=== PATIENT | male | born 1985 | race Asian ===

== ENCOUNTER 2016-07-02 01:37 | Emergency (ER) | payer MEDICAID, OTHER ==
[~2016-07-02 01:37] MED LIST: ARTIDRO EACH EYE; BENZOTROPINE PO; CELE10TA9 PO; CHLO100 PO; DOCU100T9 PO; FLUT50SP; HALO10 PO; LORA1TAB PO
[2016-07-02 02:03] VITALS: BP 141/88; PULSE 71; RESP 18; TEMP 97.8; O2SAT 98
[2016-07-02] MEDS ORDERED: POLYSOL14 EACH EYE (02:25)
[2016-07-02] MEDS ORDERED: CELE10TA PO (02:25)
[2016-07-02] MEDS ORDERED: HALO10TA PO ×2 (02:25→07:39)
[2016-07-02] MEDS ORDERED: CHLO100T2 PO (02:25)
[2016-07-02] MEDS ORDERED: LORA1TAB12 PO (02:25)
[2016-07-02] MEDS ORDERED: IBUPROFEN 800 MG TAB PO ONE (02:30)
--- NOTE | 2016-07-02 02:33 | PD ---
HPI Chief Complaint: Psychiatric Symptoms Time Seen by Provider: 02:27 Travel History International Travel<30 days: No Contact w/Intl Traveler<30days: No Traveled to known affect area: No History of Present Illness HPI 30-year-old male presents to emergency department from [facility] for medical clearance. The patient had ran away from his fci. He states that he ran away because he was hearing voices telling him to hurt himself. He claims that is been compliant with his medications. He denies any active plan on self-harm. He denies any toxic ingestions. The patient states that he would like to get help. The patient complains of a toothache. He denies any toxic ingestions. No drugs or alcohol. No substance abuse. Patient denies any suicidal homicidal ideation. 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) Diabetes: No Diminished Hearing: No Endocrine: No Gastrointestinal Disorders: No Genitourinary: No Headaches: Yes (OCCASIONAL ) Hepatitis: Yes (PAST HX B OR C ) Hypertension: No Immune Disorder: No Implanted Vascular Access Dvce: No Musculoskeletal: Yes (L KNEE HURTS AT TIMES) Neurologic: No Psychiatric: Yes Reproductive: No Respiratory: Yes Schizophrenia: Yes Sleep Apnea: Yes (USES C-PAP) Past Surgical History Abdominal Surgery: No Cardiac Surgery: No Ear Surgery: No Endocrine Surgery: No Eye Surgery: No Genitourinary Surgery: No Neurologic Surgery: No Oral Surgery: No Thoracic Surgery: No Other Surgery: Yes Social History Alcohol Use: No Tobacco Use: Yes (2PPD ) Substance Use: No Allergies-Medications (Allergen,Severity, Reaction): Coded Allergies: No Known Allergies (Verified , 07/02/16) Reported Meds & Prescriptions Reported Meds & Active Scripts Active Amoxicillin 500 Mg Cap 500 Mg PO TID Reported Lorazepam 1 Mg Tab 1 Mg PO BID PRN Haloperidol 10 Mg Tab 10 Mg PO DAILY Celexa (Citalopram Hydrobromide) 10 Mg Tab 10 Mg PO DAILY Chlorpromazine (Chlorpromazine HCl) 100 Mg Tab 100 Mg PO TID PRN Artificial Tears Opth Drops (Polyvinyl Alcohol-Povidone Opth Drops) 0.5-0.6% Soln 1-2 Drop EACH EYE TID PRN [Benzotropine] 1 Mg PO BID Review of Systems Except as stated in HPI: all other systems reviewed are Neg General / Constitutional: No: Fever, Chills Eyes: No: Diploplia, Blurred Vision HENT: Positive: Dental Difficulties, No: Congestion, Neck Stiffness, Earache Cardiovascular: No: Chest Pain or Discomfort, Palpitations Respiratory: No: Cough, Shortness of Breath Genitourinary: No: Urgency, Frequency Musculoskeletal: No: Weakness Psychiatric: Positive: Suicidal Ideations, Disorder of Thought, Mood Disorder, Substance Abuse, No: Anxiety, Depression Physical Exam Narrative GENERAL: Well-nourished, well-developed patient. SKIN: Warm and dry. HEAD: Normocephalic and atraumatic. EYES: No scleral icterus. No injection or drainage. ENT: No nasal drainage noted. Mucous membranes pink. Airway patent. Patient has tenderness to percussion on tooth #30. There is some mild gingival erythema and edema. He has had multiple dental fillings. NECK: Supple, trachea midline. Moves head freely without obvious discomfort. CARDIOVASCULAR: Regular rate and rhythm without murmurs, gallops, or rubs. RESPIRATORY: Breath sounds equal bilaterally. No accessory muscle use. GASTROINTESTINAL: Abdomen soft, non-tender, nondistended. EXTREMITIES: No cyanosis or edema. BACK: Nontender without obvious deformity. No CVA tenderness. NEURO: Patient is alert and oriented. no sensorimotor deficits. Nonfocal. Normal speech. PSYCH: No delusions. No auditory or visual hallucinations. Data Data Last Documented VS Vital Signs Date Time Temp Pulse Resp B/P Pulse Ox O2 Delivery O2 Flow Rate FiO2 07/02/16 02:08 71 18 07/02/16 02:03 97.8 141/88 98 Orders Complete Blood Count With Diff (07/02/16 01:44) Comprehensive Metabolic Panel (07/02/16 01:44) Drug Screen, Random Urine (07/02/16 01:44) Alcohol (Ethanol) (07/02/16 01:44) Salicylates (Aspirin) (07/02/16 01:44) Tylenol (Acetaminophen) (07/02/16 01:44) Ibuprofen (Motrin) (07/02/16 02:30) Amoxicillin (Trimox) (07/02/16 03:00) Labs Laboratory Tests Test 07/02/16 02:28 White Blood Count 6.6 TH/MM3 Red Blood Count 5.43 MIL/MM3 Hemoglobin 15.2 GM/DL Hematocrit 45.2 % Mean Corpuscular Volume 83.2 FL Mean Corpuscular Hemoglobin 28.1 PG Mean Corpuscular Hemoglobin 33.7 % Concent Red Cell Distribution Width 13.2 % Platelet Count 246 TH/MM3 Mean Platelet Volume 8.6 FL Neutrophils (%) (Auto) 51.4 % Lymphocytes (%) (Auto) 35.5 % Monocytes (%) (Auto) 10.1 % Eosinophils (%) (Auto) 2.0 % Basophils (%) (Auto) 1.0 % Neutrophils # (Auto) 3.4 TH/MM3 Lymphocytes # (Auto) 2.3 TH/MM3 Monocytes # (Auto) 0.7 TH/MM3 Eosinophils # (Auto) 0.1 TH/MM3 Basophils # (Auto) 0.1 TH/MM3 CBC Comment DIFF FINAL Differential Comment Sodium Level 142 MEQ/L Potassium Level 4.0 MEQ/L Chloride Level 107 MEQ/L Carbon Dioxide Level 27.6 MEQ/L Anion Gap 7 MEQ/L Blood Urea Nitrogen 14 MG/DL Creatinine 0.95 MG/DL Estimat Glomerular Filtration 92 ML/MIN Rate Random Glucose 81 MG/DL Calcium Level 9.0 MG/DL Total Bilirubin 0.3 MG/DL Aspartate Amino Transf 21 U/L (AST/SGOT) Alanine Aminotransferase 43 U/L (ALT/SGPT) Alkaline Phosphatase 83 U/L Total Protein 7.0 GM/DL Albumin 3.9 GM/DL Salicylates Level LESS THAN 1.7 MG/DL Urine Opiates Screen NEG Acetaminophen Level LESS THAN 2.0 MCG/ML Urine Barbiturates Screen NEG Urine Amphetamines Screen NEG Urine Benzodiazepines Screen NEG Urine Cocaine Screen NEG Urine Cannabinoids Screen NEG Ethyl Alcohol Level LESS THAN 3 MG/DL MDM Medical Decision Making Medical Screen Exam Complete: No Emergency Medical Condition: No Medical Record Reviewed: No Interpretation(s) CBC & BMP Diagram 07/02/16 02:28 Differential Diagnosis MDM: High Differential diagnoses: Schizophrenia, schizoaffective disorder, bipolar, anxiety, depression, adjustment reaction, mood disorder NOS, ODD, depressive disorder NOS, dementia, dementia with agitation, psychosis NOS, substance induced mood disorder, intermittent explosive disorder, Asperger syndrome, infection,electrolyte abnormality, malingering. . Narrative Course Patient's given Motrin 600 and amoxicillin 500 mg by mouth. Mental health screening discussed with the patient. Psychiatric screen ordered Patient's been medically cleared Schizophrenia, dental abscess Diagnosis Primary Impression: Schizophrenia Qualified Code: F20.9 - Schizophrenia, unspecified type Additional Impression: Dental abscess Additional Instructions: Rest. Saltwater gargles. [place] oil on cotton balls. 3 Advil every 6 hours. Amoxicillin and Ultram. follow-up with a dentist as soon as possible. And return to the ER if any problems. Med/Other Pt SpecificInfo: Prescription(s) given Scripts Amoxicillin 500 Mg [id number] Mg PO TID #30 CAP Prov:Kostas Currie MD 07/02/16 Condition: Stable Marck Burris Jul 02, 2016 02:33 Marck Burris Jul 02, 2016 02:33
[2016-07-02 02:41] LABS: AUTOMATED NEUTROPHIL # 3.4 TH/MM3 (1.8-7.7); BASOPHIL # 0.1 TH/MM3 (0-0.2); EOSINOPHIL # 0.1 TH/MM3 (0-0.4); HEMATOCRIT 45.2 % (39.0-51.0); HEMO FLAGS DIFF FINAL; LYMPH % 35.5 % (9.0-44.0); LYMPHOCYTE # 2.3 TH/MM3 (1.0-4.8); MEAN CELL VOLUME 83.2 FL (80.0-100.0); MEAN CORPUSCULAR HEMOGLOBIN 28.1 PG (27.0-34.0); MEAN CORPUSCULAR HGB CONC 33.7 % (32.0-36.0); MONO % 10.1 % (0.0-8.0); NEUT % 51.4 % (16.0-70.0); PLATELET COUNT 246 TH/MM3 (150-450); RED BLOOD COUNT 5.43 MIL/MM3 (4.50-5.90); RED CELL DISTRIBUTION WIDTH 13.2 % (11.6-17.2); WHITE BLOOD COUNT 6.6 TH/MM3 (4.0-11.0)
[2016-07-02 02:47] LABS: AMPHETAMINE, URINE NEG (NEG); BARBITURATES, URINE NEG (NEG); COCAINE, URINE NEG (NEG)
[2016-07-02] MEDS ORDERED: AMOXICILLIN (TRIHYDRATE) 500 MG CAP PO ONE (03:00)
[2016-07-02] MEDS ORDERED: AMOX500C PO (03:00)
[2016-07-02 03:10] LABS: ALT (GPT) 43 U/L (12-78); ANION GAP 7 MEQ/L (5-15); AST (GOT) 21 U/L (15-37); BICARBONATE 27.6 MEQ/L (21.0-32.0); BLOOD UREA NITROGEN 14 MG/DL (7-18); CHLORIDE 107 MEQ/L (98-107); GLOMERULAR FILTRATION RATE 92 ML/MIN (>89); SODIUM (NA) 142 MEQ/L (136-145)
[2016-07-02 03:11] LABS: ALKALINE PHOSPHATASE 83 U/L (45-117); TOTAL BILIRUBIN ADULT 0.3 MG/DL (0.2-1.0)
[2016-07-02 03:16] LABS: ACETAMINOPHEN LESS THAN 2.0 MCG/ML (10.0-30.0)
[2016-07-02 06:27] VITALS: BP 133/71; PULSE 89; RESP 17; O2SAT 98
[2016-07-02] MEDS ORDERED: BENZ0.5T PO (07:39)
[2016-07-02] MEDS ORDERED: FLUT50SP EACH NARE (07:39)
[2016-07-02] MEDS ORDERED: REME15TA PO (07:39)
[2016-07-02] MEDS ORDERED: [UNRECOGNIZED DRUG - OTHER] TOPICAL (07:39)
[2016-07-02] MEDS ORDERED: HALO100P IM (07:39)
[2016-07-02] MEDS ORDERED: TRIAMCINOLONE (07:39)
--- NOTE | 2016-07-02 09:37 | PD ---
History of Present Illness Chief Complaint: Psychiatric Symptoms Time Seen by Provider: 09:15 Travel History International Travel<30 Days: No Contact w/Intl Traveler<30days: No Known affected area: No Legal Status Legal Status: Voluntary History of Present Illness: History of Present Illness HPI 30-year-old male with history of schizophrenia as well as intellectual disability who presents to emergency department from [facility] for medical clearance. The patient is on a voluntary status. As per documentation and as per RN report the patient had ran away from his usp because he was hearing voices that were telling him to hurt himself. He took a knife and scraped on e of his fingers. He then went to the police and asked to be taken to [facility]. The patietn was monitored here in J pod and he presented no behavioral concerns and no suicidality. EMR is reviewed. His toxicology is negative. He has had previous admissions to [facility] and his last admission here was in 2014 under the care of Dr. Verde. Patient is seen in J pod. Awake. alert and oriented oriental male in hospital gown. He is calm, engaging and cooperative. His speech is clear and logical. He states " I am feeling better and I want to go back n to the usp". In terms of recent events leading to ED visit he reports he was hearing voices and then left the usp. He has a hx of auditory hallucinations and this morning he denies hearing any at all. There is no suicidal or homicidal ideation , intent or plan. He tells me that he is medication compliant. Recent stressors include move to new usp 4 weeks ago. He reports he likes this new usp. His brother is also a patient in our [facility] at this time. We discussed positive coping skills to manage his hallucinations and he volunteers that he can talk to someone, go for a walk or listen to music if he has an increase in such hallucinations. 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) Diabetes: No Diminished Hearing: No Endocrine: No Gastrointestinal Disorders: No Genitourinary: No Headaches: Yes (OCCASIONAL ) Hepatitis: Yes (PAST HX B OR C ) Hypertension: No Immune Disorder: No Implanted Vascular Access Dvce: No Musculoskeletal: Yes (L KNEE HURTS AT TIMES) Neurologic: No Psychiatric: Yes Reproductive: No Respiratory: Yes Schizophrenia: Yes Sleep Apnea: Yes (USES C-PAP) Past Surgical History Abdominal Surgery: No Cardiac Surgery: No Ear Surgery: No Endocrine Surgery: No Eye Surgery: No Genitourinary Surgery: No Neurologic Surgery: No Oral Surgery: No Thoracic Surgery: No Other Surgery: Yes Psychiatric History Psychiatric History Hx Psychiatric Treatment: SCHIZOPHRENIA, BIPOLAR. MILD MR AND EXPLOSIVE DISORDER as per record. Current outpatietn provider is Dr. Nolasco History of Inpatient Treatment: Yes Guns or firearms in home: No Social History Born in [facility]. Moved with his family to [facility] at age 4 years. He is single and resides in a usp. he has been at this usp x 4 weeks. He attends a work program at [employer]. No hx of abuse reported. No history. Hx Alcohol Use: No Hx Tobacco Use: Yes (2PPD ) Hx Substance Use: No Substance Use Type: Nicotine/Cigarettes Hx of Substance Use Treatment: No Family Psychiatric History Positive for siblings and mother with mental illness. Allergies-Medications (Allergen,Severity, Reaction): Coded Allergies: No Known Allergies (Verified , 07/02/16) Reported Meds & Prescriptions Reported Meds & Active Scripts Active Amoxicillin 500 Mg Cap 500 Mg PO TID Reported [Zoltaren 1% ] TOPICAL BID [Triamcinolone Cr1%] Fluticasone Nasal [place] 50 Mcg/Act Naspr 50 Mcg EACH NARE BID 50 mcg/spray Remeron (Mirtazapine) 15 Mg Tab 15 Mg PO HS Benztropine (Benztropine Mesylate) 0.5 Mg Tab 0.5 Mg PO HS Haloperidol 10 Mg Tab 10 Mg PO TID Haldol Decanoate Inj (Haloperidol Decanoate) 100 Mg/Ml Inj 100 Mg IM Q28D Review of Systems Except as stated in HPI: all other systems reviewed are Neg Psychiatric: COMPLAINS OF: Hallucinations Exam Alert: Yes [place]: Person (ox4) Mood: Calm Affect: Appropriate Speech: Clear, Logical Eye Contact: Indirect Memory Intact: Comment (no gross impairment) Hallucinations: Other (denies any at present) Delusions: No Suicidal: Ideation (neagtive) Homicidal: Ideation (negative) Insight/Judgement Fair. Not impaired. MDM Medical Decision Making Medical Record Reviewed: Yes Assessment/Plan 30 year old male under a voluntary status who cut his finger with a knife and eloped from his usp. He then walked to police and requested to be sent to [facility]. Patient at present with no suicidality and no homicidality. he at [facility] time denies any active hallucinatory process. He is cleared for discharge to return to his usp and continue outpatient treatment. Psychoeducation is provided. Orders Complete Blood Count With Diff (07/02/16 01:44) Comprehensive Metabolic Panel (07/02/16 01:44) Drug Screen, Random Urine (07/02/16 01:44) Alcohol (Ethanol) (07/02/16 01:44) Salicylates (Aspirin) (07/02/16 01:44) Tylenol (Acetaminophen) (07/02/16 01:44) Ibuprofen (Motrin) (07/02/16 02:30) Amoxicillin (Trimox) (07/02/16 03:00) Psych Screen (07/02/16 03:39) Diet Regular Basic (07/02/16 Breakfast) Diet Regular Basic (07/02/16 Lunch) Results Vital Signs Date Time Temp Pulse Resp B/P Pulse Ox O2 Delivery O2 Flow Rate FiO2 07/02/16 06:27 89 17 133/71 98 Room Air 07/02/16 02:08 71 18 07/02/16 02:03 97.8 71 18 141/88 98 Laboratory Tests Test 07/02/16 02:28 White Blood Count 6.6 Red Blood Count 5.43 Hemoglobin 15.2 Hematocrit 45.2 Mean Corpuscular Volume 83.2 Mean Corpuscular Hemoglobin 28.1 Mean Corpuscular Hemoglobin 33.7 Concent Red Cell Distribution Width 13.2 Platelet Count 246 Mean Platelet Volume 8.6 Neutrophils (%) (Auto) 51.4 Lymphocytes (%) (Auto) 35.5 Monocytes (%) (Auto) 10.1 Eosinophils (%) (Auto) 2.0 Basophils (%) (Auto) 1.0 Neutrophils # (Auto) 3.4 Lymphocytes # (Auto) 2.3 Monocytes # (Auto) 0.7 Eosinophils # (Auto) 0.1 Basophils # (Auto) 0.1 CBC Comment DIFF FINAL Differential Comment Sodium Level 142 Potassium Level 4.0 Chloride Level 107 Carbon Dioxide Level 27.6 Anion Gap 7 Blood Urea Nitrogen 14 Creatinine 0.95 Estimat Glomerular Filtration 92 Rate Random Glucose 81 Calcium Level 9.0 Total Bilirubin 0.3 Aspartate Amino Transf 21 (AST/SGOT) Alanine Aminotransferase 43 (ALT/SGPT) Alkaline Phosphatase 83 Total Protein 7.0 Albumin 3.9 Salicylates Level LESS THAN 1.7 Urine Opiates Screen NEG Acetaminophen Level LESS THAN 2.0 Urine Barbiturates Screen NEG Urine Amphetamines Screen NEG Urine Benzodiazepines Screen NEG Urine Cocaine Screen NEG Urine Cannabinoids Screen NEG Ethyl Alcohol Level LESS THAN 3 Diagnosis Primary Impression: Schizophrenia Additional Impression: Dental abscess Psychiatrically Cleared: Yes Additional Instructions: Rest. [place] gargles. [place] oil on cotton balls. 3 Advil every 6 hours. Amoxicillin and Ultram. follow-up with a dentist as soon as possible. And return to the ER if any problems. Prescriptions Amoxicillin 500 Mg [id number] Mg PO TID #30 CAP Prov:Kostas Currie MD 07/02/16 Disposition: 01 DISCHARGE HOME Condition: Stable Problem Qualifiers Primary Impression: Schizophrenia Qualified Code: F20.3 - Undifferentiated schizophrenia Paula Moseley Jul 02, 2016 09:37
== END 2016-07-02 14:05 | disposition home or self-care (01) ==
LOC: NEPD 01:37 → NEPJ 14:05
DX: F20.3 Undifferentiated schizophrenia (principal); K04.7 Periapical abscess without sinus; K08.89 Other specified disorders of teeth and supporting structures; G47.30 Sleep apnea, unspecified; F17.200 Nicotine dependence, unspecified, uncomplicated; Z86.59 Personal history of other mental and behavioral disorders; Z86.19 Personal history of other infectious and parasitic diseases; Z87.39 Personal history of other diseases of the musculoskeletal system and connective tissue; Z87.09 Personal history of other diseases of the respiratory system
CPT/HCPCS: 80053; 80307; 85025; 99283

== ENCOUNTER 2016-08-29 21:53 | Emergency (ER) | payer OTHER ==
[~2016-08-29] VITALS: Ht 177.8 cm; Wt 95.0 kg
[~2016-08-29 21:53] MED LIST changes: +AMOX500C PO; -ARTIDRO EACH EYE; +BENZ0.5T PO; -BENZOTROPINE PO; -CELE10TA9 PO; -CHLO100 PO; -DOCU100T9 PO; -FLUT50SP; +FLUT50SP EACH NARE; -HALO10 PO; +HALO100P IM; +HALO10TA PO; -LORA1TAB PO; +REME15TA PO; +TRIAMCINOLONE; +[UNRECOGNIZED DRUG - OTHER] TOPICAL
[2016-08-29 22:05] VITALS: BP 138/76; PULSE 61; RESP 20; TEMP 98; O2SAT 96
--- NOTE | 2016-08-29 22:25 | PD ---
HPI Chief Complaint: Psychiatric Symptoms Time Seen by Provider: 22:11 Travel History International Travel<30 days: No Contact w/Intl Traveler<30days: No Traveled to known affect area: No History of Present Illness HPI 31-year-old male was brought to [place] emergency room from [facility] for psychiatric evaluation for suicidal threat. Patient was threatening suicidal today. Patient has history of schizophrenia and bipolar disorder. Patient is on medications for that. Patient denies any headache. Patient denies any chest pain or shortness of breath. Patient denies abdominal pain. Patient denies any nausea vomiting diarrhea. Patient denies any illicit drug abuse or alcohol abuse. 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) Diabetes: No Diminished Hearing: No Endocrine: No Gastrointestinal Disorders: No Genitourinary: No Headaches: Yes (OCCASIONAL ) Hepatitis: Yes (PAST HX B OR C ) Hypertension: No Immune Disorder: No Implanted Vascular Access Dvce: No Musculoskeletal: Yes (L KNEE HURTS AT TIMES) Neurologic: No Psychiatric: Yes Reproductive: No Respiratory: Yes Schizophrenia: Yes Sleep Apnea: Yes Tetanus Vaccination: < 5 Years Influenza Vaccination: No Past Surgical History Surgical History: No Previous Surgery Abdominal Surgery: No Cardiac Surgery: No Ear Surgery: No Endocrine Surgery: No Eye Surgery: No Genitourinary Surgery: No Neurologic Surgery: No Oral Surgery: No Thoracic Surgery: No Other Surgery: Yes Social History Alcohol Use: No Tobacco Use: Yes (2PPD ) Substance Use: No Allergies-Medications (Allergen,Severity, Reaction): Coded Allergies: No Known Allergies (Verified , 07/02/16) Reported Meds & Prescriptions Reported Meds & Active Scripts Active Reported Fluticasone Nasal [place] 50 Mcg/Act Naspr 50 Mcg EACH NARE BID 50 mcg/spray Remeron (Mirtazapine) 15 Mg Tab 15 Mg PO HS Benztropine (Benztropine Mesylate) 0.5 Mg Tab 0.5 Mg PO HS Haloperidol 10 Mg Tab 10 Mg PO TID Review of Systems General / Constitutional: No: Fever Eyes: No: Visual changes HENT: No: Headaches Cardiovascular: No: Chest Pain or Discomfort Respiratory: No: Shortness of Breath Gastrointestinal: No: Abdominal Pain Genitourinary: No: Dysuria Musculoskeletal: No: Pain Skin: No Rash Neurologic: No: Weakness Psychiatric: No: Depression Endocrine: No: Polydipsia Hematologic/Lymphatic: No: Easy Bruising Physical Exam Narrative GENERAL: Well-nourished, well-developed patient. SKIN: Focused skin assessment warm/dry. HEAD: Normocephalic. EYES: No scleral icterus. No injection or drainage. NECK: Supple, trachea midline. No JVD or lymphadenopathy. CARDIOVASCULAR: Regular rate and rhythm without murmurs, gallops, or rubs. RESPIRATORY: Breath sounds equal bilaterally. No accessory muscle use. GASTROINTESTINAL: Abdomen soft, non-tender, nondistended. MUSCULOSKELETAL: No cyanosis, or edema. BACK: Nontender without obvious deformity. No CVA tenderness. Neurologic exam normal. Data Data Last Documented VS Vital Signs Date Time Temp Pulse Resp B/P Pulse Ox O2 Delivery O2 Flow Rate FiO2 08/29/16 22:05 98.0 61 20 138/76 96 Orders Complete Blood Count With Diff (08/29/16 22:20) Comprehensive Metabolic Panel (08/29/16 22:20) Psych Screen (08/29/16 22:20) Drug Screen, Random Urine (08/29/16 22:20) Labs Laboratory Tests Test 08/29/16 08/29/16 22:33 22:35 White Blood Count 6.3 TH/MM3 Red Blood Count 5.44 MIL/MM3 Hemoglobin 15.5 GM/DL Hematocrit 45.9 % Mean Corpuscular Volume 84.5 FL Mean Corpuscular Hemoglobin 28.5 PG Mean Corpuscular Hemoglobin 33.8 % Concent Red Cell Distribution Width 13.3 % Platelet Count 235 TH/MM3 Mean Platelet Volume 8.8 FL Neutrophils (%) (Auto) 53.4 % Lymphocytes (%) (Auto) 36.4 % Monocytes (%) (Auto) 7.3 % Eosinophils (%) (Auto) 2.1 % Basophils (%) (Auto) 0.8 % Neutrophils # (Auto) 3.3 TH/MM3 Lymphocytes # (Auto) 2.3 TH/MM3 Monocytes # (Auto) 0.5 TH/MM3 Eosinophils # (Auto) 0.1 TH/MM3 Basophils # (Auto) 0.0 TH/MM3 CBC Comment DIFF FINAL Differential Comment Sodium Level 142 MEQ/L Potassium Level 3.9 MEQ/L Chloride Level 107 MEQ/L Carbon Dioxide Level 28.6 MEQ/L Anion Gap 6 MEQ/L Blood Urea Nitrogen 13 MG/DL Creatinine 1.00 MG/DL Estimat Glomerular Filtration 86 ML/MIN Rate Random Glucose 79 MG/DL Calcium Level 9.0 MG/DL Total Bilirubin 0.2 MG/DL Aspartate Amino Transf 35 U/L (AST/SGOT) Alanine Aminotransferase 37 U/L (ALT/SGPT) Alkaline Phosphatase 86 U/L Total Protein 7.3 GM/DL Albumin 3.9 GM/DL Urine Opiates Screen NEG Urine Barbiturates Screen NEG Urine Amphetamines Screen NEG Urine Benzodiazepines Screen NEG Urine Cocaine Screen NEG Urine Cannabinoids Screen NEG MDM Medical Decision Making Medical Screen Exam Complete: Yes Emergency Medical Condition: Yes Interpretation(s) 23:50 PM. CBC within normal limits. CMP within normal limit. Urine drug screen negative. Differential Diagnosis Differential diagnosis including schizophrenia, bipolar disorder, suicidal. Narrative Course 31-year-old male with history of schizophrenia and bipolar disorder and threatening suicidal. 23:52 PM. Patient is medically cleared for psychiatric evaluation and disposition. Gumaro Amos MD Aug 29, 2016 22:25
[2016-08-29 23:00] LABS: AUTOMATED NEUTROPHIL # 3.3 TH/MM3 (1.8-7.7); BASOPHIL % 0.8 % (0.0-2.0); EOSINOPHIL # 0.1 TH/MM3 (0-0.4); EOSINOPHIL % 2.1 % (0.0-4.0); HEMATOCRIT 45.9 % (39.0-51.0); HEMO FLAGS DIFF FINAL; LYMPH % 36.4 % (9.0-44.0); LYMPHOCYTE # 2.3 TH/MM3 (1.0-4.8); MEAN CELL VOLUME 84.5 FL (80.0-100.0); MEAN CORPUSCULAR HEMOGLOBIN 28.5 PG (27.0-34.0); MEAN CORPUSCULAR HGB CONC 33.8 % (32.0-36.0); MONO % 7.3 % (0.0-8.0); NEUT % 53.4 % (16.0-70.0); PLATELET COUNT 235 TH/MM3 (150-450); RED BLOOD COUNT 5.44 MIL/MM3 (4.50-5.90); RED CELL DISTRIBUTION WIDTH 13.3 % (11.6-17.2); WHITE BLOOD COUNT 6.3 TH/MM3 (4.0-11.0)
[2016-08-29 23:12] LABS: AMPHETAMINE, URINE NEG (NEG); BARBITURATES, URINE NEG (NEG); COCAINE, URINE NEG (NEG)
[2016-08-29 23:32] LABS: ALKALINE PHOSPHATASE 86 U/L (45-117); TOTAL BILIRUBIN ADULT 0.2 MG/DL (0.2-1.0)
[2016-08-29 23:36] LABS: ALT (GPT) 37 U/L (12-78); ANION GAP 6 MEQ/L (5-15); AST (GOT) 35 U/L (15-37); BICARBONATE 28.6 MEQ/L (21.0-32.0); BLOOD UREA NITROGEN 13 MG/DL (7-18); CHLORIDE 107 MEQ/L (98-107); GLOMERULAR FILTRATION RATE 86 ML/MIN (>89); SODIUM (NA) 142 MEQ/L (136-145)
[2016-08-29 23:45] LABS: POTASSIUM 3.9 MEQ/L (3.5-5.1)
[2016-08-30 01:26] VITALS: BP 141/92; PULSE 58; RESP 18; O2SAT 98
[2016-08-30] MEDS ORDERED: HALO100P IM (07:53)
[2016-08-30] MEDS ORDERED: TRIAPOW6 TOPICAL (07:53)
[2016-08-30] MEDS ORDERED: ZOLTAREN TOPICAL (07:53)
--- NOTE | 2016-08-30 09:17 | PD.CONS ---
Provisional Diagnosis Admission Date Troy I. Schizophrenia chronic paranoid type f 20.0 History of Present Illness Service Psychiatry Consult Requested By EDMD Reason for Consult Baumann act Primary Care Physician Bri Nolasco MD HPI Patient is a 31-year-old male well-known post multiple prior contacts comes here under Baumann act from his senior living by the [facility]'s office it is 08/29/16 at 1640 9 PM that document reviewed states essentially Emerald advised he wanted to and he was going to carry out the threat by stabbing himself with a knife. Resecured Emerald to prevent said act of self-harm. Patient seen screened in ED urine toxicology negative bladder: Negative. At the present time patient is slightly in his room on J pod nurse Peggy present throughout session patient did recognize me from prior contact. He is calm cooperative said he got upset with the staff at the senior living and made those statements. He regrets making the statements now he now denies any suicidality homicidality voices or visions. He states she's been compliant with his medications and does wish to return to his senior living. The nurses been in contact with the staff the senior living they feel that this is just an acting out behavior. They feel quite comfortable having him return to the senior living today without any further need for hospitalization. They say he has been compliant with his medications. Thus I will lift the Baumann act. Allow the patient to return to his senior living. No Rx by me. He may continue schedule medications Review of Systems Constitutional: DENIES: Diaphoretic episodes, Fatigue, Fever, Weight gain, Weight loss, Chills, Dizziness, Change in appetite, Night Sweats Endocrine: DENIES: Heat/cold intolerance, Polydipsia, Polyuria, Polyphagia Eyes: DENIES: Blurred vision, Diplopia, Eye inflammation, Eye pain, Vision loss , Photosensitivity, Double Vision Ears, nose, mouth, throat: DENIES: Tinnitus, Hearing loss, Vertigo, Nasal discharge, Oral lesions, Throat pain, Hoarseness, Ear Pain, Running Nose, Epistaxis, Sinus Pain, Toothache, Odynophagia Respiratory: DENIES: Apneas, Cough, Snoring, Wheezing, Hemoptysis, Sputum production, Shortness of breath Cardiovascular: DENIES: Chest pain, Palpitations, Syncope, Dyspnea on Exertion , PND, Lower Extremity Edema, Orthopnea, Claudication Gastrointestinal: DENIES: Abdominal pain, Black stools, Bloody stools, Constipation, Diarrhea, Nausea, Vomiting, Difficulty Swallowing, Anorexia Genitourinary: DENIES: Sexual dysfunction, Urinary frequency, Urinary incontinence, Urgency, Hematuria, Dysuria, Nocturia, Penile Discharge, Testicular Pain, Testicular Swelling Musculoskeletal: DENIES: Joint pain, Muscle aches, Stiffness, Joint Swelling, Back pain, Neck pain Integumentary: DENIES: Abnormal pigmentation, Nail changes, Pruritus, Rash Hematologic/lymphatic: DENIES: Bruising, Lymphadenopathy Immunologic/allergic: DENIES: Eczema, Urticaria Neurologic: DENIES: Abnormal gait, Headache, Localized weakness, Paresthesias, Seizures, Speech Problems, Tremor, Poor Balance Psychiatric: DENIES: Anxiety, Confusion, Mood changes, Depression, Hallucinations, Agitation, Suicidal Ideation, Homicidal Ideation, Delusions Past Family Social History Coded Allergies: No Known Allergies (Verified , 07/02/16) Past Medical History Patient cleared through ED Reported Medications [Zoltaren] No Conflict Check1 % Topical 08/30/16 Triamcinolone (Bulk) (Triamcinolone)1 Pow Pow1 % Topical 3 Pm 08/30/16 Haloperidol Decanoate Inj (Haldol Decanoate Inj)100 Mg/Ml [id number] Mg IM Q28D #1 VIAL Ref 0 08/30/16 Fluticasone Nasal [place] 50 Mcg/Act Naspr50 Mcg EACH NARE BID #1 BOTTLE Ref 0 50 mcg/spray 07/02/16 Mirtazapine (Remeron)15 Mg Tab15 Mg PO HS #30 TAB Ref 0 07/02/16 Benztropine 0.5 Mg Tab0.5 Mg PO HS #30 TAB Ref 0 07/02/16 Haloperidol 10 Mg Tab10 Mg PO TID Ref 0 07/02/16 Family History Patient is a family history mental illness Social History She lives in senior living Patient's Strengths (min. 2) Patient verbal cooperative able to access health care Physical Exam Patient seen screen in ED exam reviewed and agreed with Vital Signs Vital Signs Date Time Temp Pulse Resp B/P Pulse Ox O2 Delivery O2 Flow Rate FiO2 08/30/16 01:26 58 18 141/92 98 Room Air 08/29/16 22:05 98.0 Mental Status Examination Alert fairly well oriented male lying quietly in his bed on J pod. He has normoactive, his mood is euthymic to somewhat restricted with decreased range intensity, speech rate and rhythm the slow somewhat simple and concrete. Though no auditory or visual hallucinations no delusions insight and judgment is poor cognition is somewhat impaired Appearance Somewhat scruffy Speech: Hesitant, Slow Orientation: Person, Place Memory: Unremarkable (fair) Thought Process: Linear Thought Content: Unremarkable Language Poor Fund of Knowledge Poor Hallucination Type: None (denies) Attention and Concentration: Other (poor) Suicidal Ideation: No Previous Suicide Attempts: No Homicidal Ideation: No Previous Homicide Attempts: No Insight: Poor Judgment: Poor Affect: Other (decreased range and intensity) Mood: Other (restricted) Motor Activity: Normal gait Assessment & Plan Problem List: (1) Schizophrenia ICD Code: F20.9 Assessment & Plan Estimated LOS: days patient does not meet Baumann criteria will lift Baumann act no Rx by me patient continue schedule medications at his senior living follow-up practitioner in the community Discharge Planning See above Request HC Surrog/Guard Advoc?: No Problem Qualifiers (1) Schizophrenia: Qualified Code: F20.0 - Paranoid schizophrenia Anthony Boswell MD Aug 30, 2016 09:17
== END 2016-08-30 11:19 | disposition home or self-care (01) ==
LOC: NEPD 21:53 → NEPJ 08-30 11:19
DX: F20.0 Paranoid schizophrenia (principal); G47.30 Sleep apnea, unspecified; F17.210 Nicotine dependence, cigarettes, uncomplicated; F70 Mild intellectual disabilities
CPT/HCPCS: 80053; 80307; 85025; 99284

== ENCOUNTER 2016-10-04 22:54 | Emergency (ER) | payer OTHER ==
[~2016-10-04] VITALS: Ht 185.4 cm; Wt 89.0 kg
[~2016-10-04 22:54] MED LIST changes: -AMOX500C PO; -TRIAMCINOLONE; +TRIAPOW6 TOPICAL; +ZOLTAREN TOPICAL; -[UNRECOGNIZED DRUG - OTHER] TOPICAL
[2016-10-04 23:32] VITALS: BP 141/93; PULSE 77; RESP 18; TEMP 98.7; O2SAT 96
[2016-10-04] MEDS ORDERED: LORA-392 PO (23:32)
[2016-10-04] MEDS ORDERED: PRED20 PO (23:33)
--- NOTE | 2016-10-04 23:34 | PD ---
HPI . Joint pain Chief Complaint: Arthritis Time Seen by Provider: 23:27 Travel History International Travel<30 days: No Contact w/Intl Traveler<30days: No History of Present Illness HPI Patient presents complaining with arthritis pain. This is an ongoing problem for this patient. She is under the care of Dr. Nguyen for [facility]. She is currently taking ibuprofen 800 mg every 8 hours with no relief of her symptoms. Symptoms are exacerbated by being up on her feet. Been off of her feet. She states that she has been confined to the bed in the recent past because of pain. She states that her pain is severe and constant. 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) Diabetes: No Diminished Hearing: No Endocrine: No Gastrointestinal Disorders: No Genitourinary: No Headaches: Yes (OCCASIONAL ) Hepatitis: Yes (PAST HX B OR C ) Hypertension: No Immune Disorder: No Implanted Vascular Access Dvce: No Musculoskeletal: Yes (L KNEE HURTS AT TIMES) Neurologic: No Psychiatric: Yes Reproductive: No Respiratory: Yes Schizophrenia: Yes Sleep Apnea: Yes Past Surgical History Abdominal Surgery: No Cardiac Surgery: No Ear Surgery: No Endocrine Surgery: No Eye Surgery: No Genitourinary Surgery: No Neurologic Surgery: No Oral Surgery: No Thoracic Surgery: No Other Surgery: Yes Social History Alcohol Use: No Tobacco Use: Yes (2PPD ) Substance Use: No Allergies-Medications (Allergen,Severity, Reaction): Coded Allergies: No Known Allergies (Verified , 07/02/16) Reported Meds & Prescriptions Reported Meds & Active Scripts Active Reported [Zoltaren] 1 % TOPICAL Triamcinolone (Triamcinolone (Bulk)) 1 Pow Pow 1 % TOPICAL 3 PM Haldol Decanoate Inj (Haloperidol Decanoate) 100 Mg/Ml Inj 100 Mg IM Q28D Fluticasone Nasal [place] 50 Mcg/Act Naspr 50 Mcg EACH NARE BID 50 mcg/spray Remeron (Mirtazapine) 15 Mg Tab 15 Mg PO HS Benztropine (Benztropine Mesylate) 0.5 Mg Tab 0.5 Mg PO HS Haloperidol 10 Mg Tab 10 Mg PO TID Review of Systems Except as stated in HPI: all other systems reviewed are Neg General / Constitutional: No: Fever, Chills Musculoskeletal: Positive: Arthralgias Physical Exam Narrative GENERAL: Awake and alert and in no acute distress. Markedly obese SKIN: Warm and dry. No redness or warmth of the joints. HEAD: Atraumatic. Normocephalic. EYES: Pupils equal and round. Extraocular movements are intact. NECK: Trachea midline. Neck is supple. CARDIOVASCULAR: Regular rate and rhythm. RESPIRATORY: No accessory muscle use. MUSCULOSKELETAL: No obvious deformities. No edema. Patient walks with a cane. NEUROLOGICAL: Awake and alert. No obvious cranial nerve deficits. Motor grossly within normal limits. Normal speech. PSYCHIATRIC: Appropriate mood and affect; insight and judgment normal. MDM Medical Decision Making Medical Screen Exam Complete: Yes Emergency Medical Condition: Yes Differential Diagnosis Differential diagnosis of joint pain includes but is not limited to arthritis, gout, sprain/strain, fracture, dislocation Narrative Course This patient presents complaining with left hip bilateral knee and left ankle pain which are chronic problems for her. Patient reports a known diagnosis of diabetes. The patient is markedly obese. Furthermore, the patient is not very active and states that she often confines herself to bed. The patient has been advised that movement is good for arthritis. She is also encouraged to lose weight. I will give her a short course of prednisone for her joint pain. She should follow up with her primary care physician for continued treatment. Diagnosis Primary Impression: Arthritis Referrals: Rochelle Nguyen MD Additional Instructions: Try to move around as much she can. Moving around makes your joints feel better. You also need to try to lose some weight. The extra weight makes arthritis pain much worse. Med/Other Pt SpecificInfo: Prescription(s) given Scripts Prednisone 20 Mg Tab60 Mg PO DAILY 5 Days Ref 0 Prov:Shraddha Reina MD 10/04/16 Disposition: 01 DISCHARGE HOME Condition: Stable Shraddha Reina MD Oct 04, 2016 23:33
--- NOTE | 2016-10-04 23:40 | PD ---
HPI Chief Complaint: Psychiatric Symptoms Time Seen by Provider: 23:36 Travel History International Travel<30 days: No Contact w/Intl Traveler<30days: No Traveled to known affect area: No History of Present Illness HPI Patient comes here from [facility] after being Baumann acted by police for stating he wanted to kill himself. Patient admits to suicidal ideations but denies any plans currently. Patient states he tried harming himself a few months ago using a knife. Patient denies any homicidal ideations. Patient only medical complaint is he feels like his stomach is upset but denies any actual pain. Denies any nausea, vomiting, diarrhea, fevers, back pain, chest pain, shortness of breath, or headaches. Patient denies anything making it better or worse. Patient states he ate some cheese that upset stomach. Patient denies being lactose intolerant. 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) Diabetes: No Diminished Hearing: No Endocrine: No Gastrointestinal Disorders: No Genitourinary: No Headaches: Yes (OCCASIONAL ) Hepatitis: Yes (PAST HX B OR C ) Hypertension: No Immune Disorder: No Implanted Vascular Access Dvce: No Musculoskeletal: Yes (L KNEE HURTS AT TIMES) Neurologic: No Psychiatric: Yes Reproductive: No Respiratory: Yes Schizophrenia: Yes Sleep Apnea: Yes Past Surgical History Abdominal Surgery: No Cardiac Surgery: No Ear Surgery: No Endocrine Surgery: No Eye Surgery: No Genitourinary Surgery: No Neurologic Surgery: No Oral Surgery: No Thoracic Surgery: No Other Surgery: Yes Social History Alcohol Use: No Tobacco Use: Yes (2PPD ) Substance Use: No Allergies-Medications (Allergen,Severity, Reaction): Coded Allergies: No Known Allergies (Verified , 07/02/16) Reported Meds & Prescriptions Reported Meds & Active Scripts Active Reported Ativan (Lorazepam) 0.5 Mg Tab 0.5 Mg PO Q6H PRN [Zoltaren] 1 % TOPICAL Triamcinolone (Triamcinolone (Bulk)) 1 Pow Pow 1 % TOPICAL 3 PM Haldol Decanoate Inj (Haloperidol Decanoate) 100 Mg/Ml Inj 100 Mg IM Q28D Fluticasone Nasal [place] 50 Mcg/Act Naspr 50 Mcg EACH NARE BID 50 mcg/spray Remeron (Mirtazapine) 15 Mg Tab 15 Mg PO HS Benztropine (Benztropine Mesylate) 0.5 Mg Tab 0.5 Mg PO HS Haloperidol 10 Mg Tab 10 Mg PO TID Review of Systems Except as stated in HPI: all other systems reviewed are Neg Physical Exam Narrative GENERAL: Well-developed, well nourished, in no acute distress, and non-ill appearing. SKIN: Focused skin assessment warm and dry. HEAD: Atraumatic. Normocephalic. EYES: Pupils equal and round. EOMI. No scleral icterus. No injection or drainage. ENT: No nasal bleeding or discharge. Mucous membranes pink and moist. NECK: Trachea midline. Supple. No nuclear rigidity. CARDIOVASCULAR: Regular rate and rhythm. No murmur appreciated. RESPIRATORY: No accessory muscle use. No respiratory distress. Clear to auscultation. Breath sounds equal bilaterally. GASTROINTESTINAL: Abdomen soft, non-tender, nondistended. Hepatic and splenic margins not palpable. Normal bowel sounds 4. No pulsatile mass. MUSCULOSKELETAL: No obvious deformities. No clubbing. No cyanosis. No edema. Full range of motion. NEUROLOGICAL: Awake and alert. No obvious cranial nerve deficits. Motor grossly within normal limits. Normal speech. PSYCHIATRIC: Appropriate mood and affect. Data Data Last Documented VS Vital Signs Date Time Temp Pulse Resp B/P Pulse Ox O2 Delivery O2 Flow Rate FiO2 10/04/16 23:32 98.7 77 18 141/93 96 Orders Prednisone (Deltasone) (10/04/16 23:45) Complete Blood Count With Diff (10/04/16 23:35) Comprehensive Metabolic Panel (10/04/16 23:35) Psych Screen (10/04/16 23:35) Drug Screen, Random Urine (10/04/16 23:35) Alcohol (Ethanol) (10/04/16 23:35) Salicylates (Aspirin) (10/04/16 23:35) Tylenol (Acetaminophen) (10/04/16 23:35) Ondansetron Odt (Zofran Odt) (10/04/16 23:45) Labs Laboratory Tests Test 10/04/16 23:40 White Blood Count 4.3 TH/MM3 Red Blood Count 4.95 MIL/MM3 Hemoglobin 14.4 GM/DL Hematocrit 42.4 % Mean Corpuscular Volume 85.6 FL Mean Corpuscular Hemoglobin 29.0 PG Mean Corpuscular Hemoglobin 33.9 % Concent Red Cell Distribution Width 13.5 % Platelet Count 189 TH/MM3 Mean Platelet Volume 8.8 FL Neutrophils (%) (Auto) 39.9 % Lymphocytes (%) (Auto) 42.5 % Monocytes (%) (Auto) 12.2 % Eosinophils (%) (Auto) 4.2 % Basophils (%) (Auto) 1.2 % Neutrophils # (Auto) 1.7 TH/MM3 Lymphocytes # (Auto) 1.8 TH/MM3 Monocytes # (Auto) 0.5 TH/MM3 Eosinophils # (Auto) 0.2 TH/MM3 Basophils # (Auto) 0.1 TH/MM3 CBC Comment DIFF FINAL Differential Comment Sodium Level 139 MEQ/L Potassium Level 3.6 MEQ/L Chloride Level 108 MEQ/L Carbon Dioxide Level 23.9 MEQ/L Anion Gap 7 MEQ/L Blood Urea Nitrogen 13 MG/DL Creatinine 0.91 MG/DL Estimat Glomerular Filtration 96 ML/MIN Rate Random Glucose 92 MG/DL Calcium Level 8.8 MG/DL Total Bilirubin 0.3 MG/DL Aspartate Amino Transf 20 U/L (AST/SGOT) Alanine Aminotransferase 33 U/L (ALT/SGPT) Alkaline Phosphatase 80 U/L Total Protein 6.7 GM/DL Albumin 3.5 GM/DL Salicylates Level LESS THAN 1.7 MG/DL Acetaminophen Level LESS THAN 2.0 MCG/ML Ethyl Alcohol Level LESS THAN 3 MG/DL MDM Medical Decision Making Medical Screen Exam Complete: Yes Emergency Medical Condition: Yes Differential Diagnosis Homicidal, suicidal, electrolyte abnormality, other Narrative Course Patient was seen and examined. Labs were obtained and reviewed with the exception urine drug screen has not been sent yet. Patient medically cleared for further treatment and evaluation by psych. Final disposition per psych. Diagnosis Primary Impression: Medical clearance for psychiatric admission Condition: Stable Arben Renee Oct 04, 2016 23:40 Arben Renee Oct 04, 2016 23:40
[2016-10-04] MEDS ORDERED: ONDANSETRON ODT 4 MG TAB PO ONE (23:45)
[2016-10-04] MEDS ORDERED: predniSONE 20 MG TAB PO ONE (23:45)
[2016-10-05 00:25] LABS: AUTOMATED NEUTROPHIL # 1.7 TH/MM3 (1.8-7.7); BASOPHIL # 0.1 TH/MM3 (0-0.2); BASOPHIL % 1.2 % (0.0-2.0); EOSINOPHIL # 0.2 TH/MM3 (0-0.4); EOSINOPHIL % 4.2 % (0.0-4.0); HEMATOCRIT 42.4 % (39.0-51.0); HEMO FLAGS DIFF FINAL; LYMPH % 42.5 % (9.0-44.0); LYMPHOCYTE # 1.8 TH/MM3 (1.0-4.8); MEAN CELL VOLUME 85.6 FL (80.0-100.0); MEAN CORPUSCULAR HGB CONC 33.9 % (32.0-36.0); MONO % 12.2 % (0.0-8.0); NEUT % 39.9 % (16.0-70.0); PLATELET COUNT 189 TH/MM3 (150-450); RED BLOOD COUNT 4.95 MIL/MM3 (4.50-5.90); RED CELL DISTRIBUTION WIDTH 13.5 % (11.6-17.2); WHITE BLOOD COUNT 4.3 TH/MM3 (4.0-11.0)
[2016-10-05 00:32] LABS: ANION GAP 7 MEQ/L (5-15); AST (GOT) 20 U/L (15-37); BICARBONATE 23.9 MEQ/L (21.0-32.0); BLOOD UREA NITROGEN 13 MG/DL (7-18); CHLORIDE 108 MEQ/L (98-107); GLOMERULAR FILTRATION RATE 96 ML/MIN (>89); POTASSIUM 3.6 MEQ/L (3.5-5.1); SODIUM (NA) 139 MEQ/L (136-145)
[2016-10-05 00:33] LABS: ACETAMINOPHEN LESS THAN 2.0 MCG/ML (10.0-30.0); ALT (GPT) 33 U/L (12-78)
[2016-10-05 00:35] LABS: ALKALINE PHOSPHATASE 80 U/L (45-117); TOTAL BILIRUBIN ADULT 0.3 MG/DL (0.2-1.0)
[2016-10-05 03:00] VITALS: BP 135/82; PULSE 72; RESP 18; O2SAT 97
[2016-10-05 07:44] VITALS: BP 131/84; PULSE 79; RESP 18; TEMP 97.6; O2SAT 95
[2016-10-05 11:30] VITALS: BP 122/69; PULSE 64; RESP 18; O2SAT 96
[2016-10-05 11:31] VITALS: BP 122/69; PULSE 64; RESP 18; O2SAT 96
--- NOTE | 2016-10-05 14:13 | PD.PSY.CON ---
Provisional Diagnosis Admission Date Friedens I. Paranoid schizophrenia, impulse control disorder, intellectual disability Friedens II. Deferred Friedens III. Hepatitis B History of Present Illness Service Psychiatry Consult Requested By Primary Care Physician Unknown HPI The patient is a 31-year-old man from [facility], domiciled in a residential facility, single, unemployed, with a History of paranoid schizophrenia, intellectual dysfunction, poor impulse control disorder, history of aggressive behavior, multiple psychiatric hospitalizations, suicidal attempts, well known by this system, he has multiple ER visits with similar presentations, medical history of hepatitis B, who was brought to the hospital under Baumann act due to suicidal ideation. Patient states that he had an argument with staff because he wanted to smoke and they told him that he is not allowed to smoke anymore. He felt frustrated, he decided to run away from his residential facility. He was found I police and he told them that he wanted to kill himself. At the moment of this evaluation patient said that he is want to , but he doesn't want to come back to his residential facility "because they're mean to me and and they don't want me to smoke". Patient says that he prefers to if he has to go back. However, in the other hand he says that he misses his friends and he prefers to be there than in another place. The moment of this evaluation the patient reports good mood, he denies suicidal and homicidal ideation, he denies visual and auditory hallucinations. Patient has been friendly, interactive, a happy camper in the J pod. No agitation or aggressive behavior reported or observed. She is fully oriented 3. He denies the use of illicit drugs and alcohol. Review of Systems Constitutional: DENIES: Diaphoretic episodes, Fatigue, Fever, Weight gain, Weight loss, Chills, Dizziness, Change in appetite, Night Sweats Endocrine: DENIES: Heat/cold intolerance, Polydipsia, Polyuria, Polyphagia Eyes: DENIES: Blurred vision, Diplopia, Eye inflammation, Eye pain, Vision loss , Photosensitivity, Double Vision Ears, nose, mouth, throat: DENIES: Tinnitus, Hearing loss, Vertigo, Nasal discharge, Oral lesions, Throat pain, Hoarseness, Ear Pain, Running Nose, Epistaxis, Sinus Pain, Toothache, Odynophagia Respiratory: DENIES: Apneas, Cough, Snoring, Wheezing, Hemoptysis, Sputum production, Shortness of breath Cardiovascular: DENIES: Chest pain, Palpitations, Syncope, Dyspnea on Exertion , PND, Lower Extremity Edema, Orthopnea, Claudication Gastrointestinal: DENIES: Abdominal pain, Black stools, Bloody stools, Constipation, Diarrhea, Nausea, Vomiting, Difficulty Swallowing, Anorexia Genitourinary: DENIES: Sexual dysfunction, Urinary frequency, Urinary incontinence, Urgency, Hematuria, Dysuria, Nocturia, Penile Discharge, Testicular Pain, Testicular Swelling Musculoskeletal: DENIES: Joint pain, Muscle aches, Stiffness, Joint Swelling, Back pain, Neck pain Integumentary: DENIES: Abnormal pigmentation, Nail changes, Pruritus, Rash Hematologic/lymphatic: DENIES: Bruising, Lymphadenopathy Immunologic/allergic: DENIES: Eczema, Urticaria Neurologic: DENIES: Abnormal gait, Headache, Localized weakness, Paresthesias, Seizures, Speech Problems, Tremor, Poor Balance Past Family Social History Coded Allergies: No Known Allergies (Verified , 07/02/16) Reported Medications Lorazepam (Ativan)0.5 Mg Tab0.5 Mg PO Q6H PRN (ANXIETY AND/OR AGITATION) Ref 0 10/04/16 [Zoltaren] No Conflict Check1 % Topical 08/30/16 Triamcinolone (Bulk) (Triamcinolone)1 Pow Pow1 % Topical 3 Pm 08/30/16 Haloperidol Decanoate Inj (Haldol Decanoate Inj)100 Mg/Ml [id number] Mg IM Q28D #1 VIAL Ref 0 08/30/16 Fluticasone Nasal [place] 50 Mcg/Act Naspr50 Mcg EACH NARE BID #1 BOTTLE Ref 0 50 mcg/spray 07/02/16 Mirtazapine (Remeron)15 Mg Tab15 Mg PO HS #30 TAB Ref 0 07/02/16 Benztropine 0.5 Mg Tab0.5 Mg PO HS #30 TAB Ref 0 07/02/16 Haloperidol 10 Mg Tab10 Mg PO TID Ref 0 07/02/16 Physical Exam Vital Signs Vital Signs Date Time Temp Pulse Resp B/P Pulse Ox O2 Delivery O2 Flow Rate FiO2 10/05/16 11:31 64 18 122/69 96 Room Air 10/05/16 07:44 97.6 Lab Results Labs Laboratory Tests Test 10/04/16 23:40 White Blood Count 4.3 TH/MM3 Red Blood Count 4.95 MIL/MM3 Hemoglobin 14.4 GM/DL Hematocrit 42.4 % Mean Corpuscular Volume 85.6 FL Mean Corpuscular Hemoglobin 29.0 PG Mean Corpuscular Hemoglobin 33.9 % Concent Red Cell Distribution Width 13.5 % Platelet Count 189 TH/MM3 Mean Platelet Volume 8.8 FL Neutrophils (%) (Auto) 39.9 % Lymphocytes (%) (Auto) 42.5 % Monocytes (%) (Auto) 12.2 % Eosinophils (%) (Auto) 4.2 % Basophils (%) (Auto) 1.2 % Neutrophils # (Auto) 1.7 TH/MM3 Lymphocytes # (Auto) 1.8 TH/MM3 Monocytes # (Auto) 0.5 TH/MM3 Eosinophils # (Auto) 0.2 TH/MM3 Basophils # (Auto) 0.1 TH/MM3 CBC Comment DIFF FINAL Differential Comment Sodium Level 139 MEQ/L Potassium Level 3.6 MEQ/L Chloride Level 108 MEQ/L Carbon Dioxide Level 23.9 MEQ/L Anion Gap 7 MEQ/L Blood Urea Nitrogen 13 MG/DL Creatinine 0.91 MG/DL Estimat Glomerular Filtration 96 ML/MIN Rate Random Glucose 92 MG/DL Calcium Level 8.8 MG/DL Total Bilirubin 0.3 MG/DL Aspartate Amino Transf 20 U/L (AST/SGOT) Alanine Aminotransferase 33 U/L (ALT/SGPT) Alkaline Phosphatase 80 U/L Total Protein 6.7 GM/DL Albumin 3.5 GM/DL Salicylates Level LESS THAN 1.7 MG/DL Acetaminophen Level LESS THAN 2.0 MCG/ML Ethyl Alcohol Level LESS THAN 3 MG/DL Mental Status Examination Appearance [place] man, age appearing, [facility], good hygiene, calm and cooperative Speech: Unremarkable Orientation: x3 Memory: Unremarkable Thought Process: Logical Thought Content: Unremarkable Hallucination Type: None Attention and Concentration: Good Suicidal Ideation: No Previous Suicide Attempts: Yes Homicidal Ideation: No Previous Homicide Attempts: No Insight: Good Affect: Good Mood: Appropriate Motor Activity: Normal gait Assessment & Plan Problem List: (1) Adjustment disorder with disturbance of conduct Assessment & Plan: The moment of this evaluation the patient doesn't have any evidence of depressive symptoms, anxiety, psychosis or eduardo. Patient now denies suicidal or homicidal ideation, he denies visual and auditory hallucinations. No Agitation, no aggressive behavior, no hostility, no paranoia or delusions elicited in the psychiatric ER. Recent suicidal statement to the police seems to be part of acting out, and manipulative behavior in the context of argument and conflict with staff in his residential facility. He does not benefit of psychiatric admission at this moment. Patient is psychiatrically stable to be discharged back to his residential facility. Extensive psychoeducation, motivational support provided. Baumann act will be lifted. ICD Code: F43.24 Assessment & Plan Estimated LOS: days Shaggy García MD Oct 05, 2016 14:13
== END 2016-10-05 13:37 | disposition home or self-care (01) ==
LOC: NEPD 22:54 → NEPJ 10-05 13:37
DX: Z02.89 Encounter for other administrative examinations (principal); F43.24 Adjustment disorder with disturbance of conduct; F20.0 Paranoid schizophrenia; F63.9 Impulse disorder, unspecified; F79 Unspecified intellectual disabilities; K30 Functional dyspepsia; G47.30 Sleep apnea, unspecified; F17.200 Nicotine dependence, unspecified, uncomplicated; Z86.59 Personal history of other mental and behavioral disorders; Z87.39 Personal history of other diseases of the musculoskeletal system and connective tissue; Z87.09 Personal history of other diseases of the respiratory system
CPT/HCPCS: 80053; 80307; 85025; 99284

== ENCOUNTER 2016-10-10 22:06 | Emergency (ER) | payer OTHER ==
[~2016-10-10] VITALS: Ht 177.8 cm; Wt 90.0 kg
[~2016-10-10 22:06] MED LIST changes: +LORA-392 PO
[2016-10-10 22:34] VITALS: BP 146/87; PULSE 72; RESP 16; TEMP 97.6; O2SAT 99
[2016-10-10 22:38] VITALS: BP 146/87; PULSE 70; RESP 16; TEMP 97.6; O2SAT 98
[2016-10-10] MEDS ORDERED: ALUMINUM/MAGNESIUM/SIMETH 30 ML CUP PO STA (22:50)
[2016-10-10] MEDS ORDERED: ONDANSETRON ODT 4 MG TAB PO ONE (23:00)
--- NOTE | 2016-10-10 23:25 | PD ---
HPI Chief Complaint: Suicide Ideation/Attempt Time Seen by Provider: 22:50 Travel History International Travel<30 days: No Contact w/Intl Traveler<30days: No Traveled to known affect area: No History of Present Illness HPI Is a 31-year-old man who presents emergent arm brought in under a Baumann act. He reportedly left his fdc today because he got mad at somebody. He reports he was mad because it would not call the police. He then walked to a medical assistant float's office where he told them that he wanted to commit suicide. He was also brought to the emergency department under a Baumann act. History Past Medical History Narrative Medical Schizophrenia/bipolar Social History Alcohol Use: No Tobacco Use: Yes (2PPD ) Allergies-Medications (Allergen,Severity, Reaction): Coded Allergies: No Known Allergies (Verified , 10/10/16) Reported Meds & Prescriptions Reported Meds & Active Scripts Active Reported Ativan (Lorazepam) 0.5 Mg Tab 0.5 Mg PO Q6H PRN [Zoltaren] 1 % TOPICAL Triamcinolone (Triamcinolone (Bulk)) 1 Pow Pow 1 % TOPICAL 3 PM Haldol Decanoate Inj (Haloperidol Decanoate) 100 Mg/Ml Inj 100 Mg IM Q28D Fluticasone Nasal [place] 50 Mcg/Act Naspr 50 Mcg EACH NARE BID 50 mcg/spray Remeron (Mirtazapine) 15 Mg Tab 15 Mg PO HS Benztropine (Benztropine Mesylate) 0.5 Mg Tab 0.5 Mg PO HS Haloperidol 10 Mg Tab 10 Mg PO TID Review of Systems Except as stated in HPI: all other systems reviewed are Neg Physical Exam Narrative GENERAL: Well-appearing 31-year-old man, no acute distress. SKIN: Focused skin assessment warm/dry. HEAD: Atraumatic. Normocephalic. CARDIOVASCULAR: Regular rate and rhythm. No murmur appreciated. RESPIRATORY: No accessory muscle use. Clear to auscultation. Breath sounds equal bilaterally. GASTROINTESTINAL: Abdomen soft, non-tender, nondistended. Hepatic and splenic margins not palpable. MUSCULOSKELETAL: No obvious deformities. No clubbing. No cyanosis. No edema. NEUROLOGICAL: Awake and alert. No obvious cranial nerve deficits. Motor grossly within normal limits. Normal speech. PSYCHIATRIC: Flat affect, poor eye contact. Data Data Last Documented VS Vital Signs Date Time Temp Pulse Resp B/P Pulse Ox O2 Delivery O2 Flow Rate FiO2 10/10/16 22:38 97.6 70 16 146/87 98 Room Air Orders Complete Blood Count With Diff (10/10/16 22:50) Comprehensive Metabolic Panel (10/10/16 22:50) Psych Screen (10/10/16 22:50) Drug Screen, Random Urine (10/10/16 22:50) Ondansetron Odt (Zofran Odt) (10/10/16 23:00) Al-Mag Hy-Si 40-40-4 Mg/Ml Liq (Mag-Al P (10/10/16 22:50) Diet Regular Basic (10/11/16 Breakfast) MDM Medical Decision Making Medical Screen Exam Complete: Yes Emergency Medical Condition: Yes Differential Diagnosis Malingering, suicidality, psychosis, other Narrative Course Medical decision-making 28-year-old male presents emergency department for threatening suicide. He looks well. This appears to be somewhat behavioral. His only complaint is some upset stomach. He seems to be hungry. We'll go some Zofran and he is medically clear for psychiatric evaluation. Mental health screening discussed with the patient. Psychiatric screen ordered. Chandler Cisneros MD Oct 10, 2016 23:25
[2016-10-10 23:43] LABS: AUTOMATED NEUTROPHIL # 3.3 TH/MM3 (1.8-7.7); BASOPHIL # 0.1 TH/MM3 (0-0.2); BASOPHIL % 1.1 % (0.0-2.0); EOSINOPHIL # 0.2 TH/MM3 (0-0.4); HEMATOCRIT 45.3 % (39.0-51.0); HEMO FLAGS DIFF FINAL; LYMPHOCYTE # 2.4 TH/MM3 (1.0-4.8); MEAN CELL VOLUME 85.2 FL (80.0-100.0); MEAN CORPUSCULAR HEMOGLOBIN 28.9 PG (27.0-34.0); MEAN CORPUSCULAR HGB CONC 33.9 % (32.0-36.0); NEUT % 50.9 % (16.0-70.0); PLATELET COUNT 249 TH/MM3 (150-450); RED BLOOD COUNT 5.32 MIL/MM3 (4.50-5.90); RED CELL DISTRIBUTION WIDTH 12.9 % (11.6-17.2); WHITE BLOOD COUNT 6.5 TH/MM3 (4.0-11.0)
[2016-10-11 00:11] LABS: ALKALINE PHOSPHATASE 85 U/L (45-117); ALT (GPT) 38 U/L (12-78); TOTAL BILIRUBIN ADULT 0.2 MG/DL (0.2-1.0)
[2016-10-11 00:15] LABS: ANION GAP 6 MEQ/L (5-15); AST (GOT) 32 U/L (15-37); BLOOD UREA NITROGEN 14 MG/DL (7-18); CHLORIDE 107 MEQ/L (98-107); GLOMERULAR FILTRATION RATE 89 ML/MIN (>89); POTASSIUM 3.8 MEQ/L (3.5-5.1); SODIUM (NA) 139 MEQ/L (136-145)
[2016-10-11 02:04] VITALS: BP 118/60; PULSE 83; RESP 18
[2016-10-11 06:00] VITALS: BP 141/80; PULSE 69; RESP 18
[2016-10-11 10:23] LABS: AMPHETAMINE, URINE NEG (NEG); BARBITURATES, URINE NEG (NEG); COCAINE, URINE NEG (NEG)
--- NOTE | 2016-10-11 10:44 | PD ---
History of Present Illness Chief Complaint: Suicide Ideation/Attempt Time Seen by Provider: 10:35 Travel History International Travel<30 Days: No Contact w/Intl Traveler<30days: No Known affected area: No Legal Status Legal Status: Baumann Act Baumann Act Signed By: Curtis Camp History of Present Illness: History of Present Illness HPI The patient is a a 31-year-old male from [facility], with a history of paranoid schizophrenia, intellectual dysfunction, poor impulse control disorder, adjustment disorder who presents to the emergency department under a Baumann Act initiated by RICKY. It is alleged in the report that he left his halfway today because he got mad at somebody for not letting him smoke and then for not allowing him to call the police . He then walked to a skating rink manager's office where he told them that he wanted to commit suicide. Patient was monitored in secure environment and he presented no suicidal or homicidal ideation and no behavioral concerns. Review of EMR reveals multiple Ed visits for similar complaints as well as several psychiatric hospitalizations. There is no substance use. The patient s seen in J pod. He is alert, oriented and cooperative. He requests to be discharged back to his halfway. He states " I was upset for no reason and I run away". He then goes on to say " I do want to go back. He reports medication compliance, reports he is sleeping well and that he goes to work every day. He denies any suicidal or homicidal ideation, intent or plan. 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) Diabetes: No Diminished Hearing: No Endocrine: No Gastrointestinal Disorders: No Genitourinary: No Headaches: Yes (OCCASIONAL ) Hepatitis: Yes (PAST HX B OR C ) Hypertension: No Immune Disorder: No Implanted Vascular Access Dvce: No Musculoskeletal: Yes (L KNEE HURTS AT TIMES) Neurologic: No Psychiatric: Yes Reproductive: No Respiratory: Yes Immunizations Current: No (DENIES) Schizophrenia: Yes Sleep Apnea: Yes Past Surgical History Abdominal Surgery: No Cardiac Surgery: No Ear Surgery: No Endocrine Surgery: No Eye Surgery: No Genitourinary Surgery: No Neurologic Surgery: No Oral Surgery: No Thoracic Surgery: No Other Surgery: Yes Psychiatric History Psychiatric History Hx Psychiatric Treatment: Pt has multiple admissions to [facility] History of Inpatient Treatment: Yes Guns or firearms in home: No Social History Single. Resident of a halfway. Hx Alcohol Use: No Hx Tobacco Use: Yes (2PPD ) Hx Substance Use: Yes Substance Use Type: Nicotine/Cigarettes Hx of Substance Use Treatment: No Family Psychiatric History Negative Allergies-Medications (Allergen,Severity, Reaction): Coded Allergies: No Known Allergies (Verified , 10/10/16) Reported Meds & Prescriptions Reported Meds & Active Scripts Active Reported Ativan (Lorazepam) 0.5 Mg Tab 0.5 Mg PO Q6H PRN [Zoltaren] 1 % TOPICAL Triamcinolone (Triamcinolone (Bulk)) 1 Pow Pow 1 % TOPICAL 3 PM Haldol Decanoate Inj (Haloperidol Decanoate) 100 Mg/Ml Inj 100 Mg IM Q28D Fluticasone Nasal [place] 50 Mcg/Act Naspr 50 Mcg EACH NARE BID 50 mcg/spray Remeron (Mirtazapine) 15 Mg Tab 15 Mg PO HS Benztropine (Benztropine Mesylate) 0.5 Mg Tab 0.5 Mg PO HS Haloperidol 10 Mg Tab 10 Mg PO TID Review of Systems Except as stated in HPI: all other systems reviewed are Neg Exam Alert: Yes [place]: Person (ox4) Mood: Calm Affect: Appropriate Speech: Clear, Logical Eye Contact: Normal Memory Intact: Comment (No impairmetn) Hallucinations: Other (Negative) Delusions: No Suicidal: Ideation (denied any) Homicidal: Ideation (Denied any) Insight/Judgement Fair. Poor. [facility] Medical Decision Making Medical Record Reviewed: Yes Assessment/Plan The patient is a a 31-year-old male with a history of paranoid schizophrenia, intellectual dysfunction, poor impulse control disorder,adjustment disorder who presents to the emergency department under a Baumann Act initiated by RICKY. It is alleged in the report that he left his halfway today because he got mad at somebody for not letting him smoke and then for not allowing him to call the police . He then walked to a skating rink manager's office where he told them that he wanted to commit suicide. Patient presents no acute symptoms of depression , anxiety, psychosis or eduardo. Patient now denies suicidal or homicidal ideation, he denies visual and auditory hallucinations. No Agitation, no aggressive behavior, no hostility, no paranoia or delusions elicited in the psychiatric ER. Recent suicidal statements made to the police seem to be part of acting out, and manipulative behavior in the context of argument and conflict with staff in his residential facility. Patient does not present any criteria for inpatient psychiatric care or to remain under a BA. Patient is psychiatrically stable to be discharged back to his residential facility. Support provided. Baumann act will be lifted. Orders Complete Blood Count With Diff (10/10/16 22:50) Comprehensive Metabolic Panel (10/10/16 22:50) Psych Screen (10/10/16 22:50) Drug Screen, Random Urine (10/10/16 22:50) Ondansetron Odt (Zofran Odt) (10/10/16 23:00) Al-Mag Hy-Si 40-40-4 Mg/Ml Liq (Mag-Al P (10/10/16 22:50) Diet Regular Basic (10/11/16 Breakfast) Results Vital Signs Date Time Temp Pulse Resp B/P Pulse Ox O2 Delivery O2 Flow Rate FiO2 10/11/16 06:00 69 18 141/80 10/11/16 02:04 83 18 118/60 10/10/16 22:38 97.6 70 16 146/87 98 Room Air 10/10/16 22:38 22 10/10/16 22:34 97.6 72 16 146/87 99 Laboratory Tests Test 10/10/16 10/11/16 23:00 08:00 White Blood Count 6.5 Red Blood Count 5.32 Hemoglobin 15.4 Hematocrit 45.3 Mean Corpuscular Volume 85.2 Mean Corpuscular Hemoglobin 28.9 Mean Corpuscular Hemoglobin 33.9 Concent Red Cell Distribution Width 12.9 Platelet Count 249 Mean Platelet Volume 8.7 Neutrophils (%) (Auto) 50.9 Lymphocytes (%) (Auto) 37.0 Monocytes (%) (Auto) 8.0 Eosinophils (%) (Auto) 3.0 Basophils (%) (Auto) 1.1 Neutrophils # (Auto) 3.3 Lymphocytes # (Auto) 2.4 Monocytes # (Auto) 0.5 Eosinophils # (Auto) 0.2 Basophils # (Auto) 0.1 CBC Comment DIFF FINAL Differential Comment Sodium Level 139 Potassium Level 3.8 Chloride Level 107 Carbon Dioxide Level 26.0 Anion Gap 6 Blood Urea Nitrogen 14 Creatinine 0.97 Estimat Glomerular Filtration 89 Rate Random Glucose 117 Calcium Level 9.0 Total Bilirubin 0.2 Aspartate Amino Transf 32 (AST/SGOT) Alanine Aminotransferase 38 (ALT/SGPT) Alkaline Phosphatase 85 Total Protein 7.1 Albumin 3.7 Urine Opiates Screen NEG Urine Barbiturates Screen NEG Urine Amphetamines Screen NEG Urine Benzodiazepines Screen NEG Urine Cocaine Screen NEG Urine Cannabinoids Screen NEG Diagnosis Primary Impression: Adjustment disorder with disturbance of conduct Psychiatrically Cleared: Yes Med/ Other Pt Specific Info: No Change to Meds Disposition: 01 DISCHARGE HOME Condition: Stable Paula Moseley [facility] Oct 11, 2016 10:44
[2016-10-11 11:05] VITALS: BP 141/80
== END 2016-10-11 14:35 | disposition home or self-care (01) ==
LOC: NEPD 22:06 → NEPJ 10-11 14:35
DX: Z02.89 Encounter for other administrative examinations (principal); F43.24 Adjustment disorder with disturbance of conduct; F20.0 Paranoid schizophrenia; F17.200 Nicotine dependence, unspecified, uncomplicated; Z86.59 Personal history of other mental and behavioral disorders
CPT/HCPCS: 80053; 80307; 85025; 99283

== ENCOUNTER 2017-01-08 22:05 | Emergency (ER) | payer OTHER ==
[~2017-01-08] VITALS: Ht 177.8 cm; Wt 90.0 kg
[2017-01-08 22:13] VITALS: BP 141/91; PULSE 63; RESP 18; TEMP 97.8; O2SAT 98
--- NOTE | 2017-01-08 22:19 | PD ---
HPI Chief Complaint: Psychiatric Symptoms Time Seen by Provider: 22:16 Travel History International Travel<30 days: No Contact w/Intl Traveler<30days: No History of Present Illness HPI Patient 31-year-old male presents emergency department under Baumann act for evaluation of agitation and aggressive towards other members of his snf. Patient seen and examined by me is only complaint is of some back pain he states he thinks he strained his back a few days ago all lung. Denies any focalized weakness, denies any suicidal or homicidal ideation. Denies any other physical complaints denies any chest pain shortness breath abdominal pain nausea vomiting diarrhea constipation headaches or blurred vision. Symptoms are moderate, for many years, worsening over the past few days, associated signs symptoms as above. 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) Diabetes: No Diminished Hearing: No Endocrine: No Gastrointestinal Disorders: No Genitourinary: No Headaches: Yes (OCCASIONAL ) Hepatitis: Yes (PAST HX B OR C ) Hypertension: No Immune Disorder: No Implanted Vascular Access Dvce: No Musculoskeletal: Yes (L KNEE HURTS AT TIMES) Neurologic: No Psychiatric: Yes Reproductive: No Respiratory: Yes Immunizations Current: No (DENIES) Schizophrenia: Yes Sleep Apnea: Yes Past Surgical History Abdominal Surgery: No Cardiac Surgery: No Ear Surgery: No Endocrine Surgery: No Eye Surgery: No Genitourinary Surgery: No Neurologic Surgery: No Oral Surgery: No Thoracic Surgery: No Other Surgery: Yes Social History Alcohol Use: No Tobacco Use: Yes (2PPD ) Substance Use: Yes Allergies-Medications (Allergen,Severity, Reaction): Coded Allergies: No Known Allergies (Verified , 10/10/16) Reported Meds & Prescriptions Reported Meds & Active Scripts Active Reported Ativan (Lorazepam) 0.5 Mg Tab 0.5 Mg PO Q6H PRN [Zoltaren] 1 % TOPICAL Triamcinolone (Triamcinolone (Bulk)) 1 Pow Pow 1 % TOPICAL 3 PM Haldol Decanoate Inj (Haloperidol Decanoate) 100 Mg/Ml Inj 100 Mg IM Q28D Fluticasone Nasal [place] 50 Mcg/Act Naspr 50 Mcg EACH NARE BID 50 mcg/spray Remeron (Mirtazapine) 15 Mg Tab 15 Mg PO HS Benztropine (Benztropine Mesylate) 0.5 Mg Tab 0.5 Mg PO HS Haloperidol 10 Mg Tab 10 Mg PO TID Review of Systems Except as stated in HPI: all other systems reviewed are Neg Physical Exam Narrative GENERAL: Well-developed well-nourished no obvious distress. SKIN: Focused skin assessment warm/dry. No skin breakdown seen posteriorly. HEAD: Atraumatic. Normocephalic. EYES: Pupils equal and round. No scleral icterus. No injection or drainage. ENT: No nasal bleeding or discharge. Mucous membranes pink and moist. NECK: Trachea midline. No JVD. CARDIOVASCULAR: Regular rate and rhythm. No murmur appreciated. RESPIRATORY: No accessory muscle use. Clear to auscultation. Breath sounds equal bilaterally. GASTROINTESTINAL: Abdomen soft, non-tender, nondistended. Hepatic and splenic margins not palpable. MUSCULOSKELETAL: No obvious deformities. No clubbing. No cyanosis. No edema. No midline CT or L-spine tenderness, pelvis stable, NEUROLOGICAL: Awake and alert. No obvious cranial nerve deficits. Motor grossly within normal limits. Normal speech. 5 out of 5 strength in all 4 extremities, pulse motor and sensory intact distal in all 4 extremity's. PSYCHIATRIC: Fairly flat affect, denies suicidal or homicidal ideation. Data Data Last Documented VS Vital Signs Date Time Temp Pulse Resp B/P (MAP) Pulse Ox O2 Delivery O2 Flow Rate FiO2 01/08/17 22:13 97.8 63 18 141/91 (108) 98 Orders Orders Complete Blood Count With Diff (01/08/17 22:16) Comprehensive Metabolic Panel (01/08/17 22:16) Psych Screen (01/08/17 22:16) Drug Screen, Random Urine (01/08/17 22:16) Alcohol (Ethanol) (01/08/17 22:16) Salicylates (Aspirin) (01/08/17 22:16) Tylenol (Acetaminophen) (01/08/17 22:16) Acetamin-Hydrocod 325-5 Mg ([place] 5-325 (01/08/17 22:45) Labs Laboratory Tests Test 01/08/17 22:20 White Blood Count 6.0 TH/MM3 Red Blood Count 5.29 MIL/MM3 Hemoglobin 15.1 GM/DL Hematocrit 45.2 % Mean Corpuscular Volume 85.3 FL Mean Corpuscular Hemoglobin 28.6 PG Mean Corpuscular Hemoglobin Concent 33.5 % Red Cell Distribution Width 13.5 % Platelet Count 184 TH/MM3 Mean Platelet Volume 8.4 FL Neutrophils (%) (Auto) 49.3 % Lymphocytes (%) (Auto) 35.1 % Monocytes (%) (Auto) 11.5 % Eosinophils (%) (Auto) 3.0 % Basophils (%) (Auto) 1.1 % Neutrophils # (Auto) 3.0 TH/MM3 Lymphocytes # (Auto) 2.1 TH/MM3 Monocytes # (Auto) 0.7 TH/MM3 Eosinophils # (Auto) 0.2 TH/MM3 Basophils # (Auto) 0.1 TH/MM3 CBC Comment DIFF FINAL Differential Comment MDM Medical Decision Making Medical Screen Exam Complete: Yes Emergency Medical Condition: Yes Differential Diagnosis Back pain, muscle strain, behavioral disturbance. Narrative Course Patient roomed in emergency department, his only physical complaint is mid thoracic back pain, no indication for imaging at this time. Patient will be given pain medicine, basic labs been ordered according psychiatric protocol. Otherwise medically cleared for psychiatric evaluation. Diagnosis Primary Impression: Back pain Qualified Codes: M54.6 - Pain in thoracic spine Additional Impressions: Paranoid schizophrenia Adjustment disorder with disturbance of conduct Condition: Stable Moreno Ricardo MD Jan 08, 2017 22:19
[2017-01-08 22:38] LABS: BASOPHIL # 0.1 TH/MM3 (0-0.2); BASOPHIL % 1.1 % (0.0-2.0); EOSINOPHIL # 0.2 TH/MM3 (0-0.4); HEMATOCRIT 45.2 % (39.0-51.0); HEMO FLAGS DIFF FINAL; LYMPH % 35.1 % (9.0-44.0); LYMPHOCYTE # 2.1 TH/MM3 (1.0-4.8); MEAN CELL VOLUME 85.3 FL (80.0-100.0); MEAN CORPUSCULAR HEMOGLOBIN 28.6 PG (27.0-34.0); MEAN CORPUSCULAR HGB CONC 33.5 % (32.0-36.0); MONO % 11.5 % (0.0-8.0); NEUT % 49.3 % (16.0-70.0); PLATELET COUNT 184 TH/MM3 (150-450); RED BLOOD COUNT 5.29 MIL/MM3 (4.50-5.90); RED CELL DISTRIBUTION WIDTH 13.5 % (11.6-17.2)
[2017-01-08] MEDS ORDERED: ACETAMINOPHEN/HYDROcodone 325 MG/5 MG TAB PO ONE (22:45)
[2017-01-08 23:03] LABS: ALT (GPT) 127 U/L (12-78)
[2017-01-08 23:06] LABS: ALKALINE PHOSPHATASE 71 U/L (45-117); TOTAL BILIRUBIN ADULT 0.2 MG/DL (0.2-1.0)
[2017-01-08 23:07] LABS: ANION GAP 8 MEQ/L (5-15); AST (GOT) 53 U/L (15-37); BICARBONATE 24.9 MEQ/L (21.0-32.0); BLOOD UREA NITROGEN 19 MG/DL (7-18); CHLORIDE 107 MEQ/L (98-107); GLOMERULAR FILTRATION RATE 92 ML/MIN (>89); SODIUM (NA) 140 MEQ/L (136-145)
[2017-01-08 23:22] LABS: ACETAMINOPHEN LESS THAN 2.0 MCG/ML (10.0-30.0); ALCOHOL LESS THAN 3 MG/DL (0-5)
[2017-01-09 02:07] VITALS: RESP 16
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
== END 2017-01-09 14:54 | disposition home or self-care (01) ==
LOC: NEPJ 22:05
DX: M54.6 Pain in thoracic spine (principal); F20.0 Paranoid schizophrenia; F43.24 Adjustment disorder with disturbance of conduct; R45.1 Restlessness and agitation; Z87.891 Personal history of nicotine dependence
CPT/HCPCS: 80053; 80307; 85025; 99284

== ENCOUNTER 2017-02-28 19:44 | Inpatient (IN) | payer OTHER ==
[~2017-02-28] VITALS: Ht 180.3 cm; Wt 101.1 kg
[2017-02-28] MEDS ORDERED: CLOZ25TA2 PO (20:14)
[2017-02-28] MEDS ORDERED: DIVA500T3 PO (20:14)
[2017-02-28 20:16] VITALS: BP 160/88; PULSE 70; RESP 18; TEMP 98.1; O2SAT 97
[2017-02-28 20:30] LABS: AUTOMATED NEUTROPHIL # 3.2 TH/MM3 (1.8-7.7); BASOPHIL # 0.1 TH/MM3 (0-0.2); BASOPHIL % 1.1 % (0.0-2.0); EOSINOPHIL # 0.2 TH/MM3 (0-0.4); EOSINOPHIL % 2.5 % (0.0-4.0); HEMATOCRIT 46.8 % (39.0-51.0); HEMO FLAGS DIFF FINAL; LYMPH % 30.4 % (9.0-44.0); LYMPHOCYTE # 1.8 TH/MM3 (1.0-4.8); MEAN CELL VOLUME 87.1 FL (80.0-100.0); MEAN CORPUSCULAR HEMOGLOBIN 29.3 PG (27.0-34.0); MEAN CORPUSCULAR HGB CONC 33.7 % (32.0-36.0); MONO % 12.9 % (0.0-8.0); NEUT % 53.1 % (16.0-70.0); PLATELET COUNT 188 TH/MM3 (150-450); RED BLOOD COUNT 5.38 MIL/MM3 (4.50-5.90); RED CELL DISTRIBUTION WIDTH 13.5 % (11.6-17.2)
[2017-02-28 20:56] LABS: ANION GAP 6 MEQ/L (5-15); BICARBONATE 27.8 MEQ/L (21.0-32.0); BLOOD UREA NITROGEN 14 MG/DL (7-18); CHLORIDE 107 MEQ/L (98-107); GLOMERULAR FILTRATION RATE 76 ML/MIN (>89); SODIUM (NA) 141 MEQ/L (136-145)
[2017-02-28 20:57] LABS: ALCOHOL LESS THAN 3 MG/DL (0-5); POTASSIUM 4.4 MEQ/L (3.5-5.1)
--- NOTE | 2017-02-28 22:56 | PD ---
HPI Chief Complaint: Psychiatric Symptoms Time Seen by Provider: 20:38 Travel History International Travel<30 days: No Contact w/Intl Traveler<30days: No Traveled to known affect area: No History of Present Illness HPI 31-year-old male presents to emergency department under Baumann act from his [facility]. The patient had made suicidal statements. He is upset over his and passing away this past week. The patient has been compliant with his medications. Here in the ER he denies any true suicidal ideation. He denies any homicidal ideation. Patient does admit to auditory hallucinations at times telling him to hurt himself but he has no active plan. No visual hallucinations. Patient denies any medical complaints. He's been eating and drinking normally. No recent illness. PFSH Past Medical History ADHD: Yes Arthritis: No Asthma: No Autoimmune Disease: No Blood Disorders: No Bipolar Disorder: Yes Anxiety: Yes Depression: Yes Heart Rhythm Problems: No Cancer: No Cardiovascular Problems: No High Cholesterol: No Chemotherapy: No Chest Pain: No Congestive Heart Failure: No COPD: No Cerebrovascular Accident: No Developmental Delay: Yes Diabetes: No Diminished Hearing: No Endocrine: No Gastrointestinal Disorders: No GERD: No Glaucoma: No Genitourinary: No Headaches: Yes Hepatitis: Yes (unknown hx of B or C) Hiatal Hernia: No Heparin Induced Thrombocytopen: No Hypertension: No Immune Disorder: No Implanted Vascular Access Dvce: No Kidney Stones: No Musculoskeletal: Yes (L KNEE HURTS AT TIMES) Neurologic: No Psychiatric: Yes Reproductive: No Respiratory: Yes Immunizations Current: No Migraines: No Myocardial Infarction: No Radiation Therapy: No Renal Failure: No Schizophrenia: Yes Seizures: No Sickle Cell Disease: No Sleep Apnea: Yes Thyroid Disease: No Ulcer: No Tetanus Vaccination: Unknown Past Surgical History Surgical History: No Previous Surgery Abdominal Surgery: No AICD: No Arteriovenous Shunt: No Cardiac Surgery: No Ear Surgery: No Endocrine Surgery: No Eye Surgery: No Genitourinary Surgery: No Gynecologic Surgery: No Joint Replacement: No Neurologic Surgery: No Oral Surgery: No Pacemaker: No Thoracic Surgery: No Social History Alcohol Use: No Tobacco Use: Yes (2 ppd) Substance Use: No Allergies-Medications (Allergen,Severity, Reaction): Coded Allergies: No Known Allergies (Verified , 10/10/16) Reported Meds & Prescriptions Reported Meds & Active Scripts Active Reported Divalproex ER (Divalproex Sodium) 500 Mg Tab 500 Mg PO TID Clozapine 25 Mg Tab 25 Mg PO BID Ativan (Lorazepam) 0.5 Mg Tab 0.5 Mg PO Q6H PRN Haldol Decanoate Inj (Haloperidol Decanoate) 100 Mg/Ml Inj 100 Mg IM Q28D Fluticasone Nasal [place] 50 Mcg/Act Naspr 50 Mcg EACH NARE BID 50 mcg/spray Remeron (Mirtazapine) 15 Mg Tab 15 Mg PO HS Benztropine (Benztropine Mesylate) 0.5 Mg Tab 0.5 Mg PO BID Haloperidol 10 Mg Tab 12 Mg PO TID Review of Systems General / Constitutional: No: Fever Eyes: No: Visual changes HENT: No: Headaches Cardiovascular: No: Chest Pain or Discomfort Respiratory: No: Shortness of Breath Gastrointestinal: No: Abdominal Pain Genitourinary: No: Dysuria Musculoskeletal: No: Pain Skin: No Rash Neurologic: No: Weakness Psychiatric: Positive: Disorder of Thought, Mood Disorder, No: Anxiety, Depression, Suicidal Ideations, Substance Abuse, Homicidal Ideation Endocrine: No: Polydipsia Hematologic/Lymphatic: No: Easy Bruising Physical Exam Narrative GENERAL: Well-nourished, well-developed patient. SKIN: Warm and dry. HEAD: Normocephalic and atraumatic. EYES: No scleral icterus. No injection or drainage. ENT: No nasal drainage noted. Mucous membranes pink. Airway patent. NECK: Supple, trachea midline. Moves head freely without obvious discomfort. CARDIOVASCULAR: Regular rate and rhythm without murmurs, gallops, or rubs. RESPIRATORY: Breath sounds equal bilaterally. No accessory muscle use. GASTROINTESTINAL: Abdomen soft, non-tender, nondistended. EXTREMITIES: No cyanosis or edema. BACK: Nontender without obvious deformity. No CVA tenderness. NEURO: Patient is alert and oriented. no sensorimotor deficits. Nonfocal. Normal speech. PSYCH: No delusions. No active auditory or visual hallucinations. Data Data Last Documented VS Vital Signs Date Time Temp Pulse Resp B/P (MAP) Pulse Ox O2 Delivery O2 Flow Rate FiO2 02/28/17 20:16 98.1 70 18 160/88 (112) 97 Room Air Orders Orders Complete Blood Count With Diff (02/28/17 19:55) Basic Metabolic Panel (Bmp) (02/28/17 19:55) Psych Screen (02/28/17 19:55) Drug Screen, Random Urine (02/28/17 19:55) Alcohol (Ethanol) (02/28/17 19:55) Valproic Acid (Depakene) (02/28/17 20:15) Labs Laboratory Tests Test 02/28/17 20:08 White Blood Count 6.0 TH/MM3 Red Blood Count 5.38 MIL/MM3 Hemoglobin 15.8 GM/DL Hematocrit 46.8 % Mean Corpuscular Volume 87.1 FL Mean Corpuscular Hemoglobin 29.3 PG Mean Corpuscular Hemoglobin Concent 33.7 % Red Cell Distribution Width 13.5 % Platelet Count 188 TH/MM3 Mean Platelet Volume 8.4 FL Neutrophils (%) (Auto) 53.1 % Lymphocytes (%) (Auto) 30.4 % Monocytes (%) (Auto) 12.9 % Eosinophils (%) (Auto) 2.5 % Basophils (%) (Auto) 1.1 % Neutrophils # (Auto) 3.2 TH/MM3 Lymphocytes # (Auto) 1.8 TH/MM3 Monocytes # (Auto) 0.8 TH/MM3 Eosinophils # (Auto) 0.2 TH/MM3 Basophils # (Auto) 0.1 TH/MM3 CBC Comment DIFF FINAL Differential Comment Blood Urea Nitrogen 14 MG/DL Creatinine 1.11 MG/DL Random Glucose 68 MG/DL Calcium Level 8.7 MG/DL Sodium Level 141 MEQ/L Potassium Level 4.4 MEQ/L Chloride Level 107 MEQ/L Carbon Dioxide Level 27.8 MEQ/L Anion Gap 6 MEQ/L Estimat Glomerular Filtration Rate 76 ML/MIN Urine Opiates Screen NEG Urine Barbiturates Screen NEG Valproic Acid (Depakene) Level 104 MCG/ML Urine Amphetamines Screen NEG Urine Benzodiazepines Screen NEG Urine Cocaine Screen NEG Urine Cannabinoids Screen NEG Ethyl Alcohol Level LESS THAN 3 MG/DL MDM Medical Decision Making Medical Screen Exam Complete: Yes Emergency Medical Condition: Yes Medical Record Reviewed: Yes Interpretation(s) Laboratory Tests Test 02/28/17 20:08 White Blood Count 6.0 TH/MM3 Red Blood Count 5.38 MIL/MM3 Hemoglobin 15.8 GM/DL Hematocrit 46.8 % Mean Corpuscular Volume 87.1 FL Mean Corpuscular Hemoglobin 29.3 PG Mean Corpuscular Hemoglobin Concent 33.7 % Red Cell Distribution Width 13.5 % Platelet Count 188 TH/MM3 Mean Platelet Volume 8.4 FL Neutrophils (%) (Auto) 53.1 % Lymphocytes (%) (Auto) 30.4 % Monocytes (%) (Auto) 12.9 % Eosinophils (%) (Auto) 2.5 % Basophils (%) (Auto) 1.1 % Neutrophils # (Auto) 3.2 TH/MM3 Lymphocytes # (Auto) 1.8 TH/MM3 Monocytes # (Auto) 0.8 TH/MM3 Eosinophils # (Auto) 0.2 TH/MM3 Basophils # (Auto) 0.1 TH/MM3 CBC Comment DIFF FINAL Differential Comment Blood Urea Nitrogen 14 MG/DL Creatinine 1.11 MG/DL Random Glucose 68 MG/DL Calcium Level 8.7 MG/DL Sodium Level 141 MEQ/L Potassium Level 4.4 MEQ/L Chloride Level 107 MEQ/L Carbon Dioxide Level 27.8 MEQ/L Anion Gap 6 MEQ/L Estimat Glomerular Filtration Rate 76 ML/MIN Urine Opiates Screen NEG Urine Barbiturates Screen NEG Valproic Acid (Depakene) Level 104 MCG/ML Urine Amphetamines Screen NEG Urine Benzodiazepines Screen NEG Urine Cocaine Screen NEG Urine Cannabinoids Screen NEG Ethyl Alcohol Level LESS THAN 3 MG/DL CBC & BMP Diagram 02/28/17 20:08 Calcium Level 8.7 Differential Diagnosis MDM: High Differential diagnoses: Schizophrenia, schizoaffective disorder, bipolar, anxiety, depression, adjustment reaction, mood disorder NOS, ODD, depressive disorder NOS, dementia, dementia with agitation, psychosis NOS, substance induced mood disorder, DMDD, Asperger syndrome, infection,electrolyte abnormality, malingering. Narrative Course Mental health screening discussed with the patient. Psychiatric screen ordered. Patient has been medically cleared. His valproic acid level is noted to be 104. This is only minimally outside the normal range. This is medical clearance for psychiatric admission Diagnosis Primary Impression: Medical clearance for psychiatric admission Condition: Stable Marck Burris Feb 28, 2017 22:56
[2017-02-28] MEDS ORDERED: LORazepam 1 MG TAB PO PRN (23:15)
[2017-02-28] MEDS ORDERED: diphenhydrAMINE HCL 50 MG/ML VIAL IM PRN (23:15)
[2017-02-28] MEDS ORDERED: diphenhydrAMINE HCL 50 MG CAP PO PRN (23:15)
[2017-02-28] MEDS ORDERED: diphenhydrAMINE HCL 50 MG CAP - HS PRN PO (23:15)
[2017-02-28] MEDS ORDERED: LORazepam 2 MG/ML VIAL IM PRN (23:15)
[2017-02-28] MEDS ORDERED: PILL SPLITTER OTHER PRN (23:15)
[2017-02-28] MEDS ORDERED: MAGNESIUM HYDROXIDE SUSP 30 ML CUP PO PRN (23:15)
[2017-02-28] MEDS ORDERED: ACETAMINOPHEN 325 MG TAB PO PRN (23:15)
[2017-02-28] MEDS ORDERED: BENZTROPINE MESYLATE 1 MG TAB PO PRN (23:15)
[2017-02-28] MEDS ORDERED: ALUMINUM/MAGNESIUM/SIMETH 30 ML CUP PO PRN (23:15)
[2017-02-28] MEDS ORDERED: diphenhydrAMINE HCL 50 MG/ML VIAL - HS PRN IM (23:15)
[2017-02-28] MEDS ORDERED: traZODone HCL 50 MG TAB PO PRN (23:15)
[2017-02-28] MEDS ORDERED: hydrOXYzine HCL 50 MG TAB PO PRN (23:15)
[2017-02-28] MEDS ORDERED: BENZTROPINE MESYLATE 2 MG/2 ML VIAL IM PRN (23:15)
[2017-02-28 23:35] VITALS: BP 170/97; PULSE 69; RESP 18; TEMP 97.3; O2SAT 99
[2017-03-01 05:41] VITALS: BP 145/84; PULSE 84; RESP 18; TEMP 98; O2SAT 99
--- NOTE | 2017-03-01 08:39 | HHI.HP ---
Provisional Diagnosis Admission Date Feb 28, 2017 at 22:55 [place] I. 1. Adjustment disorder with depressed mood 2. History of schizophrenia [place] II. Deferred Certification of Person's Competence To Provide Express and Informed Consent I have personally examined Konstantin Peterson , a person being served at [facility] on, Mar 01, 2017 08:39. Express and informed consent means consent voluntarily given in writing, by a competent person, after sufficient explanation and disclosure of the subject matter involved to enable the person to make a knowing and willful decision without any element of force, fraud, deceit, duress, or other form of constraint or coercion. This person is 18 years of age or older, is not now known to be incompetent to consent to treatment with a guardian advocate, and does not have a health care surrogate or proxy currently making medical treatment decisions. I have found this person to be one of the following: [x] Competent to provide express and informed consent, as defined above, for voluntary admission to this facility and is competent to provide express and informed consent for treatment. He/she has the consistent capacity to make well reasoned, willful, and knowing decisions concerning his or her medical or mental health treatment. The person fully and consistently understands the purpose of the admission for examination/placement and is fully capable of personally exercising all rights assured [place] Incompetent to provide express and informed consent to voluntary admission, and this is incompetent to provide express and informed consent to treatment. The person must be transferred to involuntary status and a petition for a guardian advocate filed with the Circuit Court. [] Refusing to provide express and informed consent to voluntary admission but is competent to provide express and informed consent for treatment. The person must be discharged or transferred to involuntary status. Form shall be completed within 24 hours of a person's arrival at the receiving facility and filed in the clinical record of each person: 1. Admitted on a voluntary basis 2. Permitted to provide express and informed consent to his/her own treatment 3. Allowed to transfer from involuntary to voluntary status 4. Prior to permitting a person to consent to his or her own treatment after having been previously found incompetent to consent to treatment. History of Present Illness Capacity: Has Capacity Psych Chief Complaint: SI HPI Mr. Peterson is a 31-year-old male with a history of schizophrenia who presented initially under a Baumann act by law enforcement alleging that the patient was depressed because a relative of his . He allegedly verbalized suicidal ideation. Reviewing the electronic medical record, I note that the patient was admitted psychiatrically most recently under Dr. Verde in 2012. Patient seen and examined with nurse. Chart reviewed. Case discussed with nursing staff. On my examination today, the patient relates that his grandmother 2 weeks ago. He says "I just hurt my grandmother . My parents didn't want to tell me. I found out." The patient is somewhat sedated on exam, and he complains about feeling overmedicated generally. He denies suicidal or homicidal ideation, intent or plan at this time. He does feel understandably depressed about his grandmother's passing. He denies any audiovisual hallucinations. Mood is reportedly "pretty good" and I could not elicit much in the way of depressive or hypomanic/manic symptomatology in this patient at this time. He does report feeling somewhat overmedicated. Patient did receive some Ativan overnight but says that he has the sensation even when he is only on his outpatient medications. He would like to remain on the inpatient unit for the purpose of adjusting medications to lessen sedation. Remainder of the psychiatric ROS is negative. No physical complaints. Past psychiatric history: The patient reports a history of bipolar disorder. Chart history of schizophrenia/schizoaffective disorder. He follows at [facility]. He says that he was psychiatrically hospitalized most recently at [facility] 2 months ago "for the same thing." He denies any history of suicide attempts. He denies any history of violent behavior. Placed call over to [facility] to obtain outpatient med list: Depakote 500mg/500mg/1000mg Remeron 30mg qHS Haldol 12mg TID Cogentin 0.5mg BID Haldol Decanoate 100mg q4wks (next due 03/05) Review of Systems Except as stated in HPI: all other systems reviewed are Neg Past Psych History Psychological trauma history Recent loss of grandmother is traumatic. No other reported history of trauma. Violence risk - others (6 mos) Lower imminent risk. Denies HI. Denies history of violence. No evidence of active psychotic process or other mental illness that might confer risk for violence. Violence risk - self (6 mos) Indeterminate. Suspect lower risk though. Denies suicidal ideation. Denies history of suicide attempts. He does report that his mother has attempted suicide in the past. Patient is somewhat distressed because of grandmother's passing but otherwise no active mental illness process that might confer risk for suicide. Substance Abuse History Drugs/Alcohol past 12 months Patient denies any abuse of drugs or alcohol. Past Family Social History Coded Allergies: No Known Allergies (Verified Allergy, Unknown, 02/28/17) Past Medical History Patient denies any significant medical history Reported Medications Divalproex ER (Divalproex ER) 500 Mg Tab, 500 MG PO TID for Control Seizures, # 30 TAB 0 Refills 02/28/17 Clozapine (Clozapine) 25 Mg Tab, 25 MG PO BID for Schizophrenia, TAB 0 Refills 02/28/17 Lorazepam (Ativan) 0.5 Mg Tab, 0.5 MG PO Q6H Y for ANXIETY AND/OR AGITATION, TAB 0 Refills 10/04/16 Haloperidol Decanoate Inj (Haldol Decanoate Inj) 100 Mg/Ml Inj, 100 MG IM Q28D for Schizophrenia, #1 VIAL 0 Refills 08/30/16 Fluticasone Nasal [place] (Fluticasone Nasal [place]) 50 Mcg/Act Naspr, 50 MCG EACH NARE BID for Allergy Management, #1 BOTTLE 0 Refills 50 mcg/spray 07/02/16 Mirtazapine (Remeron) 15 Mg Tab, 15 MG PO HS for Depression Control, #30 TAB 0 Refills 07/02/16 Benztropine (Benztropine) 0.5 Mg Tab, 0.5 MG PO BID, #30 TAB 0 Refills 07/02/16 Haloperidol (Haloperidol) 10 Mg Tab, 12 MG PO TID, TAB 0 Refills 07/02/16 Discontinued Reported Medications [Zoltaren] No Conflict Check, 1 % TOPICAL for KNEE ARTHRITIS 08/30/16 Triamcinolone (Bulk) (Triamcinolone) 1 Pow Pow, 1 % TOPICAL 3 PM for Dry Skin 08/30/16 Current Medications Medications (Trade) Dose Ordered Sig/Bacilio Route Start Time Stop Time Status Last Admin (Ativan) 1 mg Q6H PRN PO 02/28/17 23:15 03/01/17 00:31 (Ativan Inj) 1 mg Q6H PRN IM 02/28/17 23:15 (Atarax) 50 mg Q6H PRN PO 02/28/17 23:15 (Benadryl) 50 mg Q6H PRN PO 02/28/17 23:15 (Benadryl Inj) 50 mg Q6H PRN IM 02/28/17 23:15 (Cogentin) 1 mg Q12H PRN PO 02/28/17 23:15 (Cogentin Inj) 1 mg Q12H PRN IM 02/28/17 23:15 (Benadryl) 50 mg HS PRN PO 02/28/17 23:15 (Benadryl Inj) 50 mg HS PRN IM 02/28/17 23:15 (Desyrel) 50 mg HS PRN PO 02/28/17 23:15 (Tylenol) 650 mg Q4H PRN PO 02/28/17 23:15 (Milk Of Magnesia Liq) 30 ml DAILY PRN PO 02/28/17 23:15 (Mag-Al Plus Susp Liq) 30 ml Q6H PRN PO 02/28/17 23:15 (Habitrol 7 Mg Patch.24 Hr) 1 patch DAILY T-DERMAL 03/01/17 09:00 (Habitrol 14 Mg Patch.24 Hr) 1 patch DAILY T-DERMAL 03/01/17 09:00 (Habitrol 21 Mg Patch.24 Hr) 1 patch DAILY T-DERMAL 03/01/17 09:00 Miscellaneous Information 1 HS T-DERMAL 03/01/17 21:00 (Haldol) 10 mg BID PO 03/01/17 09:00 (Cogentin) 0.5 mg BID PO 03/01/17 09:00 (Pill Splitter) 1 ea UNSCH PRN OTHER 02/28/17 23:15 (Remeron) 15 mg HS PO 03/01/17 21:00 (Flu (Quadrivalent) Vaccine Inj) 0.5 ml ONCE ONCE IM 03/02/17 10:00 03/02/17 10:01 Family Psych History Patient reports that his brother has serious mental illness. His mother reportedly attempted suicide per patient. Social History Patient lives at a [facility]. He is single with no children. He did not graduate high school. He collects disability. He denies any access to guns or firearms. Patient's Strengths (min. 2) In a monitored setting. Verbally fluent. Physical Exam Physical examination was completed by ED provider. On my examination today, the patient appears to be in no acute physical distress. No motor abnormalities noted. Labs and vitals reviewed: Vital Signs Vital Signs Date Time Temp Pulse Resp B/P (MAP) Pulse Ox O2 Delivery O2 Flow Rate FiO2 03/01/17 05:41 98.0 84 18 145/84 (104) 99 02/28/17 20:16 Room Air Lab Results Item Value Date Time White Blood Count 6.0 TH/MM3 02/28/172007 Hemoglobin 15.8 GM/DL 02/28/172007 Platelet Count 188 TH/MM3 02/28/172007 Sodium Level 141 MEQ/L 02/28/172007 Potassium Level 4.4 MEQ/L 02/28/172007 Chloride Level 107 MEQ/L 02/28/172007 Carbon Dioxide Level 27.8 MEQ/L 02/28/172007 Creatinine 1.11 MG/DL 02/28/172007 Blood Urea Nitrogen 14 MG/DL 02/28/172007 Estimat Glomerular Filtration Rate 76 ML/MIN L 02/28/172007 Urine Opiates Screen NEG 02/28/17 2008 Urine Barbiturates Screen NEG 02/28/17 2008 Urine Amphetamines Screen NEG 02/28/172007 Urine Benzodiazepines Screen NEG 02/28/172007 Urine Cocaine Screen NEG 02/28/172007 Urine Cannabinoids Screen NEG 02/28/172007 Ethyl Alcohol Level LESS THAN 3 MG/DL 02/28/172007 Valproic Acid (Depakene) Level 104 MCG/ML *H 02/28/172007 Labs reviewed. Decreased GFR noted. Elevated Depakote level noted. Mental Status Examination Appearance: Appropriate Consciousness: Other (somewhat sedated but arousable) Orientation: x4 Motor Activity: Other (no hand tremor, no cogwheeling, no other motor abnormalities noted) Speech: Slow Language: Adequate Fund of Knowledge: Adequate Attention and Concentration: Adequate Memory: Unremarkable Mood: Other ("pretty good") Affect: Blunt Thought Process & Associations: Intact, Logical, Linear Thought Content: Appropriate Hallucination Type: None Delusion Type: None Suicidal Ideation: No Suicidal Plan: No Suicidal Intention: No Homicidal Ideation: No Homicidal Plan: No Homicidal Intention: No Insight: Fair Judgment: Adequate (fair) Assessment & Plan Problem List: (1) Adjustment disorder with depressed mood ICD Codes: F43.21 - Adjustment disorder with depressed mood (2) Schizophrenia ICD Codes: F20.9 - Schizophrenia, unspecified Status: Acute Assessment & Plan 31-year-old male with psychiatric history as detailed above who presents under a Baumann act. On my examination today, the patient denies suicidal ideation that was alleged in the Baumann act. He does admit to being somewhat distressed because of his grandmother's recent passing. He also complains of feeling excessively sedated from medications, even on an outpatient basis. I will plan to retain the patient on the inpatient unit for observation and also to make a medication adjustment. Admit inpatient. Voluntary status. All of patient's medications have sedating potential. As he presented with dysphoria, I think tapering his mood stabilizer or antidepressant is inadvisable. He is not presently psychotic, and so I will gently taper antipsychotic to 10mg TID and monitor closely for emergence of any psychotic symptoms. VPA level obtained in the ED may have been inaccurate due to timing issues; I will also check a pre-dose Depakote level to see if elevated Depakote level may be contributing to sedation. Also check ammonia level. Recheck BMP in morning. Check EKG for QTc. Low-dose Ativan as needed for anxiety, Cogentin as needed for EPS. Vitals every shift. Counselor to see and obtain collateral. Disposition planning. Estimated length of stay: 3-5 days. Discharge Planning Pending stabilization. Request HC Surrog/Guard Advoc?: No Stephen Ivy MD Mar 01, 2017 08:39
[2017-03-01] MEDS ORDERED: HALOPERIDOL 10 MG TAB PO SCH (09:00)
[2017-03-01] MEDS ORDERED: NICOTINE 7 MG/24 HR PATCH T-DERMAL SCH (09:00)
[2017-03-01] MEDS: BENZTROPINE MESYLATE 1 MG TAB PO SCH ×2 (09:00→20:16)
[2017-03-01] MEDS ORDERED: NICOTINE 14 MG/24 HR PATCH T-DERMAL SCH (09:00)
[2017-03-01] MEDS: NICOTINE 21 MG/24 HR PATCH T-DERMAL SCH (09:04)
[2017-03-01] MEDS ORDERED: BENZTROPINE MESYLATE 2 MG/2 ML VIAL IM PRN (12:00)
[2017-03-01] MEDS: HALOPERIDOL 10 MG TAB PO SCH ×2 (13:09→17:57)
[2017-03-01] MEDS: DIVALPROEX DR 500 MG TABEC PO SCH (15:00)
[2017-03-01] MEDS ORDERED: LORazepam 2 MG/ML VIAL IM PRN (17:15)
[2017-03-01] MEDS ORDERED: LORazepam 1 MG TAB PO PRN (17:15)
[2017-03-01 18:48] VITALS: BP 145/80; PULSE 68; RESP 18; O2SAT 97
[2017-03-01] MEDS: MIRTAZAPINE 15 MG TAB PO SCH (20:15)
[2017-03-01] MEDS: DIVALPROEX SODIUM DELAYED RELEASE 250 MG TAB PO SCH (20:16)
[2017-03-01] MEDS ORDERED: MIRTAZAPINE 15 MG TAB PO SCH (21:00)
[2017-03-01] MEDS: REMOVE OLD NICOTINE PATCH T-DERMAL SCH (21:00)
[2017-03-02 05:55] VITALS: BP 142/90; PULSE 62; RESP 18; TEMP 98.1
[2017-03-02] MEDS: HALOPERIDOL 10 MG TAB PO SCH ×3 (08:00→17:17)
[2017-03-02] MEDS: BENZTROPINE MESYLATE 1 MG TAB PO SCH ×2 (08:00→22:01)
[2017-03-02] MEDS: DIVALPROEX DR 500 MG TABEC PO SCH ×2 (08:00→15:15)
[2017-03-02] MEDS: NICOTINE 21 MG/24 HR PATCH T-DERMAL SCH ×2 (08:02→19:58)
[2017-03-02] MEDS ORDERED: INFLUENZA VIRUS VACCINE (QUADRIVALENT) 0.5 ML SYR IM ONE (10:00)
--- NOTE | 2017-03-02 12:19 | EKG ---
Date Performed: 03/01/2017 Time Performed: 13:16:38 PTAGE: 31 years EKG: Sinus rhythm RIGHT AXIS DEVIATION ABNORMAL ECG Compared to prior tracing no significant change PREVIOUS TRACING : 03/30/2012 14.18 DOCTOR: Quintin Andersen Interpretating Date/Time 03/02/2017 12:18:44
[2017-03-02 12:50] LABS: ANION GAP 7 MEQ/L (5-15); AST (GOT) 83 U/L (15-37); BICARBONATE 27.5 MEQ/L (21.0-32.0); BLOOD UREA NITROGEN 13 MG/DL (7-18); CHLORIDE 104 MEQ/L (98-107); GLOMERULAR FILTRATION RATE 94 ML/MIN (>89); POTASSIUM 4.1 MEQ/L (3.5-5.1); SODIUM (NA) 138 MEQ/L (136-145)
[2017-03-02 12:59] LABS: ALKALINE PHOSPHATASE 85 U/L (45-117); ALT (GPT) 112 U/L (12-78); FREE T4 0.75 NG/DL (0.76-1.46); HDL CHOLESTEROL 46.8 MG/DL (40.0-60.0); LDL CHOLESTEROL 49 MG/DL (0-99); TOTAL BILIRUBIN ADULT 0.3 MG/DL (0.2-1.0)
[2017-03-02 14:04] LABS: HEMOGLOBIN A1a 1.1 %; HEMOGLOBIN A1b 1.7 %; HEMOGLOBIN Ao 86.2 %; HEMOGLOBIN LA1C 1.8 %; HEMOGLOBIN P3 3.3 %
--- NOTE | 2017-03-02 15:22 | HHI.PYPN ---
Subjective Chief Complaint: SI Remarks Patient seen and examined with nurse. Chart reviewed. Case discussed in treatment team. On my examination today, I find the patient sitting in the day area. He is not really socializing but seems at ease in this environment. He is calm and cooperative with interview. Back in his room, he tells me that he does feel somewhat anxious in crowds but that this is long-standing and has been present since childhood. He denies any suicidal or homicidal ideation. Denies any audiovisual hallucinations. No paranoia or other delusional material elicited. Denies side effects from medications. He is less tired following medication adjustment. No physical complaints. He is aware that he needs to receive Haldol Decanoate this Wednesday. Review of Systems Except as stated in HPI: all other systems reviewed are Neg Mental Status Examination Appearance: Appropriate Consciousness: Alert Orientation: x4 Motor Activity: Other (no motoric abnormalities noted) Speech: Unremarkable Language: Adequate Fund of Knowledge: Adequate Attention and Concentration: Adequate Memory: Unremarkable Mood: Appropriate Affect: Blunt (mildly blunted) Thought Process & Associations: Intact, Logical, Linear Thought Content: Appropriate Hallucination Type: None Delusion Type: None Suicidal Ideation: No Suicidal Plan: No Suicidal Intention: No Homicidal Ideation: No Homicidal Plan: No Homicidal Intention: No Insight: Fair Judgment: Adequate (fair) Results Labs Test 03/02/17 11:43 Blood Urea Nitrogen 13 MG/DL Creatinine 0.93 MG/DL Random Glucose 96 MG/DL Total Protein 8.0 GM/DL Albumin 4.0 GM/DL Calcium Level 9.3 MG/DL Alkaline Phosphatase 85 U/L Aspartate Amino Transf (AST/SGOT) 83 U/L Alanine Aminotransferase (ALT/SGPT) 112 U/L Total Bilirubin 0.3 MG/DL Sodium Level 138 MEQ/L Potassium Level 4.1 MEQ/L Chloride Level 104 MEQ/L Carbon Dioxide Level 27.5 MEQ/L Anion Gap 7 MEQ/L Estimat Glomerular Filtration Rate 94 ML/MIN Hemoglobin A1c 5.1 % Ammonia 78 MCMOL/L Triglycerides Level 287 MG/DL Cholesterol Level 153 MG/DL LDL Cholesterol 49 MG/DL HDL Cholesterol 46.8 MG/DL Cholesterol/HDL Ratio 3.26 RATIO Free Thyroxine 0.75 NG/DL Thyroid Stimulating Hormone 3rd Gen 1.780 uIU/ML Valproic Acid (Depakene) Level 74 MCG/ML Labs reviewed. Depakote level within the therapeutic range. Ammonia level slightly elevated but no signs of encephalopathy. TSH within normal limits and free T4 just slightly below lower limit of normal inpatient with no reported symptoms of hypothyroidism. Vitals/IOs Vital Signs Date Time Temp Pulse Resp B/P (MAP) Pulse Ox O2 Delivery O2 Flow Rate FiO2 03/02/17 05:55 98.1 62 18 142/90 (107) 03/01/17 18:48 97 02/28/17 20:16 Room Air Assessment & Plan Problem List: (1) Adjustment disorder with depressed mood ICD Codes: F43.21 - Adjustment disorder with depressed mood (2) Schizophrenia ICD Codes: F20.9 - Schizophrenia, unspecified Status: Acute Assessment & Plan Complaints of sedation considerably improved with medication adjustment. Continue current psychotropics as ordered. I will add Carnitor for management of hyperammonemia with plans for follow-up ammonia level on outpatient basis. Continue to monitor on an inpatient unit. Continue other medications and care as ordered. Justification for Cont. Inpt. Monitoring for impairment in safety, none noted. Discharge Planning Anticipate discharge within the next day or 2 back to facility with outpatient follow-up. Case discussed with counselor. Request HC Surrog/Guard Advoc?: No Stephen Ivy MD Mar 02, 2017 15:22
[2017-03-02 18:00] VITALS: BP 162/83; PULSE 72; RESP 18; TEMP 98.4; O2SAT 97
[2017-03-02] MEDS: levOCARNitine 10% ORAL SOLN 118 ML BTL PO SCH (18:07)
[2017-03-02] MEDS: REMOVE OLD NICOTINE PATCH T-DERMAL SCH (21:00)
[2017-03-02] MEDS: MIRTAZAPINE 15 MG TAB PO SCH (22:01)
[2017-03-02] MEDS: DIVALPROEX SODIUM DELAYED RELEASE 250 MG TAB PO SCH (22:02)
[2017-03-03 06:20] VITALS: BP 129/85; PULSE 68; RESP 17; TEMP 98.4; O2SAT 97
[2017-03-03 08:14] LABS: INDIRECT BILIRUBIN 0.3 MG/DL (0.0-0.8); TOTAL BILIRUBIN ADULT 0.4 MG/DL (0.2-1.0)
[2017-03-03] MEDS: BENZTROPINE MESYLATE 1 MG TAB PO SCH (08:40)
[2017-03-03] MEDS: HALOPERIDOL 10 MG TAB PO SCH (08:40)
[2017-03-03] MEDS: DIVALPROEX DR 500 MG TABEC PO SCH (08:41)
[2017-03-03] MEDS: levOCARNitine 10% ORAL SOLN 118 ML BTL PO SCH (08:41)
[2017-03-03] MEDS ORDERED: LEVO10%S PO (11:14)
[2017-03-03] MEDS ORDERED: DIVA500T PO (11:14)
[2017-03-03] MEDS ORDERED: DIVA250T PO (11:14)
[2017-03-03] MEDS ORDERED: BENZ0.5T PO (11:14)
[2017-03-03] MEDS ORDERED: MIRTA15 PO (11:14)
[2017-03-03] MEDS ORDERED: HALO10TA PO (11:14)
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
== END 2017-03-03 13:24 | DRG 881 ==
LOC: NEPJ 19:44 → NEDA 22:55 → H270 23:35 → H260 03-02 08:25
PROVIDERS: ADMIT Psychiatry & Neurology Psychiatry; ATTEND Psychiatry & Neurology Psychiatry
DX: F43.21 Adjustment disorder with depressed mood (principal); E72.20 Disorder of urea cycle metabolism, unspecified; F20.9 Schizophrenia, unspecified; Z81.8 Family history of other mental and behavioral disorders; F17.210 Nicotine dependence, cigarettes, uncomplicated; R74.0 Nonspecific elevation of levels of transaminase and lactic acid dehydrogenase [LDH]; Z86.19 Personal history of other infectious and parasitic diseases
CPT/HCPCS: 80048; 80053; 80061; 80074; 80076; 80164; 80307; 82140; 83036; 84439; 84443; 85025; 93005; 99285

== ENCOUNTER 2017-03-31 21:39 | Inpatient (IN) | payer OTHER ==
[~2017-03-31] VITALS: Ht 177.8 cm; Wt 99.3 kg
[~2017-03-31 21:39] MED LIST changes: +DIVA250T PO; +DIVA500T PO; +LEVO10%S PO; +MIRTA15 PO; -REME15TA PO; -TRIAPOW6 TOPICAL; -ZOLTAREN TOPICAL
[2017-03-31 21:49] VITALS: BP 141/83; PULSE 71; RESP 18; TEMP 98.2; O2SAT 97
[2017-03-31 22:50] LABS: AUTOMATED NEUTROPHIL # 2.4 TH/MM3 (1.8-7.7); BASOPHIL % 0.8 % (0.0-2.0); EOSINOPHIL # 0.2 TH/MM3 (0-0.4); EOSINOPHIL % 3.5 % (0.0-4.0); HEMATOCRIT 40.7 % (39.0-51.0); HEMOGLOBIN 14.2 GM/DL (13.0-17.0); LYMPH % 38.2 % (9.0-44.0); MEAN CELL VOLUME 86.4 FL (80.0-100.0); MEAN CORPUSCULAR HEMOGLOBIN 30.2 PG (27.0-34.0); MEAN PLATELET VOLUME 8.9 FL (7.0-11.0); MONO % 10.5 % (0.0-8.0); MONOCYTE # 0.5 TH/MM3 (0-0.9); PLATELET COUNT 193 TH/MM3 (150-450); RED BLOOD COUNT 4.71 MIL/MM3 (4.50-5.90); RED CELL DISTRIBUTION WIDTH 13.8 % (11.6-17.2); WHITE BLOOD COUNT 5.2 TH/MM3 (4.0-11.0)
[2017-03-31 23:08] LABS: ALT (GPT) 128 U/L (12-78)
[2017-03-31 23:11] LABS: ALKALINE PHOSPHATASE 74 U/L (45-117); TOTAL BILIRUBIN ADULT 0.3 MG/DL (0.2-1.0); TOTAL PROTEIN 6.7 GM/DL (6.4-8.2)
[2017-03-31 23:14] LABS: ALBUMIN 3.3 GM/DL (3.4-5.0); AST (GOT) 66 U/L (15-37); BICARBONATE 26.8 MEQ/L (21.0-32.0); BLOOD UREA NITROGEN 12 MG/DL (7-18); CALCIUM 8.4 MG/DL (8.5-10.1); CHLORIDE 104 MEQ/L (98-107); CREATININE 1.05 MG/DL (0.60-1.30); GLOMERULAR FILTRATION RATE 81 ML/MIN (>89); GLUCOSE,RANDOM 147 MG/DL (74-106); SODIUM (NA) 138 MEQ/L (136-145)
--- NOTE | 2017-04-01 00:01 | PD ---
HPI Chief Complaint: Psychiatric Symptoms Time Seen by Provider: 23:24 Travel History International Travel<30 days: No Contact w/Intl Traveler<30days: No Traveled to known affect area: No History of Present Illness HPI 31-year-old male known to the medical staff and myself for multiple ER visits for mental health returns to the ER under a Baumann act. According the Baumann act the patient left the senior living. The patient had made suicidal statement. Here in the ER he recants this. He has been compliant with his medications. He has no medical complaints. The patient is resting comfortable. He has eaten a meal. PFSH Past Medical History ADHD: Yes Arthritis: No Asthma: No Autoimmune Disease: No Blood Disorders: No Bipolar Disorder: Yes Anxiety: Yes Depression: Yes Heart Rhythm Problems: No Cancer: No Cardiovascular Problems: No High Cholesterol: No Chemotherapy: No Chest Pain: No Congestive Heart Failure: No COPD: No Cerebrovascular Accident: No Developmental Delay: Yes Diabetes: No Diminished Hearing: No Endocrine: No Gastrointestinal Disorders: No GERD: No Glaucoma: No Genitourinary: No Headaches: Yes Hepatitis: Yes (unknown hx of B or C) Hiatal Hernia: No Heparin Induced Thrombocytopen: No Hypertension: No Immune Disorder: No Implanted Vascular Access Dvce: No Kidney Stones: No Musculoskeletal: Yes (L KNEE HURTS AT TIMES) Neurologic: No Psychiatric: Yes Reproductive: No Respiratory: Yes Immunizations Current: No Migraines: No Myocardial Infarction: No Radiation Therapy: No Renal Failure: No Schizophrenia: Yes Seizures: No Sickle Cell Disease: No Sleep Apnea: Yes Thyroid Disease: No Ulcer: No Past Surgical History Abdominal Surgery: No AICD: No Arteriovenous Shunt: No Cardiac Surgery: No Ear Surgery: No Endocrine Surgery: No Eye Surgery: No Genitourinary Surgery: No Gynecologic Surgery: No Insulin Pump: No Joint Replacement: No Neurologic Surgery: No Oral Surgery: No Pacemaker: No Thoracic Surgery: No Social History Alcohol Use: No Tobacco Use: Yes (2 ppd) Substance Use: No (PT DENIES) Allergies-Medications (Allergen,Severity, Reaction): Coded Allergies: No Known Allergies (Verified Allergy, Unknown, 02/28/17) Reported Meds & Prescriptions Reported Meds & Active Scripts Active Carnitor Liq (Levocarnitine) 1 Gm/10 Ml Soln 3 Ml PO TID 15 Days Haloperidol 10 Mg Tab 10 Mg PO TID 15 Days Be sure to get your next Haldol Decanoate injection as scheduled. Mirtazapine 15 Mg Tab 30 Mg PO HS [address] (Divalproex Sodium) 250 Mg Tabdr 1,000 Mg PO HS [address] (Divalproex Sodium) 500 Mg Tabdr 500 Mg PO BID@0900,1500 15 Days Benztropine (Benztropine Mesylate) 0.5 Mg Tab 0.5 Mg PO BID 15 Days Reported Ativan (Lorazepam) 0.5 Mg Tab 0.5 Mg PO Q6H PRN Haldol Decanoate Inj (Haloperidol Decanoate) 100 Mg/Ml Inj 100 Mg IM Q28D Fluticasone Nasal [place] 50 Mcg/Act Naspr 50 Mcg EACH NARE BID 50 mcg/spray Review of Systems General / Constitutional: No: Fever Eyes: No: Visual changes HENT: No: Headaches Cardiovascular: No: Chest Pain or Discomfort Respiratory: No: Shortness of Breath Gastrointestinal: No: Abdominal Pain Genitourinary: No: Dysuria Musculoskeletal: No: Pain Skin: No Rash Neurologic: No: Weakness Psychiatric: Positive: Disorder of Thought, Mood Disorder, No: Anxiety, Depression, Suicidal Ideations, Substance Abuse, Homicidal Ideation Endocrine: No: Polydipsia Hematologic/Lymphatic: No: Easy Bruising Physical Exam Narrative GENERAL: Well-nourished, well-developed patient. SKIN: Warm and dry. HEAD: Normocephalic and atraumatic. EYES: No scleral icterus. No injection or drainage. ENT: No nasal drainage noted. Mucous membranes pink. Airway patent. NECK: Supple, trachea midline. Moves head freely without obvious discomfort. CARDIOVASCULAR: Regular rate and rhythm without murmurs, gallops, or rubs. RESPIRATORY: Breath sounds equal bilaterally. No accessory muscle use. GASTROINTESTINAL: Abdomen soft, non-tender, nondistended. EXTREMITIES: No cyanosis or edema. BACK: Nontender without obvious deformity. No CVA tenderness. NEURO: Patient is alert and oriented. no sensorimotor deficits. Nonfocal. Normal speech. PSYCH: No delusions. No auditory or visual hallucinations. Data Data Last Documented VS Vital Signs Date Time Temp Pulse Resp B/P (MAP) Pulse Ox O2 Delivery O2 Flow Rate FiO2 03/31/17 21:49 98.2 71 18 141/83 (102) 97 Room Air Orders Orders Complete Blood Count With Diff (03/31/17 22:11) Comprehensive Metabolic Panel (03/31/17 22:11) Valproic Acid (Depakene) (03/31/17 22:11) Psych Screen (03/31/17 22:11) Drug Screen, Random Urine (03/31/17 22:11) Labs Laboratory Tests Test 03/31/17 21:50 03/31/17 22:38 Urine Opiates Screen NEG Urine Barbiturates Screen NEG Urine Amphetamines Screen NEG Urine Benzodiazepines Screen NEG Urine Cocaine Screen NEG Urine Cannabinoids Screen NEG White Blood Count 5.2 TH/MM3 Red Blood Count 4.71 MIL/MM3 Hemoglobin 14.2 GM/DL Hematocrit 40.7 % Mean Corpuscular Volume 86.4 FL Mean Corpuscular Hemoglobin 30.2 PG Mean Corpuscular Hemoglobin Concent 35.0 % Red Cell Distribution Width 13.8 % Platelet Count 193 TH/MM3 Mean Platelet Volume 8.9 FL Neutrophils (%) (Auto) 47.0 % Lymphocytes (%) (Auto) 38.2 % Monocytes (%) (Auto) 10.5 % Eosinophils (%) (Auto) 3.5 % Basophils (%) (Auto) 0.8 % Neutrophils # (Auto) 2.4 TH/MM3 Lymphocytes # (Auto) 2.0 TH/MM3 Monocytes # (Auto) 0.5 TH/MM3 Eosinophils # (Auto) 0.2 TH/MM3 Basophils # (Auto) 0.0 TH/MM3 CBC Comment DIFF FINAL Differential Comment Blood Urea Nitrogen 12 MG/DL Creatinine 1.05 MG/DL Random Glucose 147 MG/DL Total Protein 6.7 GM/DL Albumin 3.3 GM/DL Calcium Level 8.4 MG/DL Alkaline Phosphatase 74 U/L Aspartate Amino Transf (AST/SGOT) 66 U/L Alanine Aminotransferase (ALT/SGPT) 128 U/L Total Bilirubin 0.3 MG/DL Sodium Level 138 MEQ/L Potassium Level 3.7 MEQ/L Chloride Level 104 MEQ/L Carbon Dioxide Level 26.8 MEQ/L Anion Gap 7 MEQ/L Estimat Glomerular Filtration Rate 81 ML/MIN Valproic Acid (Depakene) Level 70 MCG/ML MDM Medical Decision Making Medical Screen Exam Complete: Yes Emergency Medical Condition: Yes Medical Record Reviewed: Yes Interpretation(s) Laboratory Tests Test 1/10/18 21:50 03/31/17 22:38 Urine Opiates Screen NEG Urine Barbiturates Screen NEG Urine Amphetamines Screen NEG Urine Benzodiazepines Screen NEG Urine Cocaine Screen NEG Urine Cannabinoids Screen NEG White Blood Count 5.2 TH/MM3 Red Blood Count 4.71 MIL/MM3 Hemoglobin 14.2 GM/DL Hematocrit 40.7 % Mean Corpuscular Volume 86.4 FL Mean Corpuscular Hemoglobin 30.2 PG Mean Corpuscular Hemoglobin Concent 35.0 % Red Cell Distribution Width 13.8 % Platelet Count 193 TH/MM3 Mean Platelet Volume 8.9 FL Neutrophils (%) (Auto) 47.0 % Lymphocytes (%) (Auto) 38.2 % Monocytes (%) (Auto) 10.5 % Eosinophils (%) (Auto) 3.5 % Basophils (%) (Auto) 0.8 % Neutrophils # (Auto) 2.4 TH/MM3 Lymphocytes # (Auto) 2.0 TH/MM3 Monocytes # (Auto) 0.5 TH/MM3 Eosinophils # (Auto) 0.2 TH/MM3 Basophils # (Auto) 0.0 TH/MM3 CBC Comment DIFF FINAL Differential Comment Blood Urea Nitrogen 12 MG/DL Creatinine 1.05 MG/DL Random Glucose 147 MG/DL Total Protein 6.7 GM/DL Albumin 3.3 GM/DL Calcium Level 8.4 MG/DL Alkaline Phosphatase 74 U/L Aspartate Amino Transf (AST/SGOT) 66 U/L Alanine Aminotransferase (ALT/SGPT) 128 U/L Total Bilirubin 0.3 MG/DL Sodium Level 138 MEQ/L Potassium Level 3.7 MEQ/L Chloride Level 104 MEQ/L Carbon Dioxide Level 26.8 MEQ/L Anion Gap 7 MEQ/L Estimat Glomerular Filtration Rate 81 ML/MIN Valproic Acid (Depakene) Level 70 MCG/ML Differential Diagnosis MDM: High Differential diagnoses: Schizophrenia, schizoaffective disorder, bipolar, anxiety, depression, adjustment reaction, mood disorder NOS, ODD, depressive disorder NOS, dementia, dementia with agitation, psychosis NOS, substance induced mood disorder, DMDD, Asperger syndrome, infection,electrolyte abnormality, malingering. Narrative Course Mental health screening discussed with the patient. Psychiatric screen ordered. The patient been medically cleared. This is medical clearance for psychiatric admission Diagnosis Primary Impression: Medical clearance for psychiatric admission Condition: Stable Marck Burris Apr 01, 2017 00:01
[2017-04-01 04:00] VITALS: BP 138/79; PULSE 56; RESP 17; TEMP 97.9; O2SAT 97
[2017-04-01] MEDS ORDERED: traZODone HCL 50 MG TAB PO PRN (15:45)
[2017-04-01] MEDS ORDERED: LORazepam 2 MG/ML VIAL IM PRN (15:45)
[2017-04-01] MEDS ORDERED: ALUMINUM/MAGNESIUM/SIMETH 30 ML CUP PO PRN (15:45)
[2017-04-01] MEDS ORDERED: MAGNESIUM HYDROXIDE SUSP 30 ML CUP PO PRN (15:45)
[2017-04-01] MEDS ORDERED: ACETAMINOPHEN 325 MG TAB PO PRN (15:45)
[2017-04-01] MEDS ORDERED: diphenhydrAMINE HCL 50 MG/ML VIAL IM PRN (15:45)
--- NOTE | 2017-04-01 15:47 | HHI.HP ---
Provisional Diagnosis Admission Date Apr 01, 2017 at 15:32 [place]. Schizoaffective disorder Certification of Person's Competence To Provide Express and Informed Consent I have personally examined Konstantin Peterson , a person being served at [facility] on, Apr 01, 2017 15:38. Express and informed consent means consent voluntarily given in writing, by a competent person, after sufficient explanation and disclosure of the subject matter involved to enable the person to make a knowing and willful decision without any element of force, fraud, deceit, duress, or other form of constraint or coercion. This person is 18 years of age or older, is not now known to be incompetent to consent to treatment with a guardian advocate, and does not have a health care surrogate or proxy currently making medical treatment decisions. I have found this person to be one of the following: [X] Competent to provide express and informed consent, as defined above, for voluntary admission to this facility and is competent to provide express and informed consent for treatment. He/she has the consistent capacity to make well reasoned, willful, and knowing decisions concerning his or her medical or mental health treatment. The person fully and consistently understands the purpose of the admission for examination/placement and is fully capable of personally exercising all rights assured [place] [] Incompetent to provide express and informed consent to voluntary admission, and this is incompetent to provide express and informed consent to treatment. The person must be transferred to involuntary status and a petition for a guardian advocate filed with the Circuit Court. [] Refusing to provide express and informed consent to voluntary admission but is competent to provide express and informed consent for treatment. The person must be discharged or transferred to involuntary status. Form shall be completed within 24 hours of a person's arrival at the receiving facility and filed in the clinical record of each person: 1. Admitted on a voluntary basis 2. Permitted to provide express and informed consent to his/her own treatment 3. Allowed to transfer from involuntary to voluntary status 4. Prior to permitting a person to consent to his or her own treatment after having been previously found incompetent to consent to treatment. History of Present Illness Capacity: Has Capacity HPI 31-year-old male brought in under a Baumann act for making suicidal threats. Patient is well known to the emergency department staff and the inpatient staff here at [facility] from previous psychiatric admissions. He has variously carried a diagnosis of schizophrenia and schizoaffective disorder. On this occasion he was Baumann acted for having suicidal thoughts. Patient admits to making suicidal statements and having suicidal thoughts. He is disgruntled with his situation at his current [facility]. He is uncertain if he can return there. He reports multiple symptoms of depression including depressed mood, anhedonia, suicidal thinking without plan, feelings of hopelessness and helplessness, diminished self-esteem, social withdrawal, decreased energy, sleep disturbance, appetite disturbance, and anxiety. He is unable to contract for safety although admits that his suicidality occurs unpredictably and intermittently. He denies the use of any alcohol or drugs recently. Review of Systems Psychiatric: COMPLAINS OF: Anxiety, Depression, Suicidal Ideation Except as stated in HPI: all other systems reviewed are Neg Past Psych History Psychological trauma history Multiple psychiatric admissions for schizoaffective disorder and schizophrenia. Psychological trauma unknown. Violence risk - others (6 mos) Minimal to moderate. Violence risk - self (6 mos) Moderate to severe. Substance Abuse History Drugs/Alcohol past 12 months Denied Past Family Social History Coded Allergies: No Known Allergies (Verified Allergy, Unknown, 02/28/17) Active Scripts Levocarnitine Liq (Carnitor Liq) 1 Gm/10 Ml Soln, 3 ML PO TID for Hyperammonemia for 15 Days, ML 1 Refill Prov:Stephen Ivy MD 03/03/17 Haloperidol (Haloperidol) 10 Mg Tab, 10 MG PO TID for Mental Health for 15 Days , TAB 1 Refill Be sure to get your next Haldol Decanoate injection as scheduled. Prov:Stephen Ivy MD 03/03/17 Mirtazapine (Mirtazapine) 15 Mg Tab, 30 MG PO HS for Mental Health for 15 Days, TAB 1 Refill Prov:Stephen Ivy MD 03/03/[address] (Divalproex DR) 250 Mg Tabdr, 1000 MG PO HS for Mental Health for 15 Days, TAB 1 Refill Prov:Stephen Ivy MD 03/03/[address] (Divalproex DR) 500 Mg Tabdr, 500 MG PO BID@0900,1500 for Mental Health for 15 Days, TAB 1 Refill Prov:Stephen Ivy MD 03/03/17 Benztropine (Benztropine) 0.5 Mg Tab, 0.5 MG PO BID for Side effect management for 15 Days, #30 TAB 1 Refill Prov:Stephen Ivy MD 03/03/17 Reported Medications Lorazepam (Ativan) 0.5 Mg Tab, 0.5 MG PO Q6H Y for ANXIETY AND/OR AGITATION, TAB 0 Refills 10/04/16 Haloperidol Decanoate Inj (Haldol Decanoate Inj) 100 Mg/Ml Inj, 100 MG IM Q28D for Schizophrenia, #1 VIAL 0 Refills 08/30/16 Fluticasone Nasal [place] (Fluticasone Nasal [place]) 50 Mcg/Act Naspr, 50 MCG EACH NARE BID for Allergy Management, #1 BOTTLE 0 Refills 50 mcg/spray 07/02/16 Current Medications Medications (Trade) Dose Ordered Sig/Bacilio Route Start Time Stop Time Status Last Admin (Ativan) 1 mg Q6H PRN PO 04/01/17 15:45 UNV (Ativan Inj) 1 mg Q6H PRN IM 04/01/17 15:45 UNV (Benadryl) 50 mg Q6H PRN PO 04/01/17 15:45 UNV (Benadryl Inj) 50 mg Q6H PRN IM 04/01/17 15:45 UNV (Tylenol) 650 mg Q4H PRN PO 04/01/17 15:45 UNV (Milk Of Magnesia Liq) 30 ml DAILY PRN PO 04/01/17 15:45 UNV (Mag-Al Plus Susp Liq) 30 ml Q6H PRN PO 04/01/17 15:45 UNV (Desyrel) 50 mg HS PRN PO 04/01/17 15:45 UNV (Depakote Dr) 1,000 mg HS PO 04/01/17 21:00 UNV (Depakote Dr) 500 mg BID@0900,1500 PO 04/02/17 09:00 UNV (Haldol) 10 mg TID PO 04/01/17 18:00 UNV (Carnitor 10% Liq) 3 ml TID PO 04/01/17 18:00 UNV (Remeron) 30 mg HS PO 04/01/17 21:00 UNV (Cogentin) 0.5 mg BID PO 04/01/17 21:00 UNV Family Psych History Positive for psychotic mental illness in mother and brother. Social History Did not graduate from high school. Has never held a job. Receives Social Security disability. Denies the abuse of drugs and alcohol. Family is somewhat supportive but also suffers from mental illness issues. Patient's Strengths (min. 2) Verbal and has access to healthcare. Physical Exam GENERAL: SKIN: Warm and dry. HEAD: Normocephalic. EYES: No scleral icterus. No injection or drainage. NECK: Supple, trachea midline. No JVD or lymphadenopathy. CARDIOVASCULAR: Regular rate and rhythm without murmurs, gallops, or rubs. RESPIRATORY: Breath sounds equal bilaterally. No accessory muscle use. GASTROINTESTINAL: Abdomen soft, non-tender, nondistended. MUSCULOSKELETAL: No cyanosis, or edema. BACK: Nontender without obvious deformity. No CVA tenderness. Vital Signs Vital Signs Date Time Temp Pulse Resp B/P (MAP) Pulse Ox O2 Delivery O2 Flow Rate FiO2 04/01/17 04:00 97.9 56 17 138/79 (98) 97 Room Air Lab Results Test 03/31/17 21:50 03/31/17 22:38 Urine Opiates Screen NEG Urine Barbiturates Screen NEG Urine Amphetamines Screen NEG Urine Benzodiazepines Screen NEG Urine Cocaine Screen NEG Urine Cannabinoids Screen NEG White Blood Count 5.2 TH/MM3 Red Blood Count 4.71 MIL/MM3 Hemoglobin 14.2 GM/DL Hematocrit 40.7 % Mean Corpuscular Volume 86.4 FL Mean Corpuscular Hemoglobin 30.2 PG Mean Corpuscular Hemoglobin Concent 35.0 % Red Cell Distribution Width 13.8 % Platelet Count 193 TH/MM3 Mean Platelet Volume 8.9 FL Neutrophils (%) (Auto) 47.0 % Lymphocytes (%) (Auto) 38.2 % Monocytes (%) (Auto) 10.5 % Eosinophils (%) (Auto) 3.5 % Basophils (%) (Auto) 0.8 % Neutrophils # (Auto) 2.4 TH/MM3 Lymphocytes # (Auto) 2.0 TH/MM3 Monocytes # (Auto) 0.5 TH/MM3 Eosinophils # (Auto) 0.2 TH/MM3 Basophils # (Auto) 0.0 TH/MM3 CBC Comment DIFF FINAL Differential Comment Blood Urea Nitrogen 12 MG/DL Creatinine 1.05 MG/DL Random Glucose 147 MG/DL Total Protein 6.7 GM/DL Albumin 3.3 GM/DL Calcium Level 8.4 MG/DL Alkaline Phosphatase 74 U/L Aspartate Amino Transf (AST/SGOT) 66 U/L Alanine Aminotransferase (ALT/SGPT) 128 U/L Total Bilirubin 0.3 MG/DL Sodium Level 138 MEQ/L Potassium Level 3.7 MEQ/L Chloride Level 104 MEQ/L Carbon Dioxide Level 26.8 MEQ/L Anion Gap 7 MEQ/L Estimat Glomerular Filtration Rate 81 ML/MIN Valproic Acid (Depakene) Level 70 MCG/ML Mental Status Examination Appearance: Disheveled Consciousness: Lethargic Orientation: Person, Place Motor Activity: Normal gait Speech: Hesitant Language: Adequate Fund of Knowledge: Inadequate Attention and Concentration: Inadequate Memory: Impaired Mood: Appropriate Affect: Appropriate Thought Process & Associations: Intact Thought Content: Appropriate Hallucination Type: None Delusion Type: None Suicidal Ideation: Yes Suicidal Plan: Yes Suicidal Intention: Yes Homicidal Ideation: No Homicidal Plan: No Homicidal Intention: No Insight: Fair Judgment: Impulsive Assessment & Plan Problem List: (1) Schizoaffective disorder, depressive type ICD Codes: F25.1 - Schizoaffective disorder, depressive type Assessment & Plan Estimated LOS: days. 31-year-old male with history of multiple psychiatric admissions for schizophrenia or schizoaffective disorder. Patient is followed by [facility] on an outpatient basis and admits to not taking his medications regularly. He is currently feeling depressed and suicidal and he is unable to contract for safety. For these reasons he is being admitted for further evaluation and treatment. This physician has ordered a CBC and comprehensive metabolic panel to determine if any infectious process or metabolic process might be causing or contributing to his depression and suicidality. This physician has also ordered thyroid stimulating hormone levels, vitamin B-12 levels and vitamin D levels, as deficiencies in these areas can also cause or contribute to his depression. This physician has also ordered an EKG to determine the patient's cardiac conduction status as many psychotropic medicines can change the electrical conduction system of his heart. Additionally, this physician ordered a hep us consult as the patient reportedly has a history of hepatitis. Because the patient is overweight and on multiple psychotropic medicines which might adversely affect his metabolism, this physician ordered a hemoglobin A1c this physician spoke with the patient's nurse regarding his recent behavior. Case management will also be involved to assist with information gathering and disposition planning. The patient's previous medications were restarted while he is being evaluated. Gabriel Bingham MD Apr 01, 2017 15:47
[2017-04-01 16:25] VITALS: BP 165/82; PULSE 68; RESP 18; TEMP 97.6; O2SAT 99
[2017-04-01 17:48] VITALS: BP 159/97; PULSE 59; RESP 17; TEMP 97.6; O2SAT 97
[2017-04-01] MEDS: levOCARNitine 10% ORAL SOLN 118 ML BTL PO SCH (18:00)
[2017-04-01] MEDS: HALOPERIDOL 10 MG TAB PO SCH (18:33)
[2017-04-01] MEDS: BENZTROPINE MESYLATE 1 MG TAB PO SCH (20:27)
[2017-04-01] MEDS: MIRTAZAPINE 15 MG TAB PO SCH (20:27)
[2017-04-01] MEDS: DIVALPROEX SODIUM DELAYED RELEASE 250 MG TAB PO SCH (20:28)
[2017-04-02 05:44] VITALS: BP 134/75; PULSE 65; RESP 18; TEMP 98.1; O2SAT 98
[2017-04-02] MEDS: HALOPERIDOL 10 MG TAB PO SCH ×3 (09:12→17:39)
[2017-04-02] MEDS: DIVALPROEX DR 500 MG TABEC PO SCH ×2 (09:12→15:56)
[2017-04-02] MEDS: BENZTROPINE MESYLATE 1 MG TAB PO SCH ×2 (09:13→21:28)
[2017-04-02] MEDS: levOCARNitine 10% ORAL SOLN 118 ML BTL PO SCH ×3 (09:15→17:39)
[2017-04-02] MEDS: diphenhydrAMINE HCL 50 MG CAP PO PRN ×2 (09:40→21:28)
[2017-04-02 11:40] LABS: AUTOMATED NEUTROPHIL # 2.1 TH/MM3 (1.8-7.7); BASOPHIL # 0.1 TH/MM3 (0-0.2); BASOPHIL % 1.3 % (0.0-2.0); EOSINOPHIL # 0.1 TH/MM3 (0-0.4); HEMATOCRIT 46.9 % (39.0-51.0); HEMOGLOBIN 15.7 GM/DL (13.0-17.0); LYMPH % 35.9 % (9.0-44.0); LYMPHOCYTE # 1.6 TH/MM3 (1.0-4.8); MEAN CELL VOLUME 86.5 FL (80.0-100.0); MEAN CORPUSCULAR HGB CONC 33.5 % (32.0-36.0); MEAN PLATELET VOLUME 8.4 FL (7.0-11.0); MONOCYTE # 0.5 TH/MM3 (0-0.9); NEUT % 47.8 % (16.0-70.0); PLATELET COUNT 198 TH/MM3 (150-450); RED BLOOD COUNT 5.42 MIL/MM3 (4.50-5.90); RED CELL DISTRIBUTION WIDTH 13.6 % (11.6-17.2); WHITE BLOOD COUNT 4.5 TH/MM3 (4.0-11.0)
[2017-04-02 12:03] LABS: ALT (GPT) 142 U/L (12-78); AST (GOT) 60 U/L (15-37); BLOOD UREA NITROGEN 15 MG/DL (7-18); CALCIUM 9.1 MG/DL (8.5-10.1); CHLORIDE 104 MEQ/L (98-107); CHOLESTEROL 151 MG/DL (120-200); CREATININE 0.97 MG/DL (0.60-1.30); GLOMERULAR FILTRATION RATE 89 ML/MIN (>89); GLUCOSE,RANDOM 78 MG/DL (74-106); SODIUM (NA) 138 MEQ/L (136-145); TRIGLYCERIDES 140 MG/DL (42-150)
[2017-04-02 12:28] LABS: ALKALINE PHOSPHATASE 79 U/L (45-117); CHOLESTEROL/ HDL RATIO 3.18 RATIO; HDL CHOLESTEROL 47.4 MG/DL (40.0-60.0); LDL CHOLESTEROL 76 MG/DL (0-99); TOTAL BILIRUBIN ADULT 0.3 MG/DL (0.2-1.0); TOTAL PROTEIN 7.7 GM/DL (6.4-8.2)
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
[2017-04-02] MEDS: LORazepam 1 MG TAB PO PRN (13:19)
--- NOTE | 2017-04-02 13:44 | HHI.PYPN ---
Subjective Remarks Patient initially seen by Dr. Gabriel Bingham who did the initial psychiatric H& P. The document reviewed and agreed with. I have completed the initial psychiatric template orders for admission. And review the med reconciliation. Patient seen by me on unit with nurse Lainey, chart review, patient compliant medications. Acknowledges increased stress at his [facility] primarily with his roommate leading to more paranoia anger and frustration with increased auditory hallucinations of a command nature vague suicidal ideation. Patient now states he wishes to go to another [facility]. This is similar trip behaviors of prior hospitalizations. For now will continue medications no change will recheck Depakote blood level in 2 days this question as the patient' s compliance with medication at the group Review of Systems Except as stated in HPI: all other systems reviewed are Neg Mental Status Examination Appearance: Disheveled Consciousness: Lethargic Orientation: Person, Place Motor Activity: Normal gait Speech: Hesitant Language: Adequate Fund of Knowledge: Inadequate Attention and Concentration: Inadequate Memory: Impaired Mood: Appropriate Affect: Appropriate Thought Process & Associations: Intact Thought Content: Appropriate Hallucination Type: None Delusion Type: None Suicidal Ideation: Yes Suicidal Plan: Yes Suicidal Intention: Yes Homicidal Ideation: No Homicidal Plan: No Homicidal Intention: No Insight: Fair Judgment: Impulsive Results Labs Test 04/02/17 10:53 White Blood Count 4.5 TH/MM3 Red Blood Count 5.42 MIL/MM3 Hemoglobin 15.7 GM/DL Hematocrit 46.9 % Mean Corpuscular Volume 86.5 FL Mean Corpuscular Hemoglobin 29.0 PG Mean Corpuscular Hemoglobin Concent 33.5 % Red Cell Distribution Width 13.6 % Platelet Count 198 TH/MM3 Mean Platelet Volume 8.4 FL Neutrophils (%) (Auto) 47.8 % Lymphocytes (%) (Auto) 35.9 % Monocytes (%) (Auto) 12.0 % Eosinophils (%) (Auto) 3.0 % Basophils (%) (Auto) 1.3 % Neutrophils # (Auto) 2.1 TH/MM3 Lymphocytes # (Auto) 1.6 TH/MM3 Monocytes # (Auto) 0.5 TH/MM3 Eosinophils # (Auto) 0.1 TH/MM3 Basophils # (Auto) 0.1 TH/MM3 CBC Comment DIFF FINAL Differential Comment Blood Urea Nitrogen 15 MG/DL Creatinine 0.97 MG/DL Random Glucose 78 MG/DL Total Protein 7.7 GM/DL Albumin 4.0 GM/DL Calcium Level 9.1 MG/DL Alkaline Phosphatase 79 U/L Aspartate Amino Transf (AST/SGOT) 60 U/L Alanine Aminotransferase (ALT/SGPT) 142 U/L Total Bilirubin 0.3 MG/DL Sodium Level 138 MEQ/L Potassium Level 4.1 MEQ/L Chloride Level 104 MEQ/L Carbon Dioxide Level 28.0 MEQ/L Anion Gap 6 MEQ/L Estimat Glomerular Filtration Rate 89 ML/MIN Triglycerides Level 140 MG/DL Cholesterol Level 151 MG/DL LDL Cholesterol 76 MG/DL HDL Cholesterol 47.4 MG/DL Cholesterol/HDL Ratio 3.18 RATIO Vitamin B12 Level 1369 PG/ML 25-Hydroxy Vitamin D Total 15.2 ng/ML Thyroid Stimulating Hormone 3rd Gen 1.890 uIU/ML Vitals/IOs Vital Signs Date Time Temp Pulse Resp B/P (MAP) Pulse Ox O2 Delivery O2 Flow Rate FiO2 04/02/17 05:44 98.1 65 18 134/75 (94) 98 04/01/17 16:25 Room Air Intake and Output 04/02/17 04/02/17 04/03/17 08:00 16:00 00:00 Intake Total 480 ml 480 ml Balance 480 ml 480 ml Assessment & Plan Problem List: (1) Schizoaffective disorder, depressive type ICD Codes: F25.1 - Schizoaffective disorder, depressive type Assessment & Plan Estimated LOS: days patient paranoid vigilant psychotic, compliant medications , will recheck Depakote blood level over in 2 days. For now continue treatment Justification for Cont. Inpt. At this time patient will decompensate in place to the lower level of care Discharge Planning The patient will not return to her [facility] placement may become difficult Request HC Surrog/Guard Advoc?: No Anthony Boswell MD Apr 02, 2017 13:44
[2017-04-02] MEDS ORDERED: IBUPROFEN 400 MG TAB PO PRN (14:45)
[2017-04-02 16:19] LABS: HEMOGLOBIN A1C 5.2 % (4.3-6.0)
--- NOTE | 2017-04-02 16:48 | EKG ---
Date Performed: 04/02/2017 Time Performed: 07:28:14 PTAGE: 31 years EKG: Sinus rhythm INDETERMINATE AXIS LEFT POSTERIOR FASCICULAR BLOCK ABNORMAL ECG PREVIOUS TRACING : 03/01/2017 13.16 Since previous tracing, no significant change noted DOCTOR: Kristian Marlow Interpretating Date/Time 04/02/2017 16:46:28
[2017-04-02 18:39] VITALS: BP 151/71; PULSE 72; RESP 18; TEMP 98.5; O2SAT 97
[2017-04-02 18:40] VITALS: BP 151/71; PULSE 72; RESP 18; TEMP 98.5; O2SAT 97
[2017-04-02] MEDS: DIVALPROEX SODIUM DELAYED RELEASE 250 MG TAB PO SCH (21:26)
[2017-04-02] MEDS: MIRTAZAPINE 15 MG TAB PO SCH (21:27)
[2017-04-03 05:57] VITALS: BP 104/58; PULSE 59; RESP 16; TEMP 97.4
[2017-04-03] MEDS: levOCARNitine 10% ORAL SOLN 118 ML BTL PO SCH ×3 (09:00→17:42)
[2017-04-03] MEDS: BENZTROPINE MESYLATE 1 MG TAB PO SCH ×2 (09:12→21:35)
[2017-04-03] MEDS: HALOPERIDOL 10 MG TAB PO SCH ×3 (09:12→17:43)
[2017-04-03] MEDS: MULTIVITAMIN TAB PO SCH (09:13)
[2017-04-03] MEDS: DIVALPROEX DR 500 MG TABEC PO SCH ×2 (09:13→14:23)
[2017-04-03] MEDS: LORazepam 1 MG TAB PO PRN ×2 (09:16→14:23)
[2017-04-03] MEDS: diphenhydrAMINE HCL 50 MG CAP PO PRN ×2 (12:35→21:35)
--- NOTE | 2017-04-03 12:51 | HHI.PR ---
Subjective Remarks Follow up for HTN, arthritis, and hep B. Patient seen and examined in day room. He is not complaining of any pain, he denies fevers, chills, nausea, vomiting, diarrhea. He is requesting ensure drink with his meals. Moving bowels without any issues, denies dysuria. Objective Vitals Vital Signs Date Time Temp Pulse Resp B/P (MAP) Pulse Ox O2 Delivery O2 Flow Rate FiO2 04/03/17 05:57 97.4 59 16 104/58 (73) 04/02/17 18:40 98.5 72 18 151/71 (97) 97 04/02/17 18:39 98.5 72 18 151/71 (97) 97 I/O 04/02/17 04/02/17 04/02/17 04/03/17 04/03/17 04/03/17 07:00 15:00 23:00 07:00 15:00 23:00 Intake Total 960 ml Balance 960 ml Intake Oral 960 ml Result Diagram: 04/02/17 1053 04/02/17 1053 Objective Remarks GENERAL: This is a well-nourished, well-developed patient, in no apparent distress, childlike demeanor. SKIN: No rashes. Cool and dry. HEAD: Atraumatic. Normocephalic. EYES: Pupils equal round and reactive, amblyopia. No scleral icterus. No injection or drainage. ENT: Nose without bleeding, purulent drainage. Airway patent. NECK: Trachea midline. No JVD. Supple. CARDIOVASCULAR: Regular rate and rhythm without murmurs, gallops, or rubs. RESPIRATORY: Clear to auscultation. Breath sounds equal bilaterally. No wheezes , rales, or rhonchi. GASTROINTESTINAL: Abdomen soft, non-tender, nondistended, normal active bowel sounds in all quadrants. No palpable masses. No guarding. MUSCULOSKELETAL: Extremities without clubbing, cyanosis, or edema. No joint tenderness, effusion, or edema noted. + left knee crepitus with active ROM. NEUROLOGICAL: Awake and alert. Cranial nerves II through XII intact. Motor and sensory grossly within normal limits. Ambulating without difficulties. Normal speech. A/P Problem List: (1) Schizophrenia ICD Code: F20.9 - Schizophrenia, unspecified Status: Acute (2) HTN (hypertension) ICD Code: I10 - Essential (primary) hypertension (3) Hepatitis B ICD Code: B19.10 - Unspecified viral hepatitis B without hepatic coma (4) Back pain ICD Code: M54.9 - Dorsalgia, unspecified (5) Arthritis ICD Code: M19.90 - Unspecified osteoarthritis, unspecified site Status: Acute Assessment and Plan 31-year-old male who lives in [facility] admitted to inpatient psychiatry unit due to suicidal statements. Patient has a past medical history of schizophrenia, HTN, arthritis, and hepatitis B. medical team consulted to assist with minute of hepatitis, and cardiac issues. Schizophrenia - Treatment plan per psychiatry Hepatitis B - Labwork from EMR reviewed, 03/03/17 with +Hep Bs antigen - Patient reports having liver biopsy done in this was normal, ? The accuracy of his history - AST 60, a LT 142, alkaline phosphatase 79 - Patient will need to follow-up with gastroenterology or hepatology as outpatient for treatment HTN - Patient not on any medications, blood pressure this morning 104/58 - Continue to monitoring Arthritis Lower back pain - No complaints of pain today. - Ibuprofen if needed Tobacco abuse - Patient repots smoking 1PPD - Counseled on the importance of cessation - Offered Nicotine patch, but declined. DVT prophylaxis - Patient is ambulating Patient discussed with nurse. Monico Cosme Apr 03, 2017 12:51
--- NOTE | 2017-04-03 17:05 | HHI.PYPN ---
Subjective Remarks Pt seen and discussed with staff. He has been anxious and intrusive with staff. He continues to experience AH and reported to RN that he was having SI. He is guarded during interview. He is compliant [facility] medication. Mental Status Examination Appearance: Disheveled Consciousness: Lethargic Orientation: Person, Place Motor Activity: Normal gait Speech: Hesitant Language: Adequate Fund of Knowledge: Inadequate Attention and Concentration: Easily Distracted Memory: Impaired Mood: Appropriate, Irritable Affect: Irritable Thought Process & Associations: Intact Thought Content: Bizarre thinking Hallucination Type: Auditory Delusion Type: None Suicidal Ideation: Yes Suicidal Plan: No Suicidal Intention: No Homicidal Ideation: No Homicidal Plan: No Homicidal Intention: No Insight: Fair Judgment: Impulsive Results Vitals/IOs Vital Signs Date Time Temp Pulse Resp B/P (MAP) Pulse Ox O2 Delivery O2 Flow Rate FiO2 04/03/17 05:57 97.4 59 16 104/58 (73) 04/02/17 18:40 97 04/01/17 16:25 Room Air Assessment & Plan Problem List: (1) Schizoaffective disorder, depressive type ICD Codes: F25.1 - Schizoaffective disorder, depressive type Assessment & Plan Continue current tx plan.Estimated LOS: days Justification for Cont. Inpt. impairments in safety Request HC Surrog/Guard Advoc?: Kiersten Mo MD Apr 03, 2017 17:05
[2017-04-03 18:16] VITALS: BP 143/77; PULSE 70; RESP 17; TEMP 98.1; O2SAT 98
[2017-04-03] MEDS: MIRTAZAPINE 15 MG TAB PO SCH (21:33)
[2017-04-03] MEDS: DIVALPROEX SODIUM DELAYED RELEASE 250 MG TAB PO SCH (21:34)
[2017-04-04 05:27] VITALS: BP 113/62; PULSE 63; RESP 18; TEMP 97.8; O2SAT 95
[2017-04-04] MEDS: DIVALPROEX DR 500 MG TABEC PO SCH ×2 (09:00→14:22)
[2017-04-04] MEDS: levOCARNitine 10% ORAL SOLN 118 ML BTL PO SCH ×3 (09:00→17:14)
[2017-04-04] MEDS: BENZTROPINE MESYLATE 1 MG TAB PO SCH ×2 (10:20→21:18)
[2017-04-04] MEDS: HALOPERIDOL 10 MG TAB PO SCH ×3 (10:20→17:35)
[2017-04-04] MEDS: MULTIVITAMIN TAB PO SCH (10:20)
--- NOTE | 2017-04-04 13:50 | HHI.PR ---
Subjective Remarks Follow up for HTN, arthritis, and hep B. She seen and examined resting comfortably in bed in no acute distress. He denies any pain, cough, shortness of breath, fevers, chills, nausea, vomiting, or diarrhea. Spoke with nurse who does not report any concerns. Objective Vitals Vital Signs Date Time Temp Pulse Resp B/P (MAP) Pulse Ox O2 Delivery O2 Flow Rate FiO2 04/04/17 05:27 97.8 63 18 113/62 (79) 95 04/03/17 18:16 98.1 70 17 143/77 (99) 98 I/O 04/03/17 04/03/17 04/03/17 04/04/17 04/04/17 04/04/17 07:00 15:00 23:00 07:00 15:00 23:00 Intake Total 480 ml Balance 480 ml Intake Oral 480 ml Result Diagram: 04/02/17 1053 04/02/17 1053 Objective Remarks GENERAL: This is a well-nourished, well-developed patient, in no apparent distress, childlike demeanor. SKIN: No rashes. Cool and dry. HEAD: Atraumatic. Normocephalic. EYES: Pupils equal round and reactive, amblyopia. No scleral icterus. No injection or drainage. ENT: Nose without bleeding, purulent drainage. Airway patent. NECK: Trachea midline. No JVD. Supple. CARDIOVASCULAR: Regular rate and rhythm without murmurs, gallops, or rubs. RESPIRATORY: Clear to auscultation. Breath sounds equal bilaterally. No wheezes , rales, or rhonchi. GASTROINTESTINAL: Abdomen soft, non-tender, nondistended, normal active bowel sounds in all quadrants. No palpable masses. No guarding. MUSCULOSKELETAL: Extremities without clubbing, cyanosis, or edema. No joint tenderness, effusion, or edema noted. NEUROLOGICAL: Awake and alert. Motor and sensory grossly within normal limits. Moving all extremities without difficulties. Normal speech. A/P Problem List: (1) Schizophrenia ICD Code: F20.9 - Schizophrenia, unspecified Status: Acute (2) HTN (hypertension) ICD Code: I10 - Essential (primary) hypertension (3) Hepatitis B ICD Code: B19.10 - Unspecified viral hepatitis B without hepatic coma (4) Back pain ICD Code: M54.9 - Dorsalgia, unspecified (5) Arthritis ICD Code: M19.90 - Unspecified osteoarthritis, unspecified site Status: Acute Assessment and Plan 31-year-old male who lives in [facility] admitted to inpatient psychiatry unit due to suicidal statements. Patient has a past medical history of schizophrenia, HTN, arthritis, and hepatitis B. medical team consulted to assist with minute of hepatitis, and cardiac issues. Schizophrenia - Treatment plan per psychiatry Hepatitis B - Labwork from EMR reviewed, 03/03/17 with +Hep Bs antigen - Patient reports having liver biopsy done in this was normal, ? The accuracy of his history - AST 60, a LT 142, alkaline phosphatase 79 - Patient will need to follow-up with gastroenterology or hepatology as outpatient for treatment HTN - Patient not on any medications, blood pressure this morning 113/62 -Stable Arthritis Lower back pain - No complaints of pain today. - Ibuprofen if needed Tobacco abuse - Patient repots smoking 1PPD - Counseled on the importance of cessation - Offered Nicotine patch, but declined. DVT prophylaxis - Patient is ambulating Patient discussed with nurse. We will sign off, please reconsult if needed. Monico Cosme Apr 04, 2017 13:50
--- NOTE | 2017-04-04 14:43 | HHI.PYPN ---
Subjective Remarks Pt seen and discussed with staff. He has denies SI/HI today and been out of room more, participating in milieu. He states that AH are intermittent but less impairing and he is "just ignoring them now." No aggression or agitation Mental Status Examination Appearance: Appropriate Consciousness: Lethargic Orientation: Person, Place Motor Activity: Normal gait Speech: Hesitant Language: Adequate Fund of Knowledge: Inadequate Attention and Concentration: Easily Distracted Memory: Impaired Mood: Appropriate, Irritable Affect: Irritable Thought Process & Associations: Intact Thought Content: Bizarre thinking (decreased) Hallucination Type: None, Auditory (decreased) Delusion Type: None Suicidal Ideation: No Suicidal Plan: No Suicidal Intention: No Homicidal Ideation: No Homicidal Plan: No Homicidal Intention: No Insight: Fair Judgment: Impulsive Results Labs Test 04/04/17 13:42 Valproic Acid (Depakene) Level 67 MCG/ML Vitals/IOs Vital Signs Date Time Temp Pulse Resp B/P (MAP) Pulse Ox O2 Delivery O2 Flow Rate FiO2 04/04/17 05:27 97.8 63 18 113/62 (79) 95 04/01/17 16:25 Room Air Intake and Output 04/04/17 04/04/17 04/05/17 08:00 16:00 00:00 Intake Total 240 ml 240 ml Balance 240 ml 240 ml Assessment & Plan Problem List: (1) Schizoaffective disorder, depressive type ICD Codes: F25.1 - Schizoaffective disorder, depressive type Assessment & Plan Pt improving. Continue current tx plan. Estimated LOS: days Justification for Cont. Inpt. risk of decompensation Request HC Surrog/Guard Advoc?: Kiersten Mo MD Apr 04, 2017 14:43
[2017-04-04] MEDS: LORazepam 1 MG TAB PO PRN (15:50)
[2017-04-04 17:14] VITALS: BP 131/73; PULSE 67; RESP 16; TEMP 98; O2SAT 98
[2017-04-04] MEDS: DIVALPROEX SODIUM DELAYED RELEASE 250 MG TAB PO SCH (21:17)
[2017-04-04] MEDS: MIRTAZAPINE 15 MG TAB PO SCH (21:17)
[2017-04-04] MEDS: diphenhydrAMINE HCL 50 MG CAP PO PRN (21:18)
[2017-04-05 05:47] VITALS: BP 117/65; PULSE 54; RESP 18; TEMP 97.5; O2SAT 100
[2017-04-05] MEDS: BENZTROPINE MESYLATE 1 MG TAB PO SCH (09:02)
[2017-04-05] MEDS: DIVALPROEX DR 500 MG TABEC PO SCH ×2 (09:02→15:00)
[2017-04-05] MEDS: MULTIVITAMIN TAB PO SCH (09:02)
[2017-04-05] MEDS: HALOPERIDOL 10 MG TAB PO SCH ×3 (09:02→17:41)
[2017-04-05] MEDS: levOCARNitine 10% ORAL SOLN 118 ML BTL PO SCH ×3 (09:03→17:41)
[2017-04-05] MEDS ORDERED: LORA-392 PO (16:37)
[2017-04-05] MEDS ORDERED: BENZ0.5T PO (16:37)
[2017-04-05] MEDS ORDERED: HALO10TA PO (16:37)
[2017-04-05] MEDS ORDERED: DIVA250T PO (16:37)
[2017-04-05] MEDS ORDERED: THERTAB15 PO (16:37)
[2017-04-05] MEDS ORDERED: DIVA500T PO (16:37)
[2017-04-05] MEDS ORDERED: LEVO10%S PO (16:37)
[2017-04-05] MEDS ORDERED: MIRTA15 PO (16:37)
[2017-04-05] MEDS ORDERED: FLUT50SP EACH NARE (16:37)
--- NOTE | 2017-04-05 16:42 | HHI.DS ---
Psychiatry Discharge Summary Inpatient Psychiatric care?: Yes Advance Directive: No Reason Not Provided: Provided to patient Mental Health AdvanceDirective: No Health Care Proxy: No Admission Admission Date Apr 01, 2017 at 15:32 Admission Diagnosis: (1) Schizoaffective disorder, depressive type ICD Code: F25.1 - Schizoaffective disorder, depressive type Brief History 31-year-old male brought in under a Baumann act for making suicidal threats. Patient is well known to the emergency department staff and the inpatient staff here at [place] from previous psychiatric admissions. He has variously carried a diagnosis of schizophrenia and schizoaffective disorder. On this occasion he was Baumann acted for having suicidal thoughts. Patient admits to making suicidal statements and having suicidal thoughts. He is disgruntled with his situation at his current [facility]. He is uncertain if he can return there. He reports multiple symptoms of depression including depressed mood, anhedonia, suicidal thinking without plan, feelings of hopelessness and helplessness, diminished self-esteem, social withdrawal, decreased energy, sleep disturbance, appetite disturbance, and anxiety. He is unable to contract for safety although admits that his suicidality occurs unpredictably and intermittently. He denies the use of any alcohol or drugs recently. Tobacco Use In Past 30 Days: 4 or Less Cigarettes/Day Alcohol Use: Never Hospital Course Patient hospital course was uneventful, he show compliance with his medications. Us pleasant with no behavioral problems. Did decide he wishes to return to his [facility]. Patient showed consistency of this behavior over the weekend. Patient discharged today to his [facility] with Rx 1 month follow-up [facility] or mental health services in the community Results Blood Pressure 117 / 65 Vital Signs Date Time Temp Pulse Resp B/P (MAP) Pulse Ox O2 Delivery O2 Flow Rate FiO2 04/05/17 05:47 97.5 54 18 117/65 (82) 100 04/01/17 16:25 Room Air Laboratory Tests Test 04/04/17 13:42 Laboratory Results Test 04/02/17 10:53 04/04/17 13:42 Cholesterol Level 151 MG/DL (120-200) HDL Cholesterol 47.4 MG/DL (40.0-60.0) Hemoglobin A1c 5.2 % (4.3-6.0) LDL Cholesterol 76 MG/DL (0-99) Triglycerides Level 140 MG/DL (42-150) Valproic Acid (Depakene) Level 67 MCG/ML (50-100) Summary of Procedures None done Pending results at discharge: No Medications # of Antipsychotic meds at D/C: 1 Approp Antipsych med options 1 - Minimum of three failed multiple trials of monotherapy. 2 - Documented plan to taper to monotherapy due to previous use of multiple meds OR cross-taper in progress at D/C. 3 - Documentation of augmentation of Clozapine. 4 - Justification other than those listed in allowable values 1-3, document here : Discharge Discharge Date: Apr 05, 2017 Discharge Diagnosis: (1) Schizoaffective disorder, depressive type Diagnosis: Principal ICD Code: F25.1 - Schizoaffective disorder, depressive type Pt Condition on Discharge: Stable Discharge Disposition: [facility] Discharge Instructions Diet Instructions: As Tolerated, No Restrictions Activities you can perform: Regular-No Restrictions Scheduled Appointment: [facility] Discharge Time > 30 minutes Mental Status Examination Appearance: Appropriate Consciousness: Lethargic Orientation: Person, Place Motor Activity: Normal gait Speech: Hesitant Language: Adequate Fund of Knowledge: Inadequate Attention and Concentration: Easily Distracted Memory: Impaired Mood: Appropriate, Irritable Affect: Irritable Thought Process & Associations: Intact Thought Content: Bizarre thinking (decreased) Hallucination Type: None, Auditory (decreased) Delusion Type: None Suicidal Ideation: No Suicidal Plan: No Suicidal Intention: No Homicidal Ideation: No Homicidal Plan: No Homicidal Intention: No Insight: Fair Judgment: Impulsive Discharge/Advance Care Plan Health Problems: (1) Schizoaffective disorder, depressive type Goals to promote your health * To prevent worsening of your condition and complications * To maintain your health at the optimal level Directions to meet your goals Take your medications as prescribed Follow your dietary instruction Follow activity as directed Keep your appointments as scheduled Take your immunizations and boosters as scheduled If your symptoms worsen call your PCP, if no PCP go to Urgent Care Center or Emergency Room For 12/10 questions related to your inpatient stay or results of tests pending at discharge, please contact Dr. Anthony Boswell at Smoking is Dangerous to Your Health. Avoid second hand smoking Anthony Boswell MD Apr 05, 2017 16:42
[2017-04-05 18:00] VITALS: BP 125/73; PULSE 69; RESP 18; TEMP 98; O2SAT 98
== END 2017-04-05 18:20 | DRG 885 ==
LOC: NEPJ 21:39 → NEDA 04-01 15:32 → H260 04-01 17:30
PROVIDERS: ADMIT Psychiatry & Neurology Psychiatry; ATTEND Psychiatry & Neurology Psychiatry
DX: F25.1 Schizoaffective disorder, depressive type (principal); R45.851 Suicidal ideations; B19.10 Unspecified viral hepatitis B without hepatic coma; I10 Essential (primary) hypertension; F90.9 Attention-deficit hyperactivity disorder, unspecified type; R62.50 Unspecified lack of expected normal physiological development in childhood; F41.9 Anxiety disorder, unspecified; E66.3 Overweight; M25.562 Pain in left knee; M46.96 Unspecified inflammatory spondylopathy, lumbar region; F17.210 Nicotine dependence, cigarettes, uncomplicated; Z68.31 Body mass index [BMI] 31.0-31.9, adult; Z81.8 Family history of other mental and behavioral disorders
CPT/HCPCS: 80053; 80061; 80164; 80307; 82306; 82607; 83036; 84443; 85025; 93005; 99285; Q0163

== ENCOUNTER 2017-04-18 20:46 | Inpatient (IN) | payer OTHER ==
[~2017-04-18] VITALS: Ht 167.6 cm; Wt 98.0 kg
[~2017-04-18 20:46] MED LIST changes: +THERTAB15 PO
[2017-04-18 20:57] VITALS: BP 138/88; PULSE 69; RESP 16; TEMP 98.1; O2SAT 97
[2017-04-18 21:19] VITALS: RESP 16
--- NOTE | 2017-04-18 21:25 | RADRPT ---
EXAM DATE/TIME: 04/18/2017 21:15 [place] COMPARISON: No previous studies available for comparison. INDICATIONS : Chest pain. Center of chest. MEDICAL HISTORY : None. SURGICAL HISTORY : None. ENCOUNTER: Initial ACUITY: 1 day PAIN SCORE: 4/10 LOCATION: Bilateral chest FINDINGS: A single view of the chest demonstrates the lungs to be symmetrically aerated without evidence of mas s, infiltrate or effusion. The cardiomediastinal contours are unremarkable. Osseous structures are intact. CONCLUSION: No evidence of acute cardiopulmonary disease. Anthony Magallon MD on April 18, 2017 at 21:23 Board Certified Radiologist. This report was verified electronically.
[2017-04-18 21:39] LABS: BILIRUBIN, URINE NEG (NEG); BLOOD, URINE TRACE (NEG); GLUCOSE,URINE NEG (NEG); KETONE, URINE NEG (NEG); NITRITE,URINE NEG (NEG); PH, URINE 7.5 (5.0-8.5); URINE COLOR LIGHT-YELLOW (YELLW/STRAW); URINE LEUKOCYTE ESTERASE NEG (NEG)
--- NOTE | 2017-04-18 22:21 | PD ---
HPI Chief Complaint: Psychiatric Symptoms Time Seen by Provider: 22:09 Travel History International Travel<30 days: No Contact w/Intl Traveler<30days: No Traveled to known affect area: No History of Present Illness HPI 31-year-old male known to the medical staff and myself for multiple ER visits due to his underlying mental health. He has become acutely agitated at the care home. The patient states that he is hearing voices and he has contemplating hurting himself with a knife. PFSH Past Medical History ADHD: Yes Arthritis: No Asthma: No Autoimmune Disease: No Blood Disorders: No Bipolar Disorder: Yes Anxiety: Yes Depression: Yes Heart Rhythm Problems: No Cancer: No Cardiovascular Problems: No High Cholesterol: No Chemotherapy: No Chest Pain: No Congestive Heart Failure: No COPD: No Cerebrovascular Accident: No Developmental Delay: Yes Diabetes: No Diminished Hearing: No Endocrine: No Gastrointestinal Disorders: No GERD: No Glaucoma: No Genitourinary: No Headaches: Yes Hepatitis: Yes (unknown hx of B or C) Hiatal Hernia: No Heparin Induced Thrombocytopen: No Hypertension: No Immune Disorder: No Implanted Vascular Access Dvce: No Kidney Stones: No Musculoskeletal: Yes (L KNEE HURTS AT TIMES) Neurologic: No Psychiatric: Yes Reproductive: No Respiratory: Yes Immunizations Current: Yes Migraines: No Myocardial Infarction: No Radiation Therapy: No Renal Failure: No Schizophrenia: Yes Seizures: No Sickle Cell Disease: No Sleep Apnea: Yes Thyroid Disease: No Ulcer: No Tetanus Vaccination: < 5 Years Influenza Vaccination: Yes Past Surgical History Abdominal Surgery: No AICD: No Arteriovenous Shunt: No Cardiac Surgery: No Ear Surgery: No Endocrine Surgery: No Eye Surgery: No Genitourinary Surgery: No Gynecologic Surgery: No Insulin Pump: No Joint Replacement: No Neurologic Surgery: No Oral Surgery: No Pacemaker: No Thoracic Surgery: No Other Surgery: Yes Social History Alcohol Use: No Tobacco Use: Yes (2 ppd) Substance Use: No Allergies-Medications (Allergen,Severity, Reaction): Coded Allergies: No Known Allergies (Verified Allergy, Unknown, 04/18/17) Reported Meds & Prescriptions Reported Meds & Active Scripts Active Thera Tablet (Multivitamin with Folic Acid) 400 Mcg Tablet 1 Tab PO DAILY Carnitor Liq (Levocarnitine) 1 Gm/10 Ml Soln 3 Ml PO TID 15 Days Haloperidol 10 Mg Tab 10 Mg PO TID Be sure to get your next Haldol Decanoate injection as scheduled. Mirtazapine 15 Mg Tab 30 Mg PO [address] (Divalproex Sodium) 250 Mg Tabdr 1,000 Mg PO [address] HS [address] (Divalproex Sodium) 500 Mg Tabdr 500 Mg PO BID@0900,1500 15 Days Benztropine (Benztropine Mesylate) 0.5 Mg Tab 0.5 Mg PO BID 15 Days Ativan (Lorazepam) 0.5 Mg Tab 0.5 Mg PO Q6H PRN Fluticasone Nasal [place] 50 Mcg/Act Naspr 50 Mcg EACH NARE BID 50 mcg/spray Reported Haldol Decanoate Inj (Haloperidol Decanoate) 100 Mg/Ml Inj 100 Mg IM Q28D Review of Systems General / Constitutional: No: Fever Eyes: No: Visual changes HENT: No: Headaches Cardiovascular: No: Chest Pain or Discomfort Respiratory: No: Shortness of Breath Gastrointestinal: No: Abdominal Pain Genitourinary: No: Dysuria Musculoskeletal: No: Pain Skin: No Rash Neurologic: No: Weakness Psychiatric: Positive: Suicidal Ideations, Disorder of Thought, No: Anxiety, Depression, Mood Disorder, Substance Abuse, Homicidal Ideation Endocrine: No: Polydipsia Hematologic/Lymphatic: No: Easy Bruising Physical Exam Narrative GENERAL: Well-nourished, well-developed patient. SKIN: Warm and dry. HEAD: Normocephalic and atraumatic. EYES: No scleral icterus. No injection or drainage. ENT: No nasal drainage noted. Mucous membranes pink. Airway patent. NECK: Supple, trachea midline. Moves head freely without obvious discomfort. CARDIOVASCULAR: Regular rate and rhythm without murmurs, gallops, or rubs. RESPIRATORY: Breath sounds equal bilaterally. No accessory muscle use. GASTROINTESTINAL: Abdomen soft, non-tender, nondistended. EXTREMITIES: No cyanosis or edema. BACK: Nontender without obvious deformity. No CVA tenderness. NEURO: Patient is alert and oriented. no sensorimotor deficits. Nonfocal. Normal speech. PSYCH: Positive auditory hallucinations Data Data Last Documented VS Vital Signs Date Time Temp Pulse Resp B/P (MAP) Pulse Ox O2 Delivery O2 Flow Rate FiO2 04/18/17 21:19 16 04/18/17 21:19 97 Room Air 04/18/17 20:57 98.1 69 138/88 (105) Orders Orders Electrocardiogram (04/18/17 21:01) Complete Blood Count With Diff (04/18/17 21:01) Basic Metabolic Panel (Bmp) (04/18/17 21:01) Ckmb (Isoenzyme) Profile (04/18/17 21:01) Troponin I (04/18/17 21:01) Chest, Single Ap (04/18/17 21:01) Iv Access Insert/Monitor (04/18/17 21:01) Ecg Monitoring (04/18/17 21:01) Oxygen Administration (04/18/17 21:01) Oximetry (04/18/17 21:01) Urinalysis - C+S If Indicated (04/18/17 21:01) Psych Screen (04/18/17 22:17) Labs Laboratory Tests Test 04/18/17 21:00 Urine Color LIGHT-YELLOW Urine Turbidity CLEAR Urine pH 7.5 Urine Specific [place] 1.005 Urine Protein NEG mg/dL Urine Glucose (UA) NEG mg/dL Urine Ketones NEG mg/dL Urine Occult Blood TRACE Urine Nitrite NEG Urine Bilirubin NEG Urine Urobilinogen LESS THAN 2.0 MG/DL Urine Leukocyte Esterase NEG Urine RBC 1 /hpf Urine WBC LESS THAN 1 /hpf Microscopic Urinalysis Comment CULT NOT INDICATED MDM Medical Decision Making Medical Screen Exam Complete: Yes Emergency Medical Condition: Yes Medical Record Reviewed: Yes Interpretation(s) Laboratory Tests Test 04/18/17 21:00 Urine Color LIGHT-YELLOW Urine Turbidity CLEAR Urine pH 7.5 Urine Specific [place] 1.005 Urine Protein NEG mg/dL Urine Glucose (UA) NEG mg/dL Urine Ketones NEG mg/dL Urine Occult Blood TRACE Urine Nitrite NEG Urine Bilirubin NEG Urine Urobilinogen LESS THAN 2.0 MG/DL Urine Leukocyte Esterase NEG Urine RBC 1 /hpf Urine WBC LESS THAN 1 /hpf Microscopic Urinalysis Comment CULT NOT INDICATED Differential Diagnosis MDM: High Differential diagnoses: Schizophrenia, schizoaffective disorder, bipolar, anxiety, depression, adjustment reaction, mood disorder NOS, ODD, depressive disorder NOS, dementia, dementia with agitation, psychosis NOS, substance induced mood disorder, DMDD, Asperger syndrome, infection,electrolyte abnormality, malingering. Narrative Course Mental health screening discussed with the patient. Psychiatric screen ordered. Diagnosis Primary Impression: Medical clearance for psychiatric admission Additional Impression: Paranoid schizophrenia Condition: Stable Marck Burris Apr 18, 2017 22:21
[2017-04-18 22:30] VITALS: BP 157/80; PULSE 54; RESP 18; TEMP 98.6; O2SAT 97
[2017-04-18 22:38] LABS: AUTOMATED NEUTROPHIL # 2.5 TH/MM3 (1.8-7.7); BASOPHIL % 0.8 % (0.0-2.0); EOSINOPHIL # 0.2 TH/MM3 (0-0.4); EOSINOPHIL % 3.2 % (0.0-4.0); HEMATOCRIT 42.2 % (39.0-51.0); HEMOGLOBIN 14.4 GM/DL (13.0-17.0); LYMPH % 36.3 % (9.0-44.0); MEAN CELL VOLUME 85.5 FL (80.0-100.0); MEAN CORPUSCULAR HEMOGLOBIN 29.1 PG (27.0-34.0); MEAN CORPUSCULAR HGB CONC 34.1 % (32.0-36.0); MEAN PLATELET VOLUME 8.3 FL (7.0-11.0); MONO % 12.9 % (0.0-8.0); MONOCYTE # 0.7 TH/MM3 (0-0.9); NEUT % 46.8 % (16.0-70.0); PLATELET COUNT 184 TH/MM3 (150-450); RED BLOOD COUNT 4.94 MIL/MM3 (4.50-5.90); RED CELL DISTRIBUTION WIDTH 13.7 % (11.6-17.2); WHITE BLOOD COUNT 5.4 TH/MM3 (4.0-11.0)
[2017-04-18 22:53] LABS: BICARBONATE 29.6 MEQ/L (21.0-32.0); BLOOD UREA NITROGEN 13 MG/DL (7-18); CALCIUM 9.7 MG/DL (8.5-10.1); CHLORIDE 106 MEQ/L (98-107); CREATININE 0.89 MG/DL (0.60-1.30); GLOMERULAR FILTRATION RATE 98 ML/MIN (>89); GLUCOSE,RANDOM 83 MG/DL (74-106); SODIUM (NA) 141 MEQ/L (136-145)
[2017-04-18 22:57] LABS: TROPONIN I LESS THAN 0.02 NG/ML (0.02-0.05)
[2017-04-18] MEDS ORDERED: DIVA500T3 PO (22:58)
[2017-04-18] MEDS ORDERED: BENZ0.5T PO (22:58)
[2017-04-18] MEDS ORDERED: MIRT45TA PO (22:58)
[2017-04-18] MEDS ORDERED: HALO10TA PO (22:58)
[2017-04-18] MEDS ORDERED: HALOPERIDOL LACTATE 5 MG/ML AMP IM ONE (23:00)
[2017-04-18] MEDS ORDERED: LORazepam 2 MG/ML VIAL IM ONE (23:00)
[2017-04-18] MEDS ORDERED: diphenhydrAMINE HCL 50 MG/ML VIAL IM ONE (23:15)
[2017-04-18] MEDS ORDERED: diphenhydrAMINE HCL 50 MG CAP - HS PRN PO (23:45)
[2017-04-18] MEDS ORDERED: BENZTROPINE MESYLATE 1 MG TAB PO PRN (23:45)
[2017-04-18] MEDS ORDERED: hydrOXYzine HCL 50 MG TAB PO PRN (23:45)
[2017-04-18] MEDS ORDERED: traZODone HCL 50 MG TAB PO PRN (23:45)
[2017-04-18] MEDS ORDERED: PILL SPLITTER OTHER PRN (23:45)
[2017-04-18] MEDS ORDERED: diphenhydrAMINE HCL 50 MG CAP PO PRN (23:45)
[2017-04-18] MEDS ORDERED: diphenhydrAMINE HCL 50 MG/ML VIAL IM PRN (23:45)
[2017-04-18] MEDS ORDERED: diphenhydrAMINE HCL 50 MG/ML VIAL - HS PRN IM (23:45)
[2017-04-18] MEDS ORDERED: LORazepam 2 MG/ML VIAL IM PRN (23:45)
[2017-04-18] MEDS ORDERED: BENZTROPINE MESYLATE 2 MG/2 ML VIAL IM PRN (23:45)
[2017-04-18] MEDS ORDERED: LORazepam 1 MG TAB PO PRN (23:45)
[2017-04-18] MEDS ORDERED: MAGNESIUM HYDROXIDE SUSP 30 ML CUP PO PRN (23:45)
[2017-04-18] MEDS ORDERED: ALUMINUM/MAGNESIUM/SIMETH 30 ML CUP PO PRN (23:45)
[2017-04-18 23:50] VITALS: BP 132/82; PULSE 73; RESP 18; TEMP 97.6; O2SAT 95
[2017-04-19 05:37] VITALS: BP 119/68; PULSE 64; RESP 18; TEMP 97.3; O2SAT 97
[2017-04-19] MEDS: NICOTINE 21 MG/24 HR PATCH T-DERMAL SCH (08:34)
[2017-04-19] MEDS: BENZTROPINE MESYLATE 1 MG TAB PO SCH ×3 (08:34→17:10)
[2017-04-19] MEDS ORDERED: HALOPERIDOL 2 MG TAB PO SCH ×2 (09:00→13:00)
[2017-04-19] MEDS ORDERED: DIVALPROEX SODIUM E.R. 500 MG TAB PO SCH (09:00)
[2017-04-19] MEDS ORDERED: HALOPERIDOL DECANOATE 50 MG/ML VIAL IM SCH (12:45)
[2017-04-19] MEDS ORDERED: BENZTROPINE MESYLATE 1 MG TAB PO SCH (13:00)
--- NOTE | 2017-04-19 13:07 | HHI.HP ---
Provisional Diagnosis Admission Date Apr 18, 2017 at 23:24 [place] I. Schizoaffective disorder depressed type f 25.1 Certification of Person's Competence To Provide Express and Informed Consent I have personally examined Konstantin Peterson , a person being served at [facility] on, Apr 19, 2017 12:55. Express and informed consent means consent voluntarily given in writing, by a competent person, after sufficient explanation and disclosure of the subject matter involved to enable the person to make a knowing and willful decision without any element of force, fraud, deceit, duress, or other form of constraint or coercion. This person is 18 years of age or older, is not now known to be incompetent to consent to treatment with a guardian advocate, and does not have a health care surrogate or proxy currently making medical treatment decisions. I have found this person to be one of the following: [] Competent to provide express and informed consent, as defined above, for voluntary admission to this facility and is competent to provide express and informed consent for treatment. He/she has the consistent capacity to make well reasoned, willful, and knowing decisions concerning his or her medical or mental health treatment. The person fully and consistently understands the purpose of the admission for examination/placement and is fully capable of personally exercising all rights assured [place] Incompetent to provide express and informed consent to voluntary admission, and this is incompetent to provide express and informed consent to treatment. The person must be transferred to involuntary status and a petition for a guardian advocate filed with the Circuit Court. []xxx Refusing to provide express and informed consent to voluntary admission but is competent to provide express and informed consent for treatment. The person must be discharged or transferred to involuntary status. Form shall be completed within 24 hours of a person's arrival at the receiving facility and filed in the clinical record of each person: 1. Admitted on a voluntary basis 2. Permitted to provide express and informed consent to his/her own treatment 3. Allowed to transfer from involuntary to voluntary status 4. Prior to permitting a person to consent to his or her own treatment after having been previously found incompetent to consent to treatment. History of Present Illness Capacity: Lacks Capacity (patient less compared to sign for hospitalization has capacity sign for medication) HPI Patient is a 31-year-old male well-known post multiple prior contacts comes here from his assisted under Baumann act some resolution [facility]'s office dated 04/18/17 at 074 9 PM the document reviewed and agreed with it is essentially states subject was causing a disturbance at the residents is responded patient stated he wanted to seek help he made suicidal statements stating he wanted to kill himself listers taken into protective custody Baumann act. Patient seen and screened in the emergency department urine toxicology negative Depakote blood level LXVI. Patient seen in his room with nurse Elizabeth, is lying in bed napping, but easily arousable. Patient did recognize me from his prior hospitalization a about 2-3 weeks ago. He states she's had increase auditory hallucinations with paranoia anger and irritability. He focuses somewhat on another resident and that that resident teases him. At this time patient does meet criteria for acute inpatient psychiatric hospitalization on the Baumann act I'll do first opinion request second opinion. I feel he has capacity to sign for his medications. We will continue his medications this Depakote Remeron Haldol and Cogentin. Hopeless be fairly short stay. We need to contact the assisted see if they're willing to have him return once he is stabilized Review of Systems Constitutional: DENIES: Diaphoretic episodes, Fatigue, Fever, Weight gain, Weight loss, Chills, Dizziness, Change in appetite, Night Sweats Endocrine: DENIES: Heat/cold intolerance, Polydipsia, Polyuria, Polyphagia Eyes: DENIES: Blurred vision, Diplopia, Eye inflammation, Eye pain, Vision loss , Photosensitivity, Double Vision Ears, nose, mouth, throat: DENIES: Tinnitus, Hearing loss, Vertigo, Nasal discharge, Oral lesions, Throat pain, Hoarseness, Ear Pain, Running Nose, Epistaxis, Sinus Pain, Toothache, Odynophagia Respiratory: DENIES: Apneas, Cough, Snoring, Wheezing, Hemoptysis, Sputum production, Shortness of breath Cardiovascular: DENIES: Chest pain, Palpitations, Syncope, Dyspnea on Exertion , PND, Lower Extremity Edema, Orthopnea, Claudication Gastrointestinal: DENIES: Abdominal pain, Black stools, Bloody stools, Constipation, Diarrhea, Nausea, Vomiting, Difficulty Swallowing, Anorexia Genitourinary: DENIES: Sexual dysfunction, Urinary frequency, Urinary incontinence, Urgency, Hematuria, Dysuria, Nocturia, Penile Discharge, Testicular Pain, Testicular Swelling Musculoskeletal: DENIES: Joint pain, Muscle aches, Stiffness, Joint Swelling, Back pain, Neck pain Integumentary: DENIES: Abnormal pigmentation, Nail changes, Pruritus, Rash Hematologic/lymphatic: DENIES: Bruising, Lymphadenopathy Immunologic/allergic: DENIES: Eczema, Urticaria Neurologic: DENIES: Abnormal gait, Headache, Localized weakness, Paresthesias, Seizures, Speech Problems, Tremor, Poor Balance Psychiatric: COMPLAINS OF: Anxiety, Hallucinations, Agitation, Suicidal Ideation (vague), Delusions Past Psych History Psychological trauma history Patient denies Violence risk - others (6 mos) Low to medium Violence risk - self (6 mos) Low to medium Substance Abuse History Drugs/Alcohol past 12 months Denies Past Family Social History Coded Allergies: No Known Allergies (Verified Allergy, Unknown, 04/18/17) Active Scripts Divalproex DR (Divalproex DR) 250 Mg Tabdr, 1000 MG PO 2 hs for Mental Health for 15 Days, #60 TAB 0 Refills Prov:Anthony Boswell MD 04/05/17 Fluticasone Nasal [place] (Fluticasone Nasal [place]) 50 Mcg/Act Naspr, 50 MCG EACH NARE BID for Allergy Management, #1 BOTTLE 0 Refills 50 mcg/spray Prov:Anthony Boswell MD 04/05/17 Reported Medications Divalproex ER (Divalproex ER) 500 Mg Tab, 500 MG PO DAILY for Control Seizures, #30 TAB 0 Refills 04/18/17 Mirtazapine (Mirtazapine) 45 Mg Tab, 45 MG PO HS for Depression Control, #30 TAB 0 Refills 04/18/17 Haloperidol (Haloperidol) 10 Mg Tab, 12 MG PO TID, TAB 0 Refills 04/18/17 Benztropine (Benztropine) 0.5 Mg Tab, 0.5 MG PO TID, #60 TAB 0 Refills 04/18/17 Haloperidol Decanoate Inj (Haldol Decanoate Inj) 100 Mg/Ml Inj, 100 MG IM Q28D for Schizophrenia, #1 VIAL 0 Refills 08/30/16 Discontinued Scripts Multivitamin with Folic Acid (Thera Tablet) 400 Mcg Tablet, 1 TAB PO DAILY for health, #30 TAB 0 Refills Prov:Anthony Boswell MD 04/05/17 Levocarnitine Liq (Carnitor Liq) 1 Gm/10 Ml Soln, 3 ML PO TID for Hyperammonemia for 15 Days, #1 BOTTLE 0 Refills Prov:Anthony Boswell MD 04/05/17 Haloperidol (Haloperidol) 10 Mg Tab, 10 MG PO TID for Mental Health, #90 TAB 0 Refills Be sure to get your next Haldol Decanoate injection as scheduled. Prov:Anthony Boswell MD 04/05/17 Mirtazapine (Mirtazapine) 15 Mg Tab, 30 MG PO 2 hs for Mental Health, #60 TAB 1 Refill Prov:Anthony Boswell MD 04/05/[address] (Divalproex DR) 500 Mg Tabdr, 500 MG PO BID@0900,1500 for Mental Health for 15 Days, #60 TAB 0 Refills Prov:Anthony Boswell MD 04/05/17 Benztropine (Benztropine) 0.5 Mg Tab, 0.5 MG PO BID for Side effect management for 15 Days, #60 TAB 0 Refills Prov:Anthony Boswell MD 04/05/17 Lorazepam (Ativan) 0.5 Mg Tab, 0.5 MG PO Q6H Y for ANXIETY AND/OR AGITATION, # 30 TAB 0 Refills Prov:Anthony Boswell MD 04/05/17 Current Medications Medications (Trade) Dose Ordered Sig/[place] Route Start Time Stop Time Status Last Admin (Haldol) 10 mg TID PO 04/19/17 09:00 Future Hold (Haldol) 2 mg TID PO 04/19/17 09:00 Future Hold (Remeron) 45 mg HS PO 04/19/17 21:00 Future Hold (Depakote Er) 500 mg DAILY PO 04/19/17 09:00 Future Hold (Cogentin) 0.5 mg TID PO 04/19/17 09:00 (Pill Splitter) 1 ea UNSCH PRN OTHER 04/18/17 23:45 (Ativan) 1 mg Q6H PRN PO 04/18/17 23:45 Future Hold (Ativan Inj) 1 mg Q6H PRN IM 04/18/17 23:45 Future Hold (Atarax) 50 mg Q6H PRN PO 04/18/17 23:45 Future Hold (Benadryl) 50 mg Q6H PRN PO 04/18/17 23:45 Future Hold (Benadryl Inj) 50 mg Q6H PRN IM 04/18/17 23:45 Future Hold (Cogentin) 1 mg Q12H PRN PO 04/18/17 23:45 (Cogentin Inj) 1 mg Q12H PRN IM 04/18/17 23:45 (Benadryl) 50 mg HS PRN PO 04/18/17 23:45 Future Hold (Benadryl Inj) 50 mg HS PRN IM 04/18/17 23:45 Future Hold (Desyrel) 50 mg HS PRN PO 04/18/17 23:45 Future Hold (Tylenol) 650 mg Q4H PRN PO 04/18/17 23:45 (Milk Of Magnesia Liq) 30 ml DAILY PRN PO 04/18/17 23:45 (Mag-Al Plus Susp Liq) 30 ml Q6H PRN PO 04/18/17 23:45 (Habitrol 21 Mg Patch.24 Hr) 1 patch DAILY T-DERMAL 04/19/17 09:00 Miscellaneous Information 1 HS T-DERMAL 04/19/17 21:00 (Depakote Dr) 1,000 mg HS PO 04/19/17 21:00 Future Hold Family Psych History Patient has brother who is also mentally ill Social History Patient is single lives in assisted Patient's Strengths (min. 2) Patient verbal able access healthcare Physical Exam Patient seen screened in ED exam reviewed and agreed with, patient sitting quietly in his room he is in no acute distress, he is in no respiratory distress. No complaints of abdominal pain. Patient moves all 4 extremities without difficulty, no abnormal motor movements noted Vital Signs Vital Signs Date Time Temp Pulse Resp B/P (MAP) Pulse Ox O2 Delivery O2 Flow Rate FiO2 04/19/17 05:37 97.3 64 18 119/68 (85) 97 04/18/17 22:30 Room Air Lab Results Test 04/18/17 21:00 04/18/17 21:50 Urine Color LIGHT-YELLOW Urine Turbidity CLEAR Urine pH 7.5 Urine Specific [place] 1.005 Urine Protein NEG mg/dL Urine Glucose (UA) NEG mg/dL Urine Ketones NEG mg/dL Urine Occult Blood TRACE Urine Nitrite NEG Urine Bilirubin NEG Urine Urobilinogen LESS THAN 2.0 MG/DL Urine Leukocyte Esterase NEG Urine RBC 1 /hpf Urine WBC LESS THAN 1 /hpf Microscopic Urinalysis Comment CULT NOT INDICATED Urine Opiates Screen NEG Urine Barbiturates Screen NEG Urine Amphetamines Screen NEG Urine Benzodiazepines Screen NEG Urine Cocaine Screen NEG Urine Cannabinoids Screen NEG White Blood Count 5.4 TH/MM3 Red Blood Count 4.94 MIL/MM3 Hemoglobin 14.4 GM/DL Hematocrit 42.2 % Mean Corpuscular Volume 85.5 FL Mean Corpuscular Hemoglobin 29.1 PG Mean Corpuscular Hemoglobin Concent 34.1 % Red Cell Distribution Width 13.7 % Platelet Count 184 TH/MM3 Mean Platelet Volume 8.3 FL Neutrophils (%) (Auto) 46.8 % Lymphocytes (%) (Auto) 36.3 % Monocytes (%) (Auto) 12.9 % Eosinophils (%) (Auto) 3.2 % Basophils (%) (Auto) 0.8 % Neutrophils # (Auto) 2.5 TH/MM3 Lymphocytes # (Auto) 2.0 TH/MM3 Monocytes # (Auto) 0.7 TH/MM3 Eosinophils # (Auto) 0.2 TH/MM3 Basophils # (Auto) 0.0 TH/MM3 CBC Comment DIFF FINAL Differential Comment Blood Urea Nitrogen 13 MG/DL Creatinine 0.89 MG/DL Random Glucose 83 MG/DL Calcium Level 9.7 MG/DL Sodium Level 141 MEQ/L Potassium Level 4.0 MEQ/L Chloride Level 106 MEQ/L Carbon Dioxide Level 29.6 MEQ/L Anion Gap 5 MEQ/L Estimat Glomerular Filtration Rate 98 ML/MIN Total Creatine Kinase 257 U/L Creatine Kinase MB 1.6 NG/ML Troponin I LESS THAN 0.02 NG/ML Valproic Acid (Depakene) Level 66 MCG/ML Ethyl Alcohol Level LESS THAN 3 MG/DL Mental Status Examination Appearance: Appropriate, Disheveled Consciousness: Alert Orientation: Person, Place, Date/Time Motor Activity: Normal gait Speech: Hesitant, Slow Language: Other (somewhat limited) Fund of Knowledge: Inadequate Attention and Concentration: Easily Distracted Memory: Impaired Mood: Sad, Irritable (mildly) Affect: Other (decreased range and intensity) Thought Process & Associations: Disorganized Thought Content: Bizarre thinking Hallucination Type: Auditory (vague auditory) Delusion Type: Paranoid Suicidal Ideation: Yes (vague) Suicidal Plan: Yes Suicidal Intention: Yes (vague) Homicidal Ideation: No Homicidal Plan: No Homicidal Intention: No Insight: Poor Judgment: Poor Assessment & Plan Problem List: (1) Schizoaffective disorder, depressive type ICD Codes: F25.1 - Schizoaffective disorder, depressive type Assessment & Plan Estimated LOS 5-7: days patient remained psychotic delusional and depressed. Will restart medications presently med conciliation. Adjust medications accordingly Discharge Planning Hopefully to return to his prior assisted Request HC Surrog/Guard Advoc?: No Anthony Boswell MD Apr 19, 2017 13:07
[2017-04-19 14:55] LABS: BICARBONATE 29.9 MEQ/L (21.0-32.0); BLOOD UREA NITROGEN 10 MG/DL (7-18); CALCIUM 9.1 MG/DL (8.5-10.1); CHLORIDE 103 MEQ/L (98-107); CREATININE 0.88 MG/DL (0.60-1.30); GLOMERULAR FILTRATION RATE 100 ML/MIN (>89); GLUCOSE,RANDOM 92 MG/DL (74-106); SODIUM (NA) 139 MEQ/L (136-145)
[2017-04-19 14:56] LABS: CHOLESTEROL 142 MG/DL (120-200); TRIGLYCERIDES 179 MG/DL (42-150)
[2017-04-19 14:58] LABS: CHOLESTEROL/ HDL RATIO 3.76 RATIO; HDL CHOLESTEROL 37.7 MG/DL (40.0-60.0); LDL CHOLESTEROL 69 MG/DL (0-99)
[2017-04-19 16:04] VITALS: BP 122/60; PULSE 57; RESP 16; TEMP 97.6; O2SAT 99
[2017-04-19 16:50] LABS: HEMOGLOBIN A1C 5.2 % (4.3-6.0)
[2017-04-19 18:00] VITALS: BP 122/66; PULSE 57; RESP 15; TEMP 97.6; O2SAT 99
[2017-04-19] MEDS ORDERED: HALOPERIDOL 5 MG TAB PO ONE (18:15)
--- NOTE | 2017-04-19 19:43 | EKG ---
Date Performed: 04/18/2017 Time Performed: 21:01:12 PTAGE: 31 years EKG: Sinus rhythm INDETERMINATE AXIS EARLY REPOLARIZATION Since previous tracing, no significant change noted BORDERLI NE ECG PREVIOUS TRACING : 04/02/2017 07.28.14 DOCTOR: Kristian Marlow Interpretating Date/Time 04/19/2017 19:42:00
[2017-04-19] MEDS ORDERED: DIVALPROEX SODIUM DELAYED RELEASE 250 MG TAB PO SCH (21:00)
[2017-04-19] MEDS ORDERED: MIRTAZAPINE 15 MG TAB PO SCH (21:00)
[2017-04-19] MEDS: REMOVE OLD NICOTINE PATCH T-DERMAL SCH (21:00)
[2017-04-19] MEDS: DIVALPROEX SODIUM DELAYED RELEASE 250 MG TAB PO SCH (21:04)
[2017-04-19] MEDS: MIRTAZAPINE 15 MG TAB PO SCH (21:05)
[2017-04-20 06:06] VITALS: BP 135/63; PULSE 58; RESP 17; TEMP 98.2; O2SAT 97
[2017-04-20] MEDS ORDERED: NICOTINE 21 MG/24 HR PATCH T-DERMAL SCH (09:00)
[2017-04-20] MEDS: NICOTINE 21 MG/24 HR PATCH T-DERMAL SCH (09:00)
[2017-04-20] MEDS: BENZTROPINE MESYLATE 1 MG TAB PO SCH ×3 (09:12→18:56)
[2017-04-20] MEDS: DIVALPROEX SODIUM E.R. 500 MG TAB PO SCH (09:12)
[2017-04-20] MEDS: FLUTICASONE PROPIONATE 50 MCG/ACT 16 GM NASAL SPRAY EACH NARE SCH (09:12)
--- NOTE | 2017-04-20 13:10 | PD.PSY.CON ---
Provisional Diagnosis Admission Date Apr 18, 2017 at 23:24 [place] I. Schizoaffective disorder depressed type f 25.1 History of Present Illness Service Psychiatry Consult Requested By Dr. Boswell Reason for Consult Second opinion Primary Care Physician Unknown HPI Patient is a 31-year-old male well-known post multiple prior contacts comes here from his retirement under Baumann act some resolution [facility] office dated 04/18/17 at 074 9 PM the document reviewed and agreed with it is essentially states subject was causing a disturbance at the residents is responded patient stated he wanted to seek help he made suicidal statements stating he wanted to kill himself listers taken into protective custody Baumann act. Patient seen and screened in the emergency department urine toxicology negative Depakote blood level LXVI. Patient seen in his room with nurse Elizabeth, is lying in bed napping, but easily arousable. Patient did recognize me from his prior hospitalization a about 2-3 weeks ago. He states she's had increase auditory hallucinations with paranoia anger and irritability. He focuses somewhat on another resident and that that resident teases him. At this time patient does meet criteria for acute inpatient psychiatric hospitalization on the Baumann act I'll do first opinion request second opinion. I feel he has capacity to sign for his medications. We will continue his medications this Depakote Remeron Haldol and Cogentin. Hopeless be fairly short stay. We need to contact the retirement see if they're willing to have him return once he is stabilized. The patient is a 31 year-old man, domiciled in a retirement in [place], single, unemployed, with extensive psychiatric history of schizoaffective disorder, poor impulse control disorder, intellectual disability, very well known by our service, multiple psychiatric hospitalizations, no significant medical history, who was brought on the Baumann act because patient may suicidal statements to kill himself in his residence. Patient was consulted to me for second opinion. On my evaluation the patient is found calm, cooperative, and his way to group activities. He says that he is feeling much better today. He says that he was brought here because he was feeling persistent desire to kill himself, "but not now". At this moment the patient denies suicidal and homicidal ideation, he denies visual and auditory hallucinations. He is oriented 3. Review of Systems Constitutional: DENIES: Diaphoretic episodes, Fatigue, Fever, Weight gain, Weight loss, Chills, Dizziness, Change in appetite, Night Sweats Endocrine: DENIES: Heat/cold intolerance, Polydipsia, Polyuria, Polyphagia Eyes: DENIES: Blurred vision, Diplopia, Eye inflammation, Eye pain, Vision loss , Photosensitivity, Double Vision Ears, nose, mouth, throat: DENIES: Tinnitus, Hearing loss, Vertigo, Nasal discharge, Oral lesions, Throat pain, Hoarseness, Ear Pain, Running Nose, Epistaxis, Sinus Pain, Toothache, Odynophagia Respiratory: DENIES: Apneas, Cough, Snoring, Wheezing, Hemoptysis, Sputum production, Shortness of breath Cardiovascular: DENIES: Chest pain, Palpitations, Syncope, Dyspnea on Exertion , PND, Lower Extremity Edema, Orthopnea, Claudication Gastrointestinal: DENIES: Abdominal pain, Black stools, Bloody stools, Constipation, Diarrhea, Nausea, Vomiting, Difficulty Swallowing, Anorexia Musculoskeletal: DENIES: Joint pain, Muscle aches, Stiffness, Joint Swelling, Back pain, Neck pain Integumentary: DENIES: Abnormal pigmentation, Nail changes, Pruritus, Rash Hematologic/lymphatic: DENIES: Bruising, Lymphadenopathy Immunologic/allergic: DENIES: Eczema, Urticaria Neurologic: DENIES: Abnormal gait, Headache, Localized weakness, Paresthesias, Seizures, Speech Problems, Tremor, Poor Balance Psychiatric: DENIES: Anxiety, Confusion, Mood changes, Depression, Hallucinations, Agitation, Suicidal Ideation, Homicidal Ideation, Delusions Past Family Social History Coded Allergies: No Known Allergies (Verified Allergy, Unknown, 04/18/17) Active Scripts Divalproex DR (Divalproex DR) 250 Mg Tabdr, 1000 MG PO 2 hs for Mental Health for 15 Days, #60 TAB 0 Refills Prov:Anthony Boswell MD 04/05/17 Fluticasone Nasal [place] (Fluticasone Nasal [place]) 50 Mcg/Act Naspr, 50 MCG EACH NARE BID for Allergy Management, #1 BOTTLE 0 Refills 50 mcg/spray Prov:Anthony Boswell MD 04/05/17 Reported Medications Divalproex ER (Divalproex ER) 500 Mg Tab, 500 MG PO DAILY for Control Seizures, #30 TAB 0 Refills 04/18/17 Mirtazapine (Mirtazapine) 45 Mg Tab, 45 MG PO HS for Depression Control, #30 TAB 0 Refills 04/18/17 Haloperidol (Haloperidol) 10 Mg Tab, 12 MG PO TID, TAB 0 Refills 04/18/17 Benztropine (Benztropine) 0.5 Mg Tab, 0.5 MG PO TID, #60 TAB 0 Refills 04/18/17 Haloperidol Decanoate Inj (Haldol Decanoate Inj) 100 Mg/Ml Inj, 100 MG IM Q28D for Schizophrenia, #1 VIAL 0 Refills 08/30/16 Discontinued Scripts Multivitamin with Folic Acid (Thera Tablet) 400 Mcg Tablet, 1 TAB PO DAILY for health, #30 TAB 0 Refills Prov:Anthony Boswell MD 04/05/17 Levocarnitine Liq (Carnitor Liq) 1 Gm/10 Ml Soln, 3 ML PO TID for Hyperammonemia for 15 Days, #1 BOTTLE 0 Refills Prov:Anthony Boswell MD 04/05/17 Haloperidol (Haloperidol) 10 Mg Tab, 10 MG PO TID for Mental Health, #90 TAB 0 Refills Be sure to get your next Haldol Decanoate injection as scheduled. Prov:Anthony Boswell MD 04/05/17 Mirtazapine (Mirtazapine) 15 Mg Tab, 30 MG PO 2 hs for Mental Health, #60 TAB 1 Refill Prov:Anthony Boswell MD 04/05/[address] (Divalproex DR) 500 Mg Tabdr, 500 MG PO BID@0900,1500 for Mental Health for 15 Days, #60 TAB 0 Refills Prov:Anthony Boswell MD 04/05/17 Benztropine (Benztropine) 0.5 Mg Tab, 0.5 MG PO BID for Side effect management for 15 Days, #60 TAB 0 Refills Prov:Anthony Boswell MD 04/05/17 Lorazepam (Ativan) 0.5 Mg Tab, 0.5 MG PO Q6H Y for ANXIETY AND/OR AGITATION, # 30 TAB 0 Refills Prov:Anthony Boswell MD 04/05/17 Current Medications Medications (Trade) Dose Ordered Sig/[place] Route Start Time Stop Time Status Last Admin (Haldol) 10 mg TID PO 04/19/17 09:00 Future Hold (Remeron) 45 mg HS PO 04/19/17 21:00 Future Hold (Depakote Er) 500 mg DAILY PO 04/19/17 09:00 Future Hold (Cogentin) 0.5 mg TID PO 04/19/17 09:00 04/20/17 09:12 (Pill Splitter) 1 ea UNSCH PRN OTHER 04/18/17 23:45 (Ativan) 1 mg Q6H PRN PO 04/18/17 23:45 Future Hold (Ativan Inj) 1 mg Q6H PRN IM 04/18/17 23:45 Future Hold (Atarax) 50 mg Q6H PRN PO 04/18/17 23:45 Future Hold (Benadryl) 50 mg Q6H PRN PO 04/18/17 23:45 Future Hold (Benadryl Inj) 50 mg Q6H PRN IM 04/18/17 23:45 Future Hold (Cogentin) 1 mg Q12H PRN PO 04/18/17 23:45 (Cogentin Inj) 1 mg Q12H PRN IM 04/18/17 23:45 (Benadryl) 50 mg HS PRN PO 04/18/17 23:45 Future Hold (Benadryl Inj) 50 mg HS PRN IM 04/18/17 23:45 Future Hold (Desyrel) 50 mg HS PRN PO 04/18/17 23:45 Future Hold (Tylenol) 650 mg Q4H PRN PO 04/18/17 23:45 (Milk Of Magnesia Liq) 30 ml DAILY PRN PO 04/18/17 23:45 04/19/17 21:04 (Mag-Al Plus Susp Liq) 30 ml Q6H PRN PO 04/18/17 23:45 (Habitrol 21 Mg Patch.24 Hr) 1 patch DAILY T-DERMAL 04/19/17 09:00 Miscellaneous Information 1 HS T-DERMAL 04/19/17 21:00 (Depakote Dr) 1,000 mg HS PO 04/19/17 21:00 Future Hold (Depakote Dr) 1,000 mg HS PO 04/19/17 21:00 04/19/17 21:04 (Depakote Er) 500 mg DAILY PO 04/20/17 09:00 04/20/17 09:12 (Flonase [place] Spr) 1 spray BID EACH NARE 04/19/17 21:00 04/20/17 09:12 (Haldol Decanoate Inj) 100 mg Q28D IM 04/19/17 12:45 (Remeron) 45 mg HS PO 04/19/17 21:00 04/19/17 21:05 Patient's Strengths (min. 2) Patient verbal able access healthcare Physical Exam Vital Signs Vital Signs Date Time Temp Pulse Resp B/P (MAP) Pulse Ox O2 Delivery O2 Flow Rate FiO2 04/20/17 06:06 98.2 58 17 135/63 (87) 97 04/18/17 22:30 Room Air I/O 04/20/17 04/20/17 04/21/17 08:00 16:00 00:00 Intake Total 480 ml Balance 480 ml Lab Results Test 04/19/17 13:51 Blood Urea Nitrogen 10 MG/DL Creatinine 0.88 MG/DL Random Glucose 92 MG/DL Calcium Level 9.1 MG/DL Sodium Level 139 MEQ/L Potassium Level 3.5 MEQ/L Chloride Level 103 MEQ/L Carbon Dioxide Level 29.9 MEQ/L Anion Gap 6 MEQ/L Estimat Glomerular Filtration Rate 100 ML/MIN Hemoglobin A1c 5.2 % Triglycerides Level 179 MG/DL Cholesterol Level 142 MG/DL LDL Cholesterol 69 MG/DL HDL Cholesterol 37.7 MG/DL Cholesterol/HDL Ratio 3.76 RATIO Mental Status Examination Appearance: Appropriate, Disheveled Consciousness: Alert Orientation: Person, Place, Date/Time Motor Activity: Normal gait Speech: Hesitant, Slow Language: Other (somewhat limited) Fund of Knowledge: Inadequate Attention and Concentration: Easily Distracted Memory: Impaired Mood: Sad, Irritable (mildly) Affect: Other (decreased range and intensity) Thought Process & Associations: Disorganized Thought Content: Bizarre thinking Hallucination Type: Auditory (vague auditory) Delusion Type: Paranoid Suicidal Ideation: No Suicidal Plan: No Suicidal Intention: No Homicidal Ideation: No Homicidal Plan: No Homicidal Intention: No Insight: Fair Judgment: Impulsive Assessment & Plan Problem List: (1) Schizoaffective disorder, depressive type ICD Codes: F25.1 - Schizoaffective disorder, depressive type Assessment & Plan: I have seen and examined this patient, reviewed the documentation, I agree and concur with Dr. Boswell's assessment and plan. Assessment & Plan Estimated LOS: days Request HC Surrog/Guard Advoc?: No Shaggy García MD Apr 20, 2017 13:10
--- NOTE | 2017-04-20 13:13 | HHI.PYPN ---
Subjective Remarks Patient seen in [facility] with nurse Merle, chart review, patient compliant medications. Patient really very sad face at this time with minimal eye contact. States he continues depressed and suicidal, stating that he is still being quite trouble with the auditory hallucinations. Patient is able to contracted to no harm at the present time while on the unit. Will discontinue the at bedtime trazodone in order Zyprexa 10 mg at at bedtime. We did ended all the orders removing the whole orders. For now continue treatment Review of Systems Except as stated in HPI: all other systems reviewed are Neg Mental Status Examination Appearance: Appropriate, Disheveled Consciousness: Alert Orientation: Person, Place, Date/Time Motor Activity: Normal gait Speech: Hesitant, Slow Language: Other (somewhat limited) Fund of Knowledge: Inadequate Attention and Concentration: Easily Distracted Memory: Impaired Mood: Sad, Irritable (mildly) Affect: Other (decreased range and intensity) Thought Process & Associations: Disorganized Thought Content: Bizarre thinking Hallucination Type: Auditory (vague auditory) Delusion Type: Paranoid Suicidal Ideation: No Suicidal Plan: No Suicidal Intention: No Homicidal Ideation: No Homicidal Plan: No Homicidal Intention: No Insight: Fair Judgment: Impulsive Results Labs Test 04/19/17 13:51 Blood Urea Nitrogen 10 MG/DL Creatinine 0.88 MG/DL Random Glucose 92 MG/DL Calcium Level 9.1 MG/DL Sodium Level 139 MEQ/L Potassium Level 3.5 MEQ/L Chloride Level 103 MEQ/L Carbon Dioxide Level 29.9 MEQ/L Anion Gap 6 MEQ/L Estimat Glomerular Filtration Rate 100 ML/MIN Hemoglobin A1c 5.2 % Triglycerides Level 179 MG/DL Cholesterol Level 142 MG/DL LDL Cholesterol 69 MG/DL HDL Cholesterol 37.7 MG/DL Cholesterol/HDL Ratio 3.76 RATIO Vitals/IOs Vital Signs Date Time Temp Pulse Resp B/P (MAP) Pulse Ox O2 Delivery O2 Flow Rate FiO2 04/20/17 06:06 98.2 58 17 135/63 (87) 97 04/18/17 22:30 Room Air Intake and Output 04/20/17 04/20/17 04/21/17 08:00 16:00 00:00 Intake Total 480 ml Balance 480 ml Assessment & Plan Problem List: (1) Schizoaffective disorder, depressive type ICD Codes: F25.1 - Schizoaffective disorder, depressive type Assessment & Plan Estimated LOS: days patient Jaspal psychotic seen medication adjustments above Justification for Cont. Inpt. At this time patient decompensated placed a lower level of care Discharge Planning Discharge may be difficult patient continues to demand a change in his placement Request HC Surrog/Guard Advoc?: No Anthony Boswell MD Apr 20, 2017 13:13
[2017-04-20] MEDS: HALOPERIDOL 10 MG TAB PO SCH ×2 (14:08→18:56)
[2017-04-20 18:49] VITALS: BP 147/81; PULSE 87; RESP 18; TEMP 97.8; O2SAT 96
[2017-04-20 18:51] VITALS: BP 147/81; PULSE 87; RESP 18; TEMP 97.8; O2SAT 96
[2017-04-20] MEDS: REMOVE OLD NICOTINE PATCH T-DERMAL SCH (21:00)
[2017-04-20] MEDS: DIVALPROEX SODIUM DELAYED RELEASE 250 MG TAB PO SCH (21:01)
[2017-04-20] MEDS: MIRTAZAPINE 15 MG TAB PO SCH (21:02)
[2017-04-20] MEDS: OLANZapine 10 MG TAB PO SCH (21:02)
[2017-04-21 06:00] VITALS: BP 142/83; PULSE 58; RESP 15; RESP 16; TEMP 98; O2SAT 98
[2017-04-21] MEDS: NICOTINE 21 MG/24 HR PATCH T-DERMAL SCH (09:00)
[2017-04-21] MEDS: FLUTICASONE PROPIONATE 50 MCG/ACT 16 GM NASAL SPRAY EACH NARE SCH ×2 (09:14→21:28)
[2017-04-21] MEDS: BENZTROPINE MESYLATE 1 MG TAB PO SCH ×3 (09:14→17:12)
[2017-04-21] MEDS: HALOPERIDOL 10 MG TAB PO SCH ×3 (09:14→17:11)
[2017-04-21] MEDS: DIVALPROEX SODIUM E.R. 500 MG TAB PO SCH (09:14)
--- NOTE | 2017-04-21 13:50 | HHI.PYPN ---
Subjective Remarks Patient seen in [facility] of floor staff, patient calm more cooperative today states voices are going away. He now states would be willing to return to his [facility]. At this time I feel that he does have capacity lift Baumann act allow her to sign voluntary. For now continue treatment Review of Systems Except as stated in HPI: all other systems reviewed are Neg Mental Status Examination Appearance: Appropriate, Disheveled Consciousness: Alert Orientation: Person, Place, Date/Time Motor Activity: Normal gait Speech: Hesitant, Slow Language: Other (somewhat limited) Fund of Knowledge: Inadequate Attention and Concentration: Easily Distracted Memory: Impaired Mood: Sad, Irritable (mildly) Affect: Other (decreased range and intensity) Thought Process & Associations: Disorganized Thought Content: Bizarre thinking Hallucination Type: Auditory (vague auditory) Delusion Type: Paranoid Suicidal Ideation: No Suicidal Plan: No Suicidal Intention: No Homicidal Ideation: No Homicidal Plan: No Homicidal Intention: No Insight: Fair Judgment: Impulsive Results Vitals/IOs Vital Signs Date Time Temp Pulse Resp B/P (MAP) Pulse Ox O2 Delivery O2 Flow Rate FiO2 04/21/17 06:00 98.0 58 16 142/83 (102) 98 04/18/17 22:30 Room Air Assessment & Plan Problem List: (1) Schizoaffective disorder, depressive type ICD Codes: F25.1 - Schizoaffective disorder, depressive type Assessment & Plan Estimated LOS: days patient continues psychotic but improving, for now I feel patient does have capacity will lift Baumann act allow patient to sign voluntary Justification for Cont. Inpt. At this time patient will decompensate a placed a lower level of care Discharge Planning Probable return to fci Request HC Surrog/Guard Advoc?: No Anthony Boswell MD Apr 21, 2017 13:50
[2017-04-21 19:29] VITALS: BP 133/78; PULSE 61; RESP 16; TEMP 97.7; O2SAT 98
[2017-04-21] MEDS: MIRTAZAPINE 15 MG TAB PO SCH (20:21)
[2017-04-21] MEDS: OLANZapine 10 MG TAB PO SCH (20:21)
[2017-04-21] MEDS: DIVALPROEX SODIUM DELAYED RELEASE 250 MG TAB PO SCH (20:21)
[2017-04-21] MEDS: REMOVE OLD NICOTINE PATCH T-DERMAL SCH (21:00)
[2017-04-22 05:40] VITALS: BP 125/76; PULSE 59; RESP 16; TEMP 97.6
[2017-04-22] MEDS: NICOTINE 21 MG/24 HR PATCH T-DERMAL SCH (09:00)
[2017-04-22] MEDS: FLUTICASONE PROPIONATE 50 MCG/ACT 16 GM NASAL SPRAY EACH NARE SCH ×2 (09:07→20:17)
[2017-04-22] MEDS: BENZTROPINE MESYLATE 1 MG TAB PO SCH ×3 (09:08→17:28)
[2017-04-22] MEDS: DIVALPROEX SODIUM E.R. 500 MG TAB PO SCH (09:08)
[2017-04-22] MEDS: HALOPERIDOL 10 MG TAB PO SCH ×3 (09:08→17:28)
[2017-04-22] MEDS: ACETAMINOPHEN 325 MG TAB PO PRN ×2 (13:25→20:22)
--- NOTE | 2017-04-22 14:21 | HHI.PYPN ---
Subjective Remarks Patient seen in [facility] with floor staff, patient continues to complain of auditory hallucinations that at times her fairly severe. These also times when he is calm quiet and somewhat isolating saying he wishes to Bactrim half-way. Patient is tolerating his medications well. Will recheck Depakote blood level over in a.m. Review of Systems Except as stated in HPI: all other systems reviewed are Neg Mental Status Examination Appearance: Appropriate, Disheveled Consciousness: Alert Orientation: Person, Place, Date/Time Motor Activity: Normal gait Speech: Hesitant, Slow Language: Other (somewhat limited) Fund of Knowledge: Inadequate Attention and Concentration: Easily Distracted Memory: Impaired Mood: Sad, Irritable (mildly) Affect: Other (decreased range and intensity) Thought Process & Associations: Disorganized Thought Content: Bizarre thinking Hallucination Type: Auditory (vague auditory) Delusion Type: Paranoid Suicidal Ideation: No Suicidal Plan: No Suicidal Intention: No Homicidal Ideation: No Homicidal Plan: No Homicidal Intention: No Insight: Fair Judgment: Impulsive Results Vitals/IOs Vital Signs Date Time Temp Pulse Resp B/P (MAP) Pulse Ox O2 Delivery O2 Flow Rate FiO2 04/22/17 05:40 97.6 59 16 125/76 (92) 04/21/17 19:29 98 04/18/17 22:30 Room Air Intake and Output 04/22/17 04/22/17 04/23/17 08:00 16:00 00:00 Intake Total 240 ml 240 ml Balance 240 ml 240 ml Assessment & Plan Problem List: (1) Schizoaffective disorder, depressive type ICD Codes: F25.1 - Schizoaffective disorder, depressive type Assessment & Plan Estimated LOS: days patient continue psychotic at times depressed at times labile. We'll check Depakote blood level tomorrow Justification for Cont. Inpt. At this time patient would decompensated placed in a lower level of care Discharge Planning Hopefully to return to his half-way Request HC Surrog/Guard Advoc?: No Anthony Boswell MD Apr 22, 2017 14:21
[2017-04-22 17:41] VITALS: BP 162/72; PULSE 76; RESP 16; TEMP 98.2; O2SAT 97
[2017-04-22] MEDS: DIVALPROEX SODIUM DELAYED RELEASE 250 MG TAB PO SCH (20:17)
[2017-04-22] MEDS: MIRTAZAPINE 15 MG TAB PO SCH (20:17)
[2017-04-22] MEDS: OLANZapine 10 MG TAB PO SCH (20:18)
[2017-04-22] MEDS: REMOVE OLD NICOTINE PATCH T-DERMAL SCH (21:00)
[2017-04-23 06:09] VITALS: BP 137/95; PULSE 72; RESP 18; TEMP 98; O2SAT 98
[2017-04-23] MEDS: FLUTICASONE PROPIONATE 50 MCG/ACT 16 GM NASAL SPRAY EACH NARE SCH (08:22)
[2017-04-23] MEDS: DIVALPROEX SODIUM E.R. 500 MG TAB PO SCH (08:22)
[2017-04-23] MEDS: HALOPERIDOL 10 MG TAB PO SCH ×2 (08:22→13:19)
[2017-04-23] MEDS: BENZTROPINE MESYLATE 1 MG TAB PO SCH ×2 (08:23→13:19)
[2017-04-23] MEDS: NICOTINE 21 MG/24 HR PATCH T-DERMAL SCH (09:00)
[2017-04-23] MEDS ORDERED: OLAN10TA PO (14:26)
[2017-04-23] MEDS ORDERED: HALO10TA PO (14:26)
[2017-04-23] MEDS ORDERED: MIRT45TA PO (14:26)
[2017-04-23] MEDS ORDERED: FLUT50SP EACH NARE (14:26)
[2017-04-23] MEDS ORDERED: HALO100P IM (14:26)
[2017-04-23] MEDS ORDERED: BENZ0.5T PO (14:26)
[2017-04-23] MEDS ORDERED: DEPA500T3 PO (14:26)
--- NOTE | 2017-04-23 14:30 | HHI.DS ---
Psychiatry Discharge Summary Inpatient Psychiatric care?: Yes Advance Directive: No Reason Not Provided: patient is sedated Mental Health AdvanceDirective: No Health Care Proxy: No Admission Admission Date Apr 18, 2017 at 23:24 Admission Diagnosis: (1) Schizoaffective disorder, depressive type ICD Code: F25.1 - Schizoaffective disorder, depressive type Brief History Patient is a 31-year-old male well-known post multiple prior contacts comes here from his retirement under Baumann act some resolution [facility]'s office dated 04/18/17 at 074 9 PM the document reviewed and agreed with it is essentially states subject was causing a disturbance at the residents is responded patient stated he wanted to seek help he made suicidal statements stating he wanted to kill himself listers taken into protective custody Baumann act. Patient seen and screened in the emergency department urine toxicology negative Depakote blood level LXVI. Patient seen in his room with nurse Elizabeth, is lying in bed napping, but easily arousable. Patient did recognize me from his prior hospitalization a about 2-3 weeks ago. He states she's had increase auditory hallucinations with paranoia anger and irritability. He focuses somewhat on another resident and that that resident teases him. At this time patient does meet criteria for acute inpatient psychiatric hospitalization on the Baumann act I'll do first opinion request second opinion. I feel he has capacity to sign for his medications. We will continue his medications this Depakote Remeron Haldol and Cogentin. Hopeless be fairly short stay. We need to contact the retirement see if they're willing to have him return once he is stabilized. The patient is a 31 year-old man, domiciled in a retirement in [place], single, unemployed, with extensive psychiatric history of schizoaffective disorder, poor impulse control disorder, intellectual disability, very well known by our service, multiple psychiatric hospitalizations, no significant medical history, who was brought on the Baumann act because patient may suicidal statements to kill himself in his residence. Patient was consulted to me for second opinion. On my evaluation the patient is found calm, cooperative, and his way to group activities. He says that he is feeling much better today. He says that he was brought here because he was feeling persistent desire to kill himself, "but not now". At this moment the patient denies suicidal and homicidal ideation, he denies visual and auditory hallucinations. He is oriented 3. Tobacco Use In Past 30 Days: Refused To Answer Alcohol Use: Never Hospital Course Patient's hospital course was uneventful, Bushra compliance with medication. At times there is underlying paranoia some vague cognitive issues. There is at times childish responses also or visual some approval consistency and denying suicidality homicidality. His at times vague about auditory hallucinations. Were very now feels safe returning to his retirement. He is able to contract with us to do no harm and to attempt to cooperate with the staff at the retirement. Thus patient will be discharged today to the retirement with Rx 1 month Results Blood Pressure 137 / 95 Vital Signs Date Time Temp Pulse Resp B/P (MAP) Pulse Ox O2 Delivery O2 Flow Rate FiO2 04/23/17 06:09 98.0 72 18 137/95 (109) 98 Laboratory Tests Test 04/23/17 07:40 Laboratory Results Test 04/19/17 13:51 04/23/17 07:40 Cholesterol Level 142 MG/DL (120-200) HDL Cholesterol 37.7 MG/DL (40.0-60.0) Hemoglobin A1c 5.2 % (4.3-6.0) LDL Cholesterol 69 MG/DL (0-99) Triglycerides Level 179 MG/DL (42-150) Valproic Acid (Depakene) Level 87 MCG/ML (50-100) Summary of Procedures None done Imaging Last Impressions Chest X-Ray 04/18/17 2101 Signed Impressions: Service Date/Time: Tuesday, April 18, 2017 21:15 - CONCLUSION: No evidence of acute cardiopulmonary disease. Anthony Magallon MD Pending results at discharge: No Medications # of Antipsychotic meds at D/C: 2 Appropriate >1 Antipsych meds?: 1 Approp Antipsych med options 1 - Minimum of three failed multiple trials of monotherapy. 2 - Documented plan to taper to monotherapy due to previous use of multiple meds OR cross-taper in progress at D/C. 3 - Documentation of augmentation of Clozapine. 4 - Justification other than those listed in allowable values 1-3, document here : Discharge Discharge Date: Apr 23, 2017 Discharge Diagnosis: (1) Schizoaffective disorder, depressive type Diagnosis: Principal ICD Code: F25.1 - Schizoaffective disorder, depressive type Pt Condition on Discharge: Stable Discharge Disposition: [facility] Discharge Instructions Diet Instructions: As Tolerated, No Restrictions Activities you can perform: Regular-No Restrictions Scheduled Appointment: retirement Discharge Time > 30 minutes Mental Status Examination Appearance: Appropriate, Disheveled Consciousness: Alert Orientation: Person, Place, Date/Time Motor Activity: Normal gait Speech: Hesitant, Slow Language: Other (somewhat limited) Fund of Knowledge: Inadequate Attention and Concentration: Easily Distracted Memory: Impaired Mood: Sad, Irritable (mildly) Affect: Other (decreased range and intensity) Thought Process & Associations: Disorganized Thought Content: Bizarre thinking Hallucination Type: Auditory (vague auditory) Delusion Type: Paranoid Suicidal Ideation: No Suicidal Plan: No Suicidal Intention: No Homicidal Ideation: No Homicidal Plan: No Homicidal Intention: No Insight: Fair Judgment: Impulsive Discharge/Advance Care Plan Health Problems: (1) Schizoaffective disorder, depressive type Goals to promote your health * To prevent worsening of your condition and complications * To maintain your health at the optimal level Directions to meet your goals Take your medications as prescribed Follow your dietary instruction Follow activity as directed Keep your appointments as scheduled Take your immunizations and boosters as scheduled If your symptoms worsen call your PCP, if no PCP go to Urgent Care Center or Emergency Room For 12/10 questions related to your inpatient stay or results of tests pending at discharge, please contact Dr. Anthony Boswell at Smoking is Dangerous to Your Health. Avoid second hand smoking Anthony Boswell MD Apr 23, 2017 14:30
[2017-04-26] MEDS ORDERED: HALO2TAB PO (19:20)
[2017-04-26] MEDS ORDERED: MAPA500T PO (19:20)
[2017-04-26] MEDS ORDERED: VOLT1GEL16 TOPICAL (19:20)
[2017-04-26] MEDS ORDERED: REGU50PO (19:20)
[2017-04-26] MEDS ORDERED: TRIA.1%T TOPICAL (19:20)
== END 2017-04-23 15:15 | DRG 885 ==
LOC: NEDAMB 20:46 → NEDA 23:24 → H260 23:45
PROVIDERS: ADMIT Psychiatry & Neurology Psychiatry; ATTEND Psychiatry & Neurology Psychiatry
DX: F25.1 Schizoaffective disorder, depressive type (principal); K75.9 Inflammatory liver disease, unspecified; F79 Unspecified intellectual disabilities; F31.9 Bipolar disorder, unspecified; F90.9 Attention-deficit hyperactivity disorder, unspecified type; F41.9 Anxiety disorder, unspecified; R62.50 Unspecified lack of expected normal physiological development in childhood; G47.30 Sleep apnea, unspecified; Z72.0 Tobacco use
CPT/HCPCS: 71045; 80048; 80061; 80164; 80307; 81001; 82550; 82552; 83036; 84484; 85025; 93005; 96372; J1200; J1630; J2060

== ENCOUNTER 2017-04-27 00:08 | Emergency (ER) | payer OTHER ==
[~2017-04-27 00:08] MED LIST changes: +DEPA500T3 PO; -DIVA250T PO; -DIVA500T PO; +HALO2TAB PO; -LEVO10%S PO; -LORA-392 PO; +MAPA500T PO; +MIRT45TA PO; -MIRTA15 PO; +OLAN10TA PO; +REGU50PO; -THERTAB15 PO; +TRIA.1%T TOPICAL; +VOLT1GEL16 TOPICAL
[2017-04-27 00:10] VITALS: BP 137/91; PULSE 75; RESP 18; TEMP 98.2; O2SAT 96
--- NOTE | 2017-04-27 01:09 | PD ---
Physical Exam Date Seen by Provider: Apr 27, 2017 Time Seen by Provider: 01:08 Narrative For full history and physical examination please see previous provider's note. Patient was transferred from [facility] for psychiatric evaluation under Baumann act. Data Data Last Documented VS Vital Signs Date Time Temp Pulse Resp B/P (MAP) Pulse Ox O2 Delivery O2 Flow Rate FiO2 04/27/17 00:10 98.2 75 18 137/91 (106) 96 Room Air Orders Orders Psych Screen (04/27/17 00:22) [facility] Medical Record Reviewed: Yes Supervised Visit with LUCRECIA: No Narrative Course Patient was transferred from [facility] for psychiatric evaluation. Patient was observed in [facility] sleeping. Patient's vital signs are stable. Labs and medical records reviewed. Diagnosis Primary Impression: Medical clearance for psychiatric admission Condition: Stable Jimena De Oliveira Apr 27, 2017 01:09
[2017-04-27 03:14] VITALS: BP 125/62; PULSE 58; RESP 19; TEMP 98.1; O2SAT 95
[2017-04-27 06:33] VITALS: BP 116/58; PULSE 67; RESP 17; O2SAT 98
[2017-04-27 11:40] VITALS: BP 125/68; PULSE 74; RESP 18; O2SAT 98
[2017-04-27 14:06] VITALS: BP 143/83; PULSE 75; RESP 18; O2SAT 97
--- NOTE | 2017-04-27 16:06 | PD ---
Physical Exam Time Seen by Provider: 16:02 Narrative SOULEYMANE Mitchell evaluated the patient, lifted the Baumann act and cleared the patient for discharge. Data Data Last Documented VS Vital Signs Date Time Temp Pulse Resp B/P (MAP) Pulse Ox O2 Delivery O2 Flow Rate FiO2 04/27/17 14:06 75 18 143/83 (103) 97 Room Air 04/27/17 03:14 98.1 Orders Orders Psych Screen (04/27/17 00:22) Diet Regular Basic (04/27/17 Breakfast) Diet Regular Basic (04/27/17 Lunch) MDM Supervised Visit with LUCRECIA: No Narrative Course SOULEYMANE Mitchell evaluated the patient, lifted the Baumann act and cleared the patient for discharge. Patient contracts safety. Denies suicidal or homicidal ideations. Patient will be provided community resource packet to /LILY for follow-up. Has friends and family for support. Patient was medically cleared by alternate provider prior to psych screening. Patient has been evaluated by psychiatry and and is now cleared for discharge. Diagnosis Primary Impression: Adjustment disorder with disturbance of conduct Referrals: LILY (Out patient) [facility] Primary Care Physician Psychiatrist Jonathon BAUTISTA Behavioral Patient Instructions: General Instructions, Mood Disorders (ED), Schizoaffective Disorder (ED), Schizophrenia (ED) Additional Instruction: Contract safety to your self and others Follow-up with psychiatry Follow-up with primary care provider Follow-up with Missael Robertson Return to the emergency department immediately with worsening of symptoms Med/Other Pt SpecificInfo: No Change to Meds, No Meds Exist/No RX given Disposition: 01 DISCHARGE HOME Condition: Stable Franny Ma Apr 27, 2017 16:06
--- NOTE | 2017-04-27 17:31 | PD ---
History of Present Illness Chief Complaint: Psychiatric Symptoms Time Seen by Provider: 15:40 Travel History International Travel<30 Days: No Contact w/Intl Traveler<30days: No Known affected area: No Legal Status Legal Status: Baumann Act Baumann Act Signed By: DR MARIMAR CRAWLEY ED History of Present Illness: History of Present Illness HPI 31-year-old male with history of schizophrenia, borderline intellectual functioning who presents to the ED on a voluntary basis reporting that he has not been taking his medication for an unknown interval of time and that he began to hear voices telling him to kill himself. He has been self injuring in the ER by hitting himself. The patient was discharged from inpatient psychiatric unit on April 23. He resides at a intermediate. The patient was monitored in [facility] and he was observed interacting appropriately with staff. He did not engage in any self injurious behavior. He was not observed responding to internal stimuli. I met with the patient and he is requesting to be discharge. He denies any suicidal or homicidal ideation intent or plan. He tells me that he has been taking his medications since he was last discharge. He also tells me that he was mad at the intermediate because they would not let him talk to his parents on the telephone during this past weekend so he left and went to the [facility] [employer]. The patient at this time does not present any criteria for inpatient psychiatric hospitalization. Furthermore he will not benefit from being on our inpatient psychiatric unit. PFSH Past Medical History ADHD: Yes Arthritis: No Asthma: No Autoimmune Disease: No Blood Disorders: No Bipolar Disorder: Yes Anxiety: Yes Depression: Yes Heart Rhythm Problems: No Cancer: No Cardiovascular Problems: No High Cholesterol: No Chemotherapy: No Chest Pain: No Congestive Heart Failure: No COPD: No Cerebrovascular Accident: No Developmental Delay: Yes Diabetes: No Diminished Hearing: No Endocrine: No Gastrointestinal Disorders: No GERD: No Glaucoma: No Genitourinary: No Headaches: Yes Hepatitis: Yes (unknown hx of B or C) Hiatal Hernia: No Heparin Induced Thrombocytopen: No Hypertension: No Immune Disorder: No Implanted Vascular Access Dvce: No Kidney Stones: No Medical other: Yes (INTELLECTUAL DISABILITY) Musculoskeletal: Yes (L KNEE HURTS AT TIMES) Neurologic: No Psychiatric: Yes Reproductive: No Respiratory: Yes Immunizations Current: Yes Migraines: No Myocardial Infarction: No Radiation Therapy: No Renal Failure: No Schizophrenia: Yes Seizures: No Sickle Cell Disease: No Sleep Apnea: Yes Thyroid Disease: No Ulcer: No Past Surgical History Abdominal Surgery: No AICD: No Arteriovenous Shunt: No Cardiac Surgery: No Ear Surgery: No Endocrine Surgery: No Eye Surgery: No Genitourinary Surgery: No Gynecologic Surgery: No Insulin Pump: No Joint Replacement: No Neurologic Surgery: No Oral Surgery: No Pacemaker: No Thoracic Surgery: No Other Surgery: Yes Psychiatric History Psychiatric History Hx Psychiatric Treatment: PREVIOUS HISTORY OF SCHIZOPHRENIA AND SCHIZOAFFECTIVE. MANY PREVIOUS BAUMANN ACTS AND HOSPITAL ADMISSIONS. He was discharged on April 23 from [facility]. History of Inpatient Treatment: Yes Guns or firearms in home: No Social History Single male. Lives in a intermediate. On disability. Hx Alcohol Use: No Hx Tobacco Use: Yes Hx Substance Use: No Substance Use Type: Nicotine/Cigarettes Hx of Substance Use Treatment: No Family Psychiatric History One brother with mental health illness. Allergies-Medications (Allergen,Severity, Reaction): Coded Allergies: No Known Allergies (Verified Allergy, Unknown, 04/26/17) Reported Meds & Prescriptions Reported Meds & Active Scripts Active Olanzapine 10 Mg Tab 10 Mg PO HS Haloperidol 10 Mg Tab 10 Mg PO TID Depakote ER (Divalproex Sodium) 500 Mg Gina 500 Mg PO DIRECTED One by mouth a.m., 2 by mouth at bedtime Mirtazapine 45 Mg Tab 45 Mg PO HS Benztropine (Benztropine Mesylate) 0.5 Mg Tab 0.5 Mg PO TID Fluticasone Nasal Leo 50 Mcg/Act Naspr 50 Mcg EACH NARE BID 50 mcg/spray Haldol Decanoate Inj (Haloperidol Decanoate) 100 Mg/Ml Inj 100 Mg IM Q28D Patient refused injection on 04/19/17 Reported Mapap (Acetaminophen) 500 Mg Tab 1,000 Mg PO Q8H PRN Reguloid Powder (Psyllium Seed (with Sugar)) 369 Gm Powder Voltaren (Diclofenac Sodium) 1 % Gel..gram. 4 Gm TOPICAL BID Triamcinolone Topical (Triamcinolone Acetonide) 0.1% Cream 1 Applic TOPICAL DAILY Haloperidol 2 Mg Tab 2 Mg PO TID Review of Systems Psychiatric: DENIES: Anxiety, Confusion, Mood changes, Depression, Hallucinations, Agitation, Suicidal Ideation, Homicidal Ideation, Delusions Except as stated in HPI: all other systems reviewed are Neg Mental Status Examination Appearance: Appropriate Consciousness: Alert Orientation: x4 Motor Activity: Normal gait Speech: Unremarkable Language: Adequate Fund of Knowledge: Adequate (to fair) Attention and Concentration: Adequate Memory: Unremarkable (not tested) Mood: Appropriate Affect: Appropriate Thought Process & Associations: Intact, Logical, Goal directed Thought Content: Appropriate Hallucination Type: None Delusion Type: None Suicidal Ideation: No Suicidal Plan: No Suicidal Intention: No Homicidal Ideation: No Homicidal Plan: No Homicidal Intention: No Insight: Fair Judgment: Impulsive MDM Medical Decision Making Medical Record Reviewed: Yes Assessment/Plan 31-year-old male known to this facility with history of schizophrenia who presents to the ED under a Baumann act initiated by physician in [place] ED. The patient was monitored here in J[facility] he presented no behavioral concerns and no suicidality. He interacted appropriately with staff that he knows well. The patient is requesting discharge and he admits that he was acting out because he did not get to talk to his parents over the weekend. At this time the patient does not present criteria to remain under the Baumann act and it will be lifted. Psychiatric clear for discharge. Orders Orders Psych Screen (04/27/17 00:22) Diet Regular Basic (04/27/17 Breakfast) Diet Regular Basic (04/27/17 Lunch) Ed Discharge Order (04/27/17 16:22) Results Vital Signs Date Time Temp Pulse Resp B/P (MAP) Pulse Ox O2 Delivery O2 Flow Rate FiO2 04/27/17 16:34 04/27/17 14:06 75 18 143/83 (103) 97 Room Air 04/27/17 11:40 74 18 125/68 (87) 98 Room Air 04/27/17 06:33 67 17 116/58 (77) 98 04/27/17 03:14 98.1 58 19 125/62 (83) 95 Room Air 04/27/17 00:10 98.2 75 18 137/91 (106) 96 Room Air Diagnosis Primary Impression: Adjustment disorder with disturbance of conduct Psychiatrically Cleared: Yes Referrals: ACT (Out patient) [facility] Primary Care Physician Psychiatrist Jonathon BAUTISTA Behavioral Departure Forms: Tests/Procedures Patient Instructions: General Instructions, Mood Disorders (ED), Schizophrenia (ED), Schizoaffective Disorder (ED) Additional Instructions: Contract safety to your self and others Follow-up with psychiatry Follow-up with primary care provider Follow-up with Missael Robertson Return to the emergency department immediately with worsening of symptoms Med/ Other Pt Specific Info: No Change to Meds Disposition: 01 DISCHARGE HOME Condition: Stable Paula Moseley Apr 27, 2017 17:31
== END 2017-04-27 16:37 | disposition home or self-care (01) ==
LOC: NEPJ 00:08
DX: F43.24 Adjustment disorder with disturbance of conduct (principal); F20.9 Schizophrenia, unspecified; F90.9 Attention-deficit hyperactivity disorder, unspecified type; Z72.0 Tobacco use; R94.31 Abnormal electrocardiogram [ECG] [EKG]
CPT/HCPCS: 80053; 80307; 85025; 93005; 96372; 96374; 99284; J1630; J2060; 99281

== ENCOUNTER 2017-05-19 20:27 | Inpatient (IN) | payer OTHER ==
[~2017-05-19] VITALS: Ht 175.3 cm; Wt 104.5 kg
--- NOTE | 2017-05-19 20:53 | PD ---
HPI Chief Complaint: Psychiatric Symptoms Time Seen by Provider: 20:38 Travel History International Travel<30 days: No Contact w/Intl Traveler<30days: No History of Present Illness HPI Patient is a 31-year-old male presenting to the emergency department under Baumann act for psychiatric evaluation. Patient states he was [facility] the [facility] today. Upon his release he reports that the voices are telling him to kill himself. Patient states that since he has been out he feels scared that he is going to do something. He reports a previous suicide attempt by cutting. He states that he asked the doctor to stay at the [facility] but was unable to. Symptoms started today, severity is moderate, symptoms are exacerbated due to released from facility causing increased anxiety and hallucinations. Patient has no physical complaints at this time. PFSH Past Medical History ADHD: Yes Bipolar Disorder: Yes Anxiety: Yes Depression: Yes Developmental Delay: Yes Headaches: Yes Hepatitis: Yes (unknown hx of B or C) Musculoskeletal: Yes (L KNEE HURTS AT TIMES) Psychiatric: Yes Respiratory: Yes Immunizations Current: Yes Schizophrenia: Yes Sleep Apnea: Yes Past Surgical History Other Surgery: Yes Social History Alcohol Use: No Tobacco Use: Yes Substance Use: No Allergies-Medications (Allergen,Severity, Reaction): Coded Allergies: No Known Allergies (Verified Allergy, Unknown, 04/26/17) Reported Meds & Prescriptions Reported Meds & Active Scripts Active Olanzapine 10 Mg Tab 10 Mg PO HS Haloperidol 10 Mg Tab 10 Mg PO TID Depakote ER (Divalproex Sodium) 500 Mg Gina 500 Mg PO DIRECTED One by mouth a.m., 2 by mouth at bedtime Mirtazapine 45 Mg Tab 45 Mg PO HS Benztropine (Benztropine Mesylate) 0.5 Mg Tab 0.5 Mg PO TID Fluticasone Nasal [place] 50 Mcg/Act Naspr 50 Mcg EACH NARE BID 50 mcg/spray Haldol Decanoate Inj (Haloperidol Decanoate) 100 Mg/Ml Inj 100 Mg IM Q28D Patient refused injection on 04/19/17 Reported Mapap (Acetaminophen) 500 Mg Tab 1,000 Mg PO Q8H PRN Reguloid Powder (Psyllium Seed (with Sugar)) 369 Gm Powder Voltaren (Diclofenac Sodium) 1 % Gel..gram. 4 Gm TOPICAL BID Triamcinolone Topical (Triamcinolone Acetonide) 0.1% Cream 1 Applic TOPICAL DAILY Haloperidol 2 Mg Tab 2 Mg PO TID Review of Systems Except as stated in HPI: all other systems reviewed are Neg Psychiatric: Positive: Anxiety, Suicidal Ideations, Disorder of Thought, Mood Disorder Physical Exam Narrative GENERAL: Well-developed, well-nourished, alert male. Presenting in no acute distress. SKIN: Warm and dry. HEAD: Atraumatic. Normocephalic. EYES: Pupils equal and round. No scleral icterus. No injection or drainage. ENT: No nasal bleeding or discharge. Mucous membranes pink and moist. NECK: Trachea midline. No JVD. CARDIOVASCULAR: Regular rate and rhythm. RESPIRATORY: No accessory muscle use. Clear to auscultation. Breath sounds equal bilaterally. GASTROINTESTINAL: Abdomen soft, non-tender, nondistended. Hepatic and splenic margins not palpable. MUSCULOSKELETAL: Extremities without clubbing, cyanosis, or edema. No obvious deformities. NEUROLOGICAL: Awake and alert. No obvious cranial nerve deficits. Motor grossly within normal limits. Five out of 5 muscle strength in the arms and legs. Normal speech. PSYCHIATRIC: Appropriate mood and flat affect; insight and judgment impaired. Data Data Last Documented VS Vital Signs Date Time Temp Pulse Resp B/P (MAP) Pulse Ox O2 Delivery O2 Flow Rate FiO2 05/19/17 20:55 98.8 87 18 141/76 (97) 97 Orders Orders Psych Screen (05/19/17 20:53) [facility] Medical Decision Making Medical Screen Exam Complete: Yes Emergency Medical Condition: Yes Medical Record Reviewed: Yes Interpretation(s) Vital Signs Date Time Temp Pulse Resp B/P (MAP) Pulse Ox O2 Delivery O2 Flow Rate FiO2 05/19/17 20:55 98.8 87 18 141/76 (97) 97 Differential Diagnosis Schizophrenia versus mood disorder versus anxiety versus psychosis versus other Narrative Course Patient is a 31-year-old male presenting under Baumann act for psychiatric evaluation secondary to hallucinations and suicidal ideations. Patient was just [facility] today, he had been there since his visit here on or about April 26. He stated when he was released today he became more anxious and the voices started telling him to kill himself again. Labs reviewed from previous admission, they were normal and no acute findings are identified at that time. Patient is medically cleared for psychiatric evaluation. Diagnosis Primary Impression: Medical clearance for psychiatric admission Condition: Stable Jimena De Oliveirab 28, 2018 20:53
[2017-05-19 20:55] VITALS: BP 141/76; PULSE 87; RESP 18; TEMP 98.8; O2SAT 97
[2017-05-20 02:55] VITALS: BP 133/75; PULSE 88; RESP 17; TEMP 98.8; O2SAT 98
[2017-05-20 06:11] VITALS: BP 130/69; PULSE 78; RESP 20; TEMP 97.3; O2SAT 96
[2017-05-20] MEDS ORDERED: LORazepam 2 MG/ML VIAL IM PRN (10:45)
[2017-05-20] MEDS ORDERED: LORazepam 0.5 MG TAB PO PRN (10:45)
--- NOTE | 2017-05-20 11:00 | HHI.HP ---
Provisional Diagnosis Admission Date May 20, 2017 at 10:45 [place] I. Schizoaffective disorder Certification of Person's Competence To Provide Express and Informed Consent I have personally examined Konstantin Peterson , a person being served at [facility] on, May 20, 2017 10:48. Express and informed consent means consent voluntarily given in writing, by a competent person, after sufficient explanation and disclosure of the subject matter involved to enable the person to make a knowing and willful decision without any element of force, fraud, deceit, duress, or other form of constraint or coercion. This person is 18 years of age or older, is not now known to be incompetent to consent to treatment with a guardian advocate, and does not have a health care surrogate or proxy currently making medical treatment decisions. I have found this person to be one of the following: [xxx] Competent to provide express and informed consent, as defined above, for voluntary admission to this facility and is competent to provide express and informed consent for treatment. He/she has the consistent capacity to make well reasoned, willful, and knowing decisions concerning his or her medical or mental health treatment. The person fully and consistently understands the purpose of the admission for examination/placement and is fully capable of personally exercising all rights assured under [place] Incompetent to provide express and informed consent to voluntary admission, and this is incompetent to provide express and informed consent to treatment. The person must be transferred to involuntary status and a petition for a guardian advocate filed with the Circuit Court. [] Refusing to provide express and informed consent to voluntary admission but is competent to provide express and informed consent for treatment. The person must be discharged or transferred to involuntary status. Form shall be completed within 24 hours of a person's arrival at the receiving facility and filed in the clinical record of each person: 1. Admitted on a voluntary basis 2. Permitted to provide express and informed consent to his/her own treatment 3. Allowed to transfer from involuntary to voluntary status 4. Prior to permitting a person to consent to his or her own treatment after having been previously found incompetent to consent to treatment. 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 Upon evaluation in the ER patient was noted to be tearful, found kneeling on the floor as if praying but denied being a amish person stated that he was on the floor because of the voices. Patient reports having command auditory hallucinations to kill himself stating that the voices never go away. Patient states that when he is on treatment and take his medications and voices are far away. Patient also mentions that at his senior living he did not take his medications and caregiver was concerned and called for help. Patient denies feeling depressed, denies any visual hallucinations or delusions. We will continues with command auditory hallucinations to kill himself. Patient was requesting to return back to the [facility] but aware that he will be admitted to this facility which he agreed. As per ER notes patient stated he wanted to go back to the [facility] because he likes it there was not ready to leave and that he does not want to be in his senior living anymore. Past psychiatric history: Previous psychiatric diagnoses schizophrenia/ schizoaffective disorder, multiple psychiatric admissions, previous suicide attempts, followed by [facility] for mental health services. Review of Systems Except as stated in HPI: all other systems reviewed are Neg Past Psych History Psychological trauma history Denies history of physical or sexual abuse. Violence risk - others (6 mos) Elevated due to her recent behaviors for Baumann act Violence risk - self (6 mos) Elevated due to history of suicide attempts and recent self-injurious behavior Substance Abuse History Drugs/Alcohol past 12 months Denies Past Family Social History Coded Allergies: No Known Allergies (Verified Allergy, Unknown, 04/26/17) Active Scripts Olanzapine (Olanzapine) 10 Mg Tab, 10 MG PO HS for health, #30 TAB 0 Refills Prov:Anthony Boswell MD 04/23/17 Haloperidol (Haloperidol) 10 Mg Tab, 10 MG PO TID for health, #90 TAB 0 Refills Prov:Anthony Boswell MD 04/23/17 Divalproex ER (Depakote ER) 500 Mg Gina, 500 MG PO DIRECTED for health, #90 TAB 0 Refills One by mouth a.m., 2 by mouth at bedtime Prov:Anthony Boswell MD 04/23/17 Mirtazapine (Mirtazapine) 45 Mg Tab, 45 MG PO HS for Depression Control, #30 TAB 0 Refills Prov:Anthony Boswell MD 04/23/17 Benztropine (Benztropine) 0.5 Mg Tab, 0.5 MG PO TID for health, #90 TAB 0 Refills Prov:Anthony Boswell MD 04/23/17 Fluticasone Nasal [place] (Fluticasone Nasal [place]) 50 Mcg/Act Naspr, 50 MCG EACH NARE BID for Allergy Management, #1 BOTTLE 0 Refills 50 mcg/spray Prov:Anthony Boswell MD 04/23/17 Haloperidol Decanoate Inj (Haldol Decanoate Inj) 100 Mg/Ml Inj, 100 MG IM Q28D for Schizophrenia, #1 VIAL 0 Refills Patient refused injection on 04/19/17 Prov:Anthony Boswell MD 04/23/17 Reported Medications Acetaminophen (Mapap) 500 Mg Tab, 1000 MG PO Q8H Y for PAIN, TAB 0 Refills 04/26/17 Psyllium Seed (with Sugar) (Reguloid Powder) 369 Gm Powder 04/26/17 Diclofenac Sodium (Voltaren) 1 % Gel..gram., 4 GM TOPICAL BID 04/26/17 Triamcinolone Topical (Triamcinolone Topical) 0.1% Cream, 1 APPLIC TOPICAL DAILY for Inflammation, GM 0 Refills 04/26/17 Discontinued Reported Medications Haloperidol (Haloperidol) 2 Mg Tab, 2 MG PO TID, TAB 0 Refills 04/26/17 Current Medications Medications (Trade) Dose Ordered Sig/Bacilio Route Start Time Stop Time Status Last Admin (Cogentin) 0.5 mg TID PO 05/20/17 13:00 UNV (Depakote Er) 500 mg DAILY PO 05/20/17 10:30 UNV (Haldol) 10 mg TID PO 05/20/17 13:00 UNV (Remeron) 45 mg HS PO 05/20/17 21:00 UNV (ZyPREXA) 10 mg HS PO 05/20/17 21:00 UNV Non-Formulary Medication 4 gm BID TOPICAL 05/20/17 21:00 UNV (Depakote Er) 1,000 mg HS PO 05/20/17 21:00 UNV Family Psych History Brother also with mental illness (unspecified), mother with previous suicide attempts Social History Patient lives at a senior living. He is single with no children, has educations fourth grade. Unemployed on SSI. He denies any access to guns or firearms. Patient's Strengths (min. 2) Verbal and communicative Physical Exam Not noted to be in acute distress, no signs of tremor or EPS, no gross motor abnormalities. No psychomotor agitation although has some psychomotor retardation noted. Vital Signs Vital Signs Date Time Temp Pulse Resp B/P (MAP) Pulse Ox O2 Delivery O2 Flow Rate FiO2 05/20/17 06:11 97.3 78 20 130/69 (89) 96 Room Air Mental Status Examination Appearance: Appropriate Consciousness: Alert Orientation: Person, Place Motor Activity: Normal gait Speech: Slow Language: Adequate Fund of Knowledge: Inadequate Attention and Concentration: Adequate Memory: Unremarkable Mood: Sad Affect: Sad Thought Process & Associations: Other (Some poverty of thought) Thought Content: Hallucinations Hallucination Type: Auditory Delusion Type: None Suicidal Ideation: Yes Suicidal Plan: No Suicidal Intention: No Homicidal Ideation: No Homicidal Plan: No Homicidal Intention: No Insight: Fair Judgment: Impulsive Assessment & Plan Problem List: (1) Schizoaffective disorder, depressive type ICD Codes: F25.1 - Schizoaffective disorder, depressive type Assessment & Plan Patient is a 31-year-old man who carries a diagnosis schizoaffective disorder, multiple psychiatric admissions, previous suicide attempts, history of noncompliance to medications recently discharged from a [facility] inpatient unit, he was admitted under Baumann act knocking over items inside the residence, punching holes in the bedroom braga with a concern patient posing substantial threat to himself and others by recent behavior which she was admitted to the patient psychiatry for further evaluation and management. Patient initially was to be readmitted back at the [facility] as patient was recently discharged from there but at this time there is no availability. Patient admitted to the inpatient psychiatry unit for stabilization. Restart patient on Depakote 500 mg a.m./1000 g at bedtime, Remeron 45 mg at bedtime, olanzapine 10 mg at bedtime, benztropine 0.5 mg p.o. 3 times daily, and Haldol 10 mg 3 times daily. We will order labs to include Depakote level, BMP, CBC, ammonia level. EKG ordered. Continue to monitor mood and behavior. Collateral information pending. Social work intervention for psychosocial assessment. Discharge planning in progress. Discharge Planning Return back to patient's senior living once psychiatrically stable. Russ Crump MD May 20, 2017 11:00
[2017-05-20] MEDS: DIVALPROEX SODIUM E.R. 500 MG TAB PO SCH ×2 (11:15→21:00)
[2017-05-20 11:30] VITALS: BP 119/59; PULSE 86; RESP 16; O2SAT 97
[2017-05-20] MEDS ORDERED: PILL SPLITTER OTHER PRN (11:30)
[2017-05-20] MEDS: HALOPERIDOL 10 MG TAB PO SCH ×2 (13:00→18:00)
[2017-05-20] MEDS: BENZTROPINE MESYLATE 1 MG TAB PO SCH ×2 (13:00→18:00)
[2017-05-20 15:41] LABS: AUTOMATED NEUTROPHIL # 2.3 TH/MM3 (1.8-7.7); BASOPHIL % 0.7 % (0.0-2.0); EOSINOPHIL # 0.1 TH/MM3 (0-0.4); EOSINOPHIL % 3.1 % (0.0-4.0); HEMATOCRIT 42.1 % (39.0-51.0); LYMPH % 33.1 % (9.0-44.0); LYMPHOCYTE # 1.5 TH/MM3 (1.0-4.8); MEAN CELL VOLUME 86.8 FL (80.0-100.0); MEAN CORPUSCULAR HEMOGLOBIN 28.8 PG (27.0-34.0); MEAN CORPUSCULAR HGB CONC 33.2 % (32.0-36.0); MEAN PLATELET VOLUME 8.5 FL (7.0-11.0); MONO % 11.9 % (0.0-8.0); MONOCYTE # 0.5 TH/MM3 (0-0.9); NEUT % 51.2 % (16.0-70.0); PLATELET COUNT 192 TH/MM3 (150-450); RED BLOOD COUNT 4.85 MIL/MM3 (4.50-5.90); RED CELL DISTRIBUTION WIDTH 13.4 % (11.6-17.2); WHITE BLOOD COUNT 4.5 TH/MM3 (4.0-11.0)
[2017-05-20 15:47] VITALS: BP 159/97; PULSE 79; RESP 18; TEMP 97.5; O2SAT 99
[2017-05-20 15:51] LABS: BICARBONATE 25.8 MEQ/L (21.0-32.0); CALCIUM 8.8 MG/DL (8.5-10.1); CREATININE 0.92 MG/DL (0.60-1.30)
[2017-05-20 17:13] LABS: ALBUMIN 3.3 GM/DL (3.4-5.0); TOTAL BILIRUBIN ADULT 0.2 MG/DL (0.2-1.0); TOTAL PROTEIN 6.5 GM/DL (6.4-8.2)
[2017-05-20 17:15] LABS: DIRECT BILIRUBIN ADULT 0.1 MG/DL (0.0-0.2); INDIRECT BILIRUBIN 0.1 MG/DL (0.0-0.8)
[2017-05-20] MEDS ORDERED: LORazepam 2 MG/ML VIAL IM ONE (19:50)
[2017-05-20] MEDS ORDERED: HALOPERIDOL LACTATE 5 MG/ML AMP IM ONE (19:50)
[2017-05-20] MEDS ORDERED: HALOPERIDOL LACTATE 5 MG/ML AMP ONE (19:58)
[2017-05-20] MEDS: OLANZapine 10 MG TAB PO SCH (21:00)
[2017-05-20] MEDS: MIRTAZAPINE 15 MG TAB PO SCH (21:00)
[2017-05-20] MEDS ORDERED: DICLOFENAC SODIUM 4 GM TOPICAL SCH (21:00)
[2017-05-21 06:22] VITALS: BP 135/71; PULSE 87; RESP 18; TEMP 98.1; O2SAT 97
[2017-05-21] MEDS: BENZTROPINE MESYLATE 1 MG TAB PO SCH ×3 (09:00→18:00)
[2017-05-21] MEDS: HALOPERIDOL 10 MG TAB PO SCH ×3 (09:00→18:00)
[2017-05-21] MEDS: DIVALPROEX SODIUM E.R. 500 MG TAB PO SCH ×2 (09:00→21:00)
[2017-05-21 10:36] LABS: CHOLESTEROL 146 MG/DL (120-200)
[2017-05-21 10:40] LABS: CHOLESTEROL/ HDL RATIO 3.35 RATIO; HDL CHOLESTEROL 43.5 MG/DL (40.0-60.0); LDL CHOLESTEROL 60 MG/DL (0-99); TRIGLYCERIDES 211 MG/DL (42-150)
[2017-05-21 15:01] LABS: HEMOGLOBIN A1C 5.1 % (4.3-6.0)
[2017-05-21] MEDS ORDERED: ACETAMINOPHEN 500 MG CPLT PO PRN (15:15)
--- NOTE | 2017-05-21 15:21 | HHI.PYPN ---
Subjective Remarks Patient initially admitted by Dr. Russ Crump, his H&P reviewed and agreed with. I have done the initial admitting psychiatric template and review of med reconciliation. Patient also seen by me today patient continues with a very sad demeanor very poor eye contact his mood also reflecting his intellectual deficits. Is unable to give any specific reason for his [id number] behavior but it appears she was noncompliant medication. Angry at the home at various staff and other residents. It appears his there very briefly that he had [facility] after discharge from here on the past month or so and just past few days discharge from the [facility]. He now wants to go back to the [facility]. Patient denies voices she appears to be responding to internal stimuli, he is also still quite vigilant and guarded. Review of the EMR shows he has had multiple psychiatric visits and hospitalizations [facility] past history of 2016. We will restart his medications. Though perhaps we need to consider the possibility of long-term referral for stabilization, perhaps at the [facility] Review of Systems Except as stated in HPI: all other systems reviewed are Neg Mental Status Examination Appearance: Appropriate Consciousness: Alert Orientation: Person, Place Motor Activity: Normal gait Speech: Hesitant, Slow Language: Adequate Fund of Knowledge: Inadequate Attention and Concentration: Other (fair) Memory: Unremarkable Mood: Sad, Other (guarded and vigilant) Affect: Other (decreased range and intensity) Thought Process & Associations: Other (Some poverty of thought) Thought Content: Hallucinations Hallucination Type: Auditory Delusion Type: None Suicidal Ideation: Yes Suicidal Plan: No Suicidal Intention: No Homicidal Ideation: No Homicidal Plan: No Homicidal Intention: No Insight: Poor Judgment: Poor Results Labs Test 05/21/17 09:35 Triglycerides Level 211 MG/DL Cholesterol Level 146 MG/DL LDL Cholesterol 60 MG/DL HDL Cholesterol 43.5 MG/DL Cholesterol/HDL Ratio 3.35 RATIO Vitals/IOs Vital Signs Date Time Temp Pulse Resp B/P (MAP) Pulse Ox O2 Delivery O2 Flow Rate FiO2 05/21/17 06:22 98.1 87 18 135/71 (92) 97 05/20/17 11:30 Room Air Assessment & Plan Problem List: (1) Schizoaffective disorder, depressive type ICD Codes: F25.1 - Schizoaffective disorder, depressive type Assessment & Plan Estimated LOS: days patient remained psychotic guarded paranoid and vigilant. At this point feel patient does not have capacity to agreed to either admission her medications thus I'll do first opinion requests a second opinion petition supporting Baumann act, and also ask for healthcare surrogate and guardian advocate. I feel we do need to consider seriously possible referral to the [facility] Justification for Cont. Inpt. At this time patient decompensated placed a lower level of care Discharge Planning This needs to be determined perhaps referral to [facility] Request HC Surrog/Guard Advoc?: Yes Anthony Boswell MD May 21, 2017 15:20
[2017-05-21 17:08] VITALS: BP 136/72; PULSE 84; RESP 18; TEMP 98.4; O2SAT 98
--- NOTE | 2017-05-21 17:57 | EKG ---
Date Performed: 05/21/2017 Time Performed: 09:55:20 PTAGE: 31 years EKG: Sinus rhythm POSSIBLE RIGHT VENTRICULAR HYPERTROPHY ABNORMAL ECG PREVIOUS TRACING : 04/18/2017 21.01 Since the prior tracing, there has been no significant brambila DOCTOR: Rosanna Austin Interpretating Date/Time 05/21/2017 17:56:49
[2017-05-21] MEDS: MIRTAZAPINE 15 MG TAB PO SCH (21:00)
[2017-05-21] MEDS: OLANZapine 10 MG TAB PO SCH (21:00)
[2017-05-21] MEDS ORDERED: diphenhydrAMINE HCL 50 MG/ML VIAL IM ONE (22:00)
[2017-05-21] MEDS ORDERED: OLANZapine IM 10 MG VIAL IM ONE (22:00)
[2017-05-22 06:21] VITALS: BP 115/67; PULSE 74; RESP 16; TEMP 97; O2SAT 98
[2017-05-22] MEDS: BENZTROPINE MESYLATE 1 MG TAB PO SCH ×3 (09:00→17:21)
[2017-05-22] MEDS: LORazepam 1 MG TAB PO PRN ×2 (13:00→18:44)
[2017-05-22] MEDS: HALOPERIDOL 10 MG TAB PO SCH ×2 (13:00→17:21)
--- NOTE | 2017-05-22 16:07 | HHI.PYPN ---
Subjective Remarks This a request for second opinion. Admission note was reviewed and I agree with this contents Patient was seen and case discussed with nursing. Medication reconciliation was completed by staff after speaking with patient's sister. 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 Cognitive deficits. He had to receive an ETO last night or agitated behavior. No ETO's needed today. Patient has poor insight and responding to internal stimuli. Mental Status Examination Appearance: Appropriate Consciousness: Alert Orientation: Person, Place Motor Activity: Normal gait Speech: Hesitant, Slow Language: Adequate Fund of Knowledge: Inadequate Attention and Concentration: Other (fair) Memory: Unremarkable Mood: Sad, Other (guarded and vigilant) Affect: Other (decreased range and intensity) Thought Process & Associations: Other (simple/concrete) Thought Content: Hallucinations Hallucination Type: Auditory Delusion Type: None Suicidal Ideation: Yes Suicidal Plan: No Suicidal Intention: No Homicidal Ideation: No Homicidal Plan: No Homicidal Intention: No Insight: Poor Judgment: Poor Results Vitals/IOs Vital Signs Date Time Temp Pulse Resp B/P (MAP) Pulse Ox O2 Delivery O2 Flow Rate FiO2 05/22/17 06:21 97.0 74 16 115/67 (83) 98 05/20/17 11:30 Room Air Assessment & Plan Problem List: (1) Schizoaffective disorder, depressive type ICD Codes: F25.1 - Schizoaffective disorder, depressive type Assessment & Plan Home medications restarted Justification for Cont. Inpt. Patient will decompensate in a less restrictive setting Request HC Surrog/Guard Advoc?: Yes Raphael Hazel DO May 22, 2017 16:07
[2017-05-22 18:41] VITALS: BP 149/77; PULSE 88; RESP 17; TEMP 97.6; O2SAT 98
[2017-05-22] MEDS: hydrOXYzine HCL 50 MG TAB PO PRN (18:44)
[2017-05-22] MEDS: OLANZapine 10 MG TAB PO SCH (20:13)
[2017-05-22] MEDS: DIVALPROEX SODIUM E.R. 500 MG TAB PO SCH (20:13)
[2017-05-22] MEDS: MIRTAZAPINE 15 MG TAB PO SCH (20:13)
[2017-05-23 06:21] VITALS: BP 140/90; PULSE 86; RESP 17; TEMP 97.4; O2SAT 98
[2017-05-23] MEDS: BENZTROPINE MESYLATE 1 MG TAB PO SCH ×3 (09:36→17:07)
[2017-05-23] MEDS: HALOPERIDOL 10 MG TAB PO SCH ×3 (09:36→17:07)
[2017-05-23] MEDS: DIVALPROEX SODIUM E.R. 500 MG TAB PO SCH ×2 (09:36→20:12)
--- NOTE | 2017-05-23 13:25 | HHI.PYPN ---
Subjective Remarks Patient was seen and case discussed with nursing. Patient's behavior has improved. He has not needed any ETO's. He is hoping to be discharged next week. Insight remains poor given cognitive deficits. Compliant with medications Mental Status Examination Appearance: Appropriate Consciousness: Alert Orientation: Person, Place Motor Activity: Normal gait Speech: Hesitant, Slow Language: Adequate Fund of Knowledge: Inadequate Attention and Concentration: Other (fair) Memory: Unremarkable Mood: Sad, Other (guarded and vigilant) Affect: Other (decreased range and intensity) Thought Process & Associations: Other (simple/concrete) Thought Content: Hallucinations Hallucination Type: Auditory Delusion Type: None Suicidal Ideation: Yes Suicidal Plan: No Suicidal Intention: No Homicidal Ideation: No Homicidal Plan: No Homicidal Intention: No Insight: Poor Judgment: Poor Results Vitals/IOs Vital Signs Date Time Temp Pulse Resp B/P (MAP) Pulse Ox O2 Delivery O2 Flow Rate FiO2 05/23/17 06:21 97.4 86 17 140/90 (107) 98 05/20/17 11:30 Room Air Assessment & Plan Problem List: (1) Schizoaffective disorder, depressive type ICD Codes: F25.1 - Schizoaffective disorder, depressive type Assessment & Plan Continue current treatment plan Justification for Cont. Inpt. Patient would decompensate in a less restrictive setting Request HC Surrog/Guard Advoc?: Yes Raphael Hazel DO May 23, 2017 13:25
[2017-05-23 18:25] VITALS: BP 116/64; PULSE 90; RESP 17; TEMP 96.7; O2SAT 98
[2017-05-23] MEDS: MIRTAZAPINE 15 MG TAB PO SCH (20:12)
[2017-05-23] MEDS: OLANZapine 10 MG TAB PO SCH (20:12)
[2017-05-23] MEDS: hydrOXYzine HCL 50 MG TAB PO PRN (20:42)
[2017-05-24 06:38] VITALS: BP 152/67; PULSE 62; RESP 17; TEMP 96.8; O2SAT 98
[2017-05-24] MEDS: BENZTROPINE MESYLATE 1 MG TAB PO SCH ×3 (09:41→18:39)
[2017-05-24] MEDS: DIVALPROEX SODIUM E.R. 500 MG TAB PO SCH ×2 (09:41→21:14)
[2017-05-24] MEDS: HALOPERIDOL 10 MG TAB PO SCH ×3 (09:41→18:39)
--- NOTE | 2017-05-24 12:11 | HHI.PYPN ---
Subjective Remarks Patient seen in dayroom with floor staff, chart review, patient discussed with nurse. Patient appears somewhat contrite today now saying he wishes to be transferred [id number]. His vague about continued voices. Still has little insight into the explosiveness and intrusiveness of his behavior. Patient was discussed with treatment team today. It is the consensus of the treatment team that reviewing patient's EMR his multiple hospitalizations the [facility] referral is indicated. Thus I'll order the initiation of referral to the [facility] Review of Systems Except as stated in HPI: all other systems reviewed are Neg Mental Status Examination Appearance: Appropriate Consciousness: Alert Orientation: Person, Place Motor Activity: Normal gait Speech: Hesitant, Slow Language: Adequate Fund of Knowledge: Inadequate Attention and Concentration: Other (fair) Memory: Unremarkable Mood: Sad, Other (guarded and vigilant) Affect: Other (decreased range and intensity) Thought Process & Associations: Other (simple/concrete) Thought Content: Hallucinations Hallucination Type: Auditory Delusion Type: None Suicidal Ideation: Yes Suicidal Plan: No Suicidal Intention: No Homicidal Ideation: No Homicidal Plan: No Homicidal Intention: No Insight: Poor Judgment: Poor Results Vitals/IOs Vital Signs Date Time Temp Pulse Resp B/P (MAP) Pulse Ox O2 Delivery O2 Flow Rate FiO2 05/24/17 06:38 96.8 62 17 152/67 (95) 98 05/20/17 11:30 Room Air Assessment & Plan Problem List: (1) Schizoaffective disorder, depressive type ICD Codes: F25.1 - Schizoaffective disorder, depressive type Assessment & Plan Estimated LOS: days patient continues psychotic delusional with insight. We' ll start state referral packet Justification for Cont. Inpt. At this time patient will decompensate a placed in a lower level of care Discharge Planning Start state referral packet Request HC Surrog/Guard Advoc?: Yes Anthony Boswell MD May 24, 2017 12:11
--- NOTE | 2017-05-24 15:14 | PD.TTN ---
Patient Problems 1. Discharge planning 2. Medication compliance 3. Knowledge deficit 4. Lack of coping skills Progress Toward Goals Provider Present: Dr. Melquiades Boswell Provider Input: Initiate state referral Psychiatric Counselors Present: Nitesh Rodriguez Jr., [facility] Psych Therapist Input: Sister (RUMA) reports she would like pt placed in [facility]. Group Spec/RT/OT/CUBA Input: Not attending group Nitesh Rodriguez Jr, [employer] PERSON May 24, 2017 15:14
[2017-05-24 17:01] VITALS: BP 149/86; PULSE 70; RESP 18; TEMP 98.1; O2SAT 99
[2017-05-24] MEDS: OLANZapine 10 MG TAB PO SCH (21:12)
[2017-05-24] MEDS: MIRTAZAPINE 15 MG TAB PO SCH (21:13)
[2017-05-24] MEDS: ALUMINUM/MAGNESIUM/SIMETH 30 ML CUP PO PRN (21:14)
--- NOTE | 2017-05-24 22:23 | RADRPT ---
EXAM DATE/TIME: 05/24/2017 21:23 [place] COMPARISON: No previous studies available for comparison. INDICATIONS : Right hand pain and swelling for 2 days. MEDICAL HISTORY : None. SURGICAL HISTORY : None. ENCOUNTER: Initial ACUITY: 2 days PAIN SCORE: 6/10 LOCATION: Right hand. FINDINGS: Three view examination of the right hand demonstrates no soft tissue swelling, dislocation, or fractu re. The carpal bones appear intact. The interphalangeal and metacarpophalangeal joints are intact. Bony mineralization is normal. CONCLUSION: The osseous structures of the hand are grossly intact. Sukumar Butts MD on May 24, 2017 at 22:22 Board Certified Radiologist. This report was verified electronically.
[2017-05-25 06:26] VITALS: BP 151/88; PULSE 78; RESP 18; TEMP 96.7
[2017-05-25] MEDS: BENZTROPINE MESYLATE 1 MG TAB PO SCH ×3 (09:00→17:48)
[2017-05-25] MEDS: DIVALPROEX SODIUM E.R. 500 MG TAB PO SCH ×2 (09:07→19:44)
[2017-05-25] MEDS: HALOPERIDOL 10 MG TAB PO SCH ×3 (09:08→17:48)
--- NOTE | 2017-05-25 15:19 | HHI.PYPN ---
Subjective Remarks Patient seen in [place] with nurse Cameron, chart review, patient discussed with nurse , patient compliant medications. Patient remains somewhat depressed contrite and it childlike supportive manner. Asking when he can go back to his detention, asking medication go home with his family, asking when he can be transferred to 2600, asking not to go to court. Patient showing no insight into his disease. We'll check Depakote blood level over in a.m. Review of Systems Except as stated in HPI: all other systems reviewed are Neg Mental Status Examination Appearance: Appropriate Consciousness: Alert Orientation: Person, Place Motor Activity: Normal gait Speech: Hesitant, Slow Language: Adequate Fund of Knowledge: Inadequate Attention and Concentration: Other (fair) Memory: Unremarkable Mood: Sad, Other (guarded and vigilant) Affect: Other (decreased range and intensity) Thought Process & Associations: Other (simple/concrete) Thought Content: Hallucinations Hallucination Type: Auditory Delusion Type: None Suicidal Ideation: Yes Suicidal Plan: No Suicidal Intention: No Homicidal Ideation: No Homicidal Plan: No Homicidal Intention: No Insight: Poor Judgment: Poor Results Vitals/IOs Vital Signs Date Time Temp Pulse Resp B/P (MAP) Pulse Ox O2 Delivery O2 Flow Rate FiO2 05/25/17 06:26 96.7 78 18 151/88 (109) 05/24/17 17:01 99 Assessment & Plan Problem List: (1) Schizoaffective disorder, depressive type ICD Codes: F25.1 - Schizoaffective disorder, depressive type Assessment & Plan Estimated LOS: days patient remains paranoid psychotic with no insight into his issues. His intellectual deficits are also quite prominent. [facility] hospital referral packet has been initiated Justification for Cont. Inpt. At this time patient decompensated place to the lower level of care Discharge Planning [facility] hospital packet initiated Request HC Surrog/Guard Advoc?: Yes Anthony Boswell MD May 25, 2017 15:19
[2017-05-25 18:28] VITALS: BP 149/80; PULSE 74; RESP 18; TEMP 98.3; O2SAT 98
[2017-05-25] MEDS: MIRTAZAPINE 15 MG TAB PO SCH (19:44)
[2017-05-25] MEDS: OLANZapine 10 MG TAB PO SCH (19:44)
[2017-05-25] MEDS: hydrOXYzine HCL 50 MG TAB PO PRN (19:44)
[2017-05-26] MEDS: HALOPERIDOL 10 MG TAB PO SCH ×3 (09:00→18:00)
[2017-05-26] MEDS: DIVALPROEX SODIUM E.R. 500 MG TAB PO SCH ×2 (09:00→20:58)
[2017-05-26] MEDS: BENZTROPINE MESYLATE 1 MG TAB PO SCH ×3 (09:00→18:00)
--- NOTE | 2017-05-26 14:30 | HHI.PYPN ---
Subjective Remarks Patient seen in [place] with nurse Lien, chart reviewed, patient discussed with nurse. Patient Depakote level drawn the same is 51 on 500 a.m./1000 at bedtime Depakote. Will increase Depakote in the a.m. to 750 mg repeat blood level . Patient continues showing no insight into her disease is intellectual disability I've eosinophils responses he is quite childlike petulant and at times showing some mild temper and paranoia. He perseverates on wanting to be transferred 2600, on the treatment and he is penitentiary, and promising to be good. (Patient's 10th psychiatric hospitalization since the beginning of 2016. Patient scheduled for [facility] tomorrow Review of Systems Except as stated in HPI: all other systems reviewed are Neg Mental Status Examination Appearance: Appropriate Consciousness: Alert Orientation: Person, Place Motor Activity: Normal gait Speech: Hesitant, Slow Language: Adequate Fund of Knowledge: Inadequate Attention and Concentration: Other (fair) Memory: Unremarkable Mood: Sad, Other (guarded and vigilant) Affect: Other (decreased range and intensity) Thought Process & Associations: Other (simple/concrete) Thought Content: Hallucinations Hallucination Type: Auditory Delusion Type: None Suicidal Ideation: Yes Suicidal Plan: No Suicidal Intention: No Homicidal Ideation: No Homicidal Plan: No Homicidal Intention: No Insight: Poor Judgment: Poor Results Labs Test 05/26/17 05:45 Valproic Acid (Depakene) Level 51 MCG/ML Vitals/IOs Vital Signs Date Time Temp Pulse Resp B/P (MAP) Pulse Ox O2 Delivery O2 Flow Rate FiO2 05/25/17 18:28 98.3 74 18 149/80 (103) 98 Assessment & Plan Problem List: (1) Schizoaffective disorder, depressive type ICD Codes: F25.1 - Schizoaffective disorder, depressive type Assessment & Plan Estimated LOS: days patient remained psychotic volatile with no significant insight. Though is compliant with medications. She medication adjustment above. Patient scheduled for [place] tomorrow Justification for Cont. Inpt. At this time patient will decompensate a place to the lower level of care Discharge Planning State packet referral sent patient scheduled for [place] tomorrow Request HC Surrog/Guard Advoc?: Yes Anthony Boswell MD May 26, 2017 14:29
[2017-05-26 17:16] VITALS: BP 139/84; PULSE 73; RESP 18; TEMP 98.8; O2SAT 98
[2017-05-26] MEDS: MIRTAZAPINE 15 MG TAB PO SCH (20:57)
[2017-05-26] MEDS: OLANZapine 10 MG TAB PO SCH (20:58)
[2017-05-27 06:14] VITALS: BP 173/91; PULSE 65; RESP 17; TEMP 97.2; O2SAT 99
[2017-05-27] MEDS: DIVALPROEX SODIUM E.R. 250 MG TAB PO SCH (09:22)
[2017-05-27] MEDS: HALOPERIDOL 10 MG TAB PO SCH ×3 (09:22→18:24)
[2017-05-27] MEDS: BENZTROPINE MESYLATE 1 MG TAB PO SCH ×3 (09:23→18:24)
--- NOTE | 2017-05-27 14:17 | HHI.PYPN ---
Subjective Remarks Patient seen in [place], patient was retained by Leeroy Mistry with sister to be guardian advocate. Patient showed the behaviors have been consistent throughout this hospitalization. The some confusion with very poor insight into his disease. His cognitive deficits also evident. Issues compliant medications. This is also consistent with his multiple prior hospitalizations. However is also noted that he is consistently noncompliant with medications after discharge becoming more more aggressive at the various placements. Thus we'll start the state referral packet Review of Systems Except as stated in HPI: all other systems reviewed are Neg Mental Status Examination Appearance: Appropriate Consciousness: Alert Orientation: Person, Place Motor Activity: Normal gait Speech: Hesitant, Slow Language: Adequate Fund of Knowledge: Inadequate Attention and Concentration: Other (fair) Memory: Unremarkable Mood: Sad, Other (guarded and vigilant) Affect: Other (decreased range and intensity) Thought Process & Associations: Other (simple/concrete) Thought Content: Hallucinations Hallucination Type: Auditory Delusion Type: None Suicidal Ideation: Yes Suicidal Plan: No Suicidal Intention: No Homicidal Ideation: No Homicidal Plan: No Homicidal Intention: No Insight: Poor Judgment: Poor Results Vitals/IOs Vital Signs Date Time Temp Pulse Resp B/P (MAP) Pulse Ox O2 Delivery O2 Flow Rate FiO2 05/27/17 06:14 97.2 65 17 173/91 (118) 99 Assessment & Plan Problem List: (1) Schizoaffective disorder, depressive type ICD Codes: F25.1 - Schizoaffective disorder, depressive type Assessment & Plan Estimated LOS: days patient continues psychotic guarded paranoid and vigilant. For now continue treatment. Patient retained by Judge Mistry Justification for Cont. Inpt. At this time patient with decompensated placed in a lower level of care Discharge Planning State packet referral sent Request HC Surrog/Guard Advoc?: Yes Anthony Boswell MD May 27, 2017 14:17
[2017-05-27 18:23] VITALS: PULSE 79; RESP 18; TEMP 97.6; O2SAT 96
[2017-05-27] MEDS: MIRTAZAPINE 15 MG TAB PO SCH (21:00)
[2017-05-27] MEDS: OLANZapine 10 MG TAB PO SCH (21:00)
[2017-05-27] MEDS: DIVALPROEX SODIUM E.R. 500 MG TAB PO SCH (21:00)
[2017-05-28 05:56] VITALS: BP 136/70; PULSE 58; RESP 17; TEMP 97.1; O2SAT 97
[2017-05-28] MEDS: DIVALPROEX SODIUM E.R. 250 MG TAB PO SCH (09:40)
[2017-05-28] MEDS: BENZTROPINE MESYLATE 1 MG TAB PO SCH ×3 (09:40→18:20)
[2017-05-28] MEDS: HALOPERIDOL 10 MG TAB PO SCH ×3 (09:40→18:20)
--- NOTE | 2017-05-28 14:50 | HHI.PYPN ---
Subjective Remarks Patient seen in day room with nurse Ruthy. Patient continues intrusive irritable quite anxious and somewhat childlike in his behaviors patient showing no insight into his behaviors taking no responsibility for his behaviors. When confronted with behaviors ages lowers his head and his eyes and says "I'm sorry ". He continually asked for transferred 2600, ES for discharge, as be transferred to the [facility]. For now will continue treatment no change he has started the [facility] referral packet for this gentleman Review of Systems Except as stated in HPI: all other systems reviewed are Neg Mental Status Examination Appearance: Appropriate Consciousness: Alert Orientation: Person, Place Motor Activity: Normal gait Speech: Hesitant, Slow Language: Adequate Fund of Knowledge: Inadequate Attention and Concentration: Other (fair) Memory: Unremarkable Mood: Sad, Other (guarded and vigilant) Affect: Other (decreased range and intensity) Thought Process & Associations: Other (simple/concrete) Thought Content: Hallucinations Hallucination Type: Auditory Delusion Type: None Suicidal Ideation: Yes Suicidal Plan: No Suicidal Intention: No Homicidal Ideation: No Homicidal Plan: No Homicidal Intention: No Insight: Poor Judgment: Poor Results Vitals/IOs Vital Signs Date Time Temp Pulse Resp B/P (MAP) Pulse Ox O2 Delivery O2 Flow Rate FiO2 05/28/17 05:56 97.1 58 17 136/70 (92) 97 Assessment & Plan Problem List: (1) Schizoaffective disorder, depressive type ICD Codes: F25.1 - Schizoaffective disorder, depressive type Assessment & Plan Estimated LOS: days patient continues paranoid psychotic and childlike. No insight. Compliant medication Justification for Cont. Inpt. At this time patient will decompensate the placed a lower level of care Discharge Planning State packet has been started Request HC Surrog/Guard Advoc?: Yes Anthony Boswell MD May 28, 2017 14:50
[2017-05-28 18:12] VITALS: BP_SYST 158; BP_SYST 178; BP_DIAS 86; PULSE 82; RESP 17; TEMP 97.3; O2SAT 97
[2017-05-28] MEDS: hydrOXYzine HCL 50 MG TAB PO PRN (19:39)
[2017-05-28] MEDS: OLANZapine 10 MG TAB PO SCH (20:24)
[2017-05-28] MEDS: MIRTAZAPINE 15 MG TAB PO SCH (20:24)
[2017-05-28] MEDS: DIVALPROEX SODIUM E.R. 500 MG TAB PO SCH (20:24)
[2017-05-29 06:35] VITALS: BP 133/81; PULSE 77; RESP 17; TEMP 97.4; O2SAT 98
[2017-05-29] MEDS: BENZTROPINE MESYLATE 1 MG TAB PO SCH ×3 (09:39→17:55)
[2017-05-29] MEDS: HALOPERIDOL 10 MG TAB PO SCH ×3 (09:39→17:55)
[2017-05-29] MEDS: DIVALPROEX SODIUM E.R. 250 MG TAB PO SCH (09:40)
--- NOTE | 2017-05-29 13:40 | HHI.PYPN ---
Subjective Remarks Pt seen and discussed with staff. He has been compliant with medications and is tolerating without side effects. Staff report that pt has been very anxious today. He is impulsive and had to be redirected from pulling pants down on unit. No SI/HI Mental Status Examination Appearance: Appropriate Consciousness: Alert Orientation: Person, Place Motor Activity: Normal gait Speech: Hesitant, Slow Language: Adequate Fund of Knowledge: Inadequate Attention and Concentration: Other (fair) Memory: Unremarkable Mood: Sad, Other (guarded and vigilant) Affect: Other (decreased range and intensity) Thought Process & Associations: Other (simple/concrete) Thought Content: Hallucinations Hallucination Type: Auditory (decreased) Delusion Type: None Suicidal Ideation: Yes Suicidal Plan: No Suicidal Intention: No Homicidal Ideation: No Homicidal Plan: No Homicidal Intention: No Insight: Poor Judgment: Poor Results Vitals/IOs Vital Signs Date Time Temp Pulse Resp B/P (MAP) Pulse Ox O2 Delivery O2 Flow Rate FiO2 05/29/17 06:35 97.4 77 17 133/81 (98) 98 Assessment & Plan Problem List: (1) Schizoaffective disorder, depressive type ICD Codes: F25.1 - Schizoaffective disorder, depressive type Assessment & Plan Continue current tx plan. Estimated LOS: days Justification for Cont. Inpt. impairments in social functioning Request HC Surrog/Guard Advoc?: Yes Kiersten Silver MD May 29, 2017 13:40
[2017-05-29] MEDS: ALUMINUM/MAGNESIUM/SIMETH 30 ML CUP PO PRN (17:56)
[2017-05-29] MEDS: DIVALPROEX SODIUM E.R. 500 MG TAB PO SCH (21:29)
[2017-05-29] MEDS: MIRTAZAPINE 15 MG TAB PO SCH (21:29)
[2017-05-29] MEDS: OLANZapine 10 MG TAB PO SCH (21:29)
[2017-05-29] MEDS: hydrOXYzine HCL 50 MG TAB PO PRN (21:29)
[2017-05-30 06:00] VITALS: BP 138/78; PULSE 64; RESP 18; TEMP 98.2; O2SAT 96
[2017-05-30] MEDS: BENZTROPINE MESYLATE 1 MG TAB PO SCH ×3 (08:32→17:15)
[2017-05-30] MEDS: HALOPERIDOL 10 MG TAB PO SCH ×3 (08:32→17:15)
[2017-05-30] MEDS: DIVALPROEX SODIUM E.R. 250 MG TAB PO SCH (08:33)
--- NOTE | 2017-05-30 15:35 | HHI.PYPN ---
Subjective Remarks Pt seen and discussed with staff. He remains impulsive with poor boundaries. He had to be redirected by RN for attempting to garbage pick up worker peer. He is compliant with medications. NO SI/HI Mental Status Examination Appearance: Appropriate Consciousness: Alert Orientation: Person, Place Motor Activity: Normal gait Speech: Hesitant, Slow Language: Adequate Fund of Knowledge: Inadequate Attention and Concentration: Other (fair) Memory: Unremarkable Mood: Sad, Other (guarded and vigilant) Affect: Other (decreased range and intensity) Thought Process & Associations: Other (simple/concrete) Thought Content: Hallucinations Hallucination Type: Auditory Delusion Type: None Suicidal Ideation: Yes Suicidal Plan: No Suicidal Intention: No Homicidal Ideation: No Homicidal Plan: No Homicidal Intention: No Insight: Poor Judgment: Poor Results Labs Test 05/30/17 07:30 Valproic Acid (Depakene) Level 35 MCG/ML Vitals/IOs Vital Signs Date Time Temp Pulse Resp B/P (MAP) Pulse Ox O2 Delivery O2 Flow Rate FiO2 05/30/17 06:00 98.2 64 18 138/78 (98) 96 Assessment & Plan Problem List: (1) Schizoaffective disorder, depressive type ICD Codes: F25.1 - Schizoaffective disorder, depressive type Assessment & Plan Continue current tx plan. Estimated LOS: days Justification for Cont. Inpt. poor impulse control Request HC Surrog/Guard Advoc?: Yes Kiersten Silver MD May 30, 2017 15:35
[2017-05-30 17:05] VITALS: BP 137/80; PULSE 72; RESP 18; TEMP 97.7; O2SAT 95
[2017-05-30] MEDS: DIVALPROEX SODIUM E.R. 500 MG TAB PO SCH (21:09)
[2017-05-30] MEDS: MIRTAZAPINE 15 MG TAB PO SCH (21:10)
[2017-05-30] MEDS: hydrOXYzine HCL 50 MG TAB PO PRN (21:10)
[2017-05-30] MEDS: OLANZapine 10 MG TAB PO SCH (21:10)
[2017-05-31 05:55] VITALS: BP 167/90; PULSE 66; RESP 18; TEMP 98.2; O2SAT 99
[2017-05-31] MEDS: BENZTROPINE MESYLATE 1 MG TAB PO SCH ×3 (09:00→17:28)
[2017-05-31] MEDS: HALOPERIDOL 10 MG TAB PO SCH ×3 (09:09→17:28)
[2017-05-31] MEDS: DIVALPROEX SODIUM E.R. 250 MG TAB PO SCH (09:10)
--- NOTE | 2017-05-31 09:30 | PD.TTN ---
Patient Problems 1. Discharge planning 2. Medication compliance 3. Knowledge deficit 4. Lack of coping skills Progress Toward Goals Provider Present: Dr. Melquiades Boswell Provider Input: Initiate state referral, Pt needs help with impulse control Psychiatric Counselors Present: Nitesh Rodriguez Jr., [facility] Psych Therapist Input: Sister (RUMA) reports she would like pt placed in [facility]. Pt continues to comply with treatment, with difficulty with impulse control. Group Spec/RT/OT/CUBA Input: Not attending group Attends selective groups Nitesh Rodriguez Jr, RN OR LVN May 31, 2017 09:30
[2017-05-31] MEDS: LORazepam 1 MG TAB PO PRN ×2 (13:56→21:51)
--- NOTE | 2017-05-31 14:54 | HHI.PYPN ---
Subjective Remarks Patient seen in [place] with nurse Андрей, chart review, patient discussed with nurse patient still somewhat aroused anxious though this is what appears to be a chronic behavior. He states he did talk to his sister. He states he knows he might not be able go back to his old correction that we have to find him a new one. That this may take time. Much depends on his behavior. Of interest epical level drawn this a.m. was 45. Will increase a.m. Depakote to 1000 mg continue at bedtime dose no change in check Depakote blood level on 06/04/17 Review of Systems Except as stated in HPI: all other systems reviewed are Neg Mental Status Examination Appearance: Appropriate Consciousness: Alert Orientation: Person, Place Motor Activity: Normal gait Speech: Hesitant, Slow Language: Adequate Fund of Knowledge: Inadequate Attention and Concentration: Other (fair) Memory: Unremarkable Mood: Sad, Other (guarded and vigilant) Affect: Other (decreased range and intensity) Thought Process & Associations: Other (simple/concrete) Thought Content: Hallucinations Hallucination Type: Auditory Delusion Type: None Suicidal Ideation: Yes Suicidal Plan: No Suicidal Intention: No Homicidal Ideation: No Homicidal Plan: No Homicidal Intention: No Insight: Poor Judgment: Poor Results Labs Test 05/31/17 05:23 Valproic Acid (Depakene) Level 45 MCG/ML Vitals/IOs Vital Signs Date Time Temp Pulse Resp B/P (MAP) Pulse Ox O2 Delivery O2 Flow Rate FiO2 05/31/17 05:55 98.2 66 18 167/90 (115) 99 Assessment & Plan Problem List: (1) Schizoaffective disorder, depressive type ICD Codes: F25.1 - Schizoaffective disorder, depressive type Assessment & Plan Estimated LOS: days patient still anxious somewhat delusional and childlike, though he is making good attempts at behavior control. She medication adjustment above Justification for Cont. Inpt. At this time patient decompensated placed a lower level of care Discharge Planning Placement may become problematic Request HC Surrog/Guard Advoc?: Yes Anthony Boswell MD May 31, 2017 14:54
[2017-05-31 15:31] VITALS: BP 142/89; PULSE 96; RESP 18; TEMP 97.5; O2SAT 96
[2017-05-31] MEDS: DIVALPROEX SODIUM E.R. 500 MG TAB PO SCH (20:58)
[2017-05-31] MEDS: MIRTAZAPINE 15 MG TAB PO SCH (20:59)
[2017-05-31] MEDS: OLANZapine 10 MG TAB PO SCH (20:59)
[2017-05-31] MEDS: ALUMINUM/MAGNESIUM/SIMETH 30 ML CUP PO PRN (21:01)
[2017-05-31] MEDS: MAGNESIUM HYDROXIDE SUSP 30 ML CUP PO PRN (21:33)
[2017-06-01 06:31] VITALS: BP 156/87; PULSE 80; RESP 18; TEMP 97.7; O2SAT 97
[2017-06-01] MEDS: HALOPERIDOL 10 MG TAB PO SCH ×3 (08:46→17:00)
[2017-06-01] MEDS: BENZTROPINE MESYLATE 1 MG TAB PO SCH ×3 (08:46→17:00)
[2017-06-01] MEDS: DIVALPROEX SODIUM E.R. 500 MG TAB PO SCH ×2 (08:46→20:38)
--- NOTE | 2017-06-01 12:39 | HHI.PYPN ---
Subjective Remarks Patient seen in [place] with forceps, chart reviewed, patient discussed with nurse. Patient compliant with medications. Is been no behavior problems on 2599. Patient still childlike in his responses. With poor eye contact. Though is able to make his needs known. He denies suicidality homicidality voices or visions at this time Review of Systems Except as stated in HPI: all other systems reviewed are Neg Mental Status Examination Appearance: Appropriate Consciousness: Alert Orientation: Person, Place Motor Activity: Normal gait Speech: Hesitant, Slow Language: Adequate Fund of Knowledge: Inadequate Attention and Concentration: Other (fair) Memory: Unremarkable Mood: Sad, Other (guarded and vigilant) Affect: Other (decreased range and intensity) Thought Process & Associations: Other (simple/concrete) Thought Content: Hallucinations Hallucination Type: Auditory Delusion Type: None Suicidal Ideation: Yes Suicidal Plan: No Suicidal Intention: No Homicidal Ideation: No Homicidal Plan: No Homicidal Intention: No Insight: Poor Judgment: Poor Results Vitals/IOs Vital Signs Date Time Temp Pulse Resp B/P (MAP) Pulse Ox O2 Delivery O2 Flow Rate FiO2 06/01/17 06:31 97.7 80 18 156/87 (110) 97 Assessment & Plan Problem List: (1) Schizoaffective disorder, depressive type ICD Codes: F25.1 - Schizoaffective disorder, depressive type Assessment & Plan Estimated LOS: days patient remains vigilant somewhat paranoid and depressed though no behavioral problems, placement may become problematic Justification for Cont. Inpt. At this time patient will decompensate a place to the lower level of care Discharge Planning Placement may become problematic Request HC Surrog/Guard Advoc?: Yes Anthony Boswell MD Jun 01, 2017 12:39
[2017-06-01] MEDS: LORazepam 1 MG TAB PO PRN (17:00)
[2017-06-01 18:32] VITALS: BP 150/84; PULSE 104; RESP 18; TEMP 98.1; O2SAT 99
[2017-06-01] MEDS: OLANZapine 10 MG TAB PO SCH (20:37)
[2017-06-01] MEDS: MIRTAZAPINE 15 MG TAB PO SCH (20:38)
[2017-06-02 05:59] VITALS: BP 159/82; PULSE 61; RESP 16; TEMP 97.9; O2SAT 98
[2017-06-02] MEDS: DIVALPROEX SODIUM E.R. 500 MG TAB PO SCH ×2 (08:55→20:15)
[2017-06-02] MEDS: HALOPERIDOL 10 MG TAB PO SCH ×3 (08:55→17:11)
[2017-06-02] MEDS: BENZTROPINE MESYLATE 1 MG TAB PO SCH ×3 (09:36→17:11)
--- NOTE | 2017-06-02 14:39 | HHI.PYPN ---
Subjective Remarks Patient seen in dayroom the floor staff, chart reviewed, patient discussed with nurse. Patient compliant medications. Continue to focus on discharge though he knows placement is becoming more problematic and that he will need to remain here for some significant period of time. We'll also start of the state referral packet with him. He denies voices at this time. He continues quite childlike impulsive and in the way attention seeking. Review of Systems Except as stated in HPI: all other systems reviewed are Neg Mental Status Examination Appearance: Appropriate Consciousness: Alert Orientation: Person, Place Motor Activity: Normal gait Speech: Hesitant, Slow Language: Adequate Fund of Knowledge: Inadequate Attention and Concentration: Other (fair) Memory: Unremarkable Mood: Sad, Other (guarded and vigilant) Affect: Other (decreased range and intensity) Thought Process & Associations: Other (simple/concrete) Thought Content: Hallucinations Hallucination Type: Auditory Delusion Type: None Suicidal Ideation: Yes Suicidal Plan: No Suicidal Intention: No Homicidal Ideation: No Homicidal Plan: No Homicidal Intention: No Insight: Poor Judgment: Poor Results Vitals/IOs Vital Signs Date Time Temp Pulse Resp B/P (MAP) Pulse Ox O2 Delivery O2 Flow Rate FiO2 06/02/17 05:59 97.9 61 16 159/82 (107) 98 Assessment & Plan Problem List: (1) Schizoaffective disorder, depressive type ICD Codes: F25.1 - Schizoaffective disorder, depressive type Assessment & Plan Estimated LOS: days patient continues child like the somewhat vigilant impulsive and intrusive. For now continue treatment Justification for Cont. Inpt. At this time patient will decompensate a placed a lower level of care Discharge Planning Placement may become quite problematic Request HC Surrog/Guard Advoc?: Yes Anthony Boswell MD Jun 02, 2017 14:39
[2017-06-02 18:12] VITALS: BP 149/81; PULSE 84; RESP 18; TEMP 97.5; O2SAT 84
[2017-06-02] MEDS: OLANZapine 10 MG TAB PO SCH (20:15)
[2017-06-02] MEDS: hydrOXYzine HCL 50 MG TAB PO PRN (20:15)
[2017-06-02] MEDS: MIRTAZAPINE 15 MG TAB PO SCH (20:15)
[2017-06-02 20:29] LABS: BILIRUBIN, URINE NEG (NEG); BLOOD, URINE TRACE (NEG); GLUCOSE,URINE NEG (NEG); KETONE, URINE NEG (NEG); NITRITE,URINE NEG (NEG); URINE COLOR LIGHT-YELLOW (YELLW/STRAW); URINE LEUKOCYTE ESTERASE NEG (NEG)
[2017-06-02] MEDS: LORazepam 1 MG TAB PO PRN (20:41)
[2017-06-02 20:59] VITALS: O2SAT 96
[2017-06-02] MEDS: ALBUTEROL SULFATE 90 MCG/ACT HFA 8 GM INHALER INH PRN (21:15)
[2017-06-03 05:50] VITALS: BP 147/92; PULSE 77; RESP 20; TEMP 98.4; O2SAT 98
[2017-06-03] MEDS: DIVALPROEX SODIUM E.R. 500 MG TAB PO SCH ×2 (08:32→21:00)
[2017-06-03] MEDS: BENZTROPINE MESYLATE 1 MG TAB PO SCH ×3 (08:32→18:00)
[2017-06-03] MEDS: HALOPERIDOL 10 MG TAB PO SCH ×3 (08:32→18:00)
[2017-06-03] MEDS: ALBUTEROL SULFATE 90 MCG/ACT HFA 8 GM INHALER INH PRN (09:02)
--- NOTE | 2017-06-03 13:48 | HHI.PYPN ---
Subjective Remarks Patient seen in [place] with nurse Mukesh, chart reviewed, patient discussed with nurse. The somewhat elevated exuberant decreased range intensity was affect. Today somewhat jokingly asking for double portions on meals. I question the veracity of this since he is somewhat heavy. I told him I would consider this and let him know. Otherwise patient coping with placement issues. Review of Systems Except as stated in HPI: all other systems reviewed are Neg Mental Status Examination Appearance: Appropriate Consciousness: Alert Orientation: Person, Place Motor Activity: Normal gait Speech: Hesitant, Slow Language: Adequate Fund of Knowledge: Inadequate Attention and Concentration: Other (fair) Memory: Unremarkable Mood: Sad, Other (guarded and vigilant) Affect: Other (decreased range and intensity) Thought Process & Associations: Other (simple/concrete) Thought Content: Hallucinations Hallucination Type: Auditory Delusion Type: None Suicidal Ideation: Yes Suicidal Plan: No Suicidal Intention: No Homicidal Ideation: No Homicidal Plan: No Homicidal Intention: No Insight: Poor Judgment: Poor Results Labs Test 06/02/17 19:35 Urine Color LIGHT-YELLOW Urine Turbidity CLEAR Urine pH 7.0 Urine Specific [place] 1.002 Urine Protein NEG mg/dL Urine Glucose (UA) NEG mg/dL Urine Ketones NEG mg/dL Urine Occult Blood TRACE Urine Nitrite NEG Urine Bilirubin NEG Urine Urobilinogen LESS THAN 2.0 MG/DL Urine Leukocyte Esterase NEG Urine WBC LESS THAN 1 /hpf Microscopic Urinalysis Comment CULT NOT INDICATED Vitals/IOs Vital Signs Date Time Temp Pulse Resp B/P (MAP) Pulse Ox O2 Delivery O2 Flow Rate FiO2 06/03/17 05:50 98.4 77 20 147/92 (110) 98 Assessment & Plan Problem List: (1) Schizoaffective disorder, depressive type ICD Codes: F25.1 - Schizoaffective disorder, depressive type Assessment & Plan Estimated LOS: days patient continue somewhat intrusive loud at times vigilant but overall showing some good self-control. Continue to await word from [facility]. We continue to work on finding an appropriate placement for this man Justification for Cont. Inpt. At this time patient would decompensated placed in a lower level of care Discharge Planning To be determined Request HC Surrog/Guard Advoc?: Yes Anthony Boswell MD Jun 03, 2017 13:48
[2017-06-03 18:27] VITALS: BP 155/77; PULSE 98; RESP 18; TEMP 98.1; O2SAT 96
[2017-06-03] MEDS: OLANZapine 10 MG TAB PO SCH (21:00)
[2017-06-03] MEDS: MIRTAZAPINE 15 MG TAB PO SCH (21:00)
[2017-06-04 05:38] VITALS: BP 141/79; PULSE 79; RESP 18; TEMP 97.6
[2017-06-04] MEDS: HALOPERIDOL 10 MG TAB PO SCH ×3 (09:27→18:20)
[2017-06-04] MEDS: BENZTROPINE MESYLATE 1 MG TAB PO SCH ×3 (09:27→18:20)
[2017-06-04] MEDS: DIVALPROEX SODIUM E.R. 500 MG TAB PO SCH ×2 (09:28→21:07)
--- NOTE | 2017-06-04 12:07 | HHI.PYPN ---
Subjective Remarks Patient seen in [place] with nurse Kat, chart reviewed, patient discussed with nurse. Patient overall calm cooperative continues pleasant with me, continues processing the issues related to finding an appropriate placement for him either in a new correction or through our state referral. Patient also complaining of increased asthmatic type problems with difficulty breathing upon exertion. We'll have hospitalist consult Review of Systems Respiratory: COMPLAINS OF: Wheezing, Shortness of breath Except as stated in HPI: all other systems reviewed are Neg Mental Status Examination Appearance: Appropriate Consciousness: Alert Orientation: Person, Place Motor Activity: Normal gait Speech: Hesitant, Slow Language: Adequate Fund of Knowledge: Inadequate Attention and Concentration: Other (fair) Memory: Unremarkable Mood: Sad, Other (guarded and vigilant) Affect: Other (decreased range and intensity) Thought Process & Associations: Other (simple/concrete) Thought Content: Hallucinations Hallucination Type: Auditory Delusion Type: None Suicidal Ideation: Yes Suicidal Plan: No Suicidal Intention: No Homicidal Ideation: No Homicidal Plan: No Homicidal Intention: No Insight: Poor Judgment: Poor Results Labs Test 06/04/17 06:50 Valproic Acid (Depakene) Level 50 MCG/ML Vitals/IOs Vital Signs Date Time Temp Pulse Resp B/P (MAP) Pulse Ox O2 Delivery O2 Flow Rate FiO2 06/04/17 05:38 97.6 79 18 141/79 (99) 06/03/17 18:27 96 Assessment & Plan Problem List: (1) Schizoaffective disorder, depressive type ICD Codes: F25.1 - Schizoaffective disorder, depressive type Assessment & Plan Estimated LOS: days there is no change in patient's behavior, he does complain of some mild shortness of breath and wheezing claiming some history of asthma. We'll have hospitalist consult will us. Justification for Cont. Inpt. This time patient will decompensate placed in a lower level of care Discharge Planning Continue to work with placement issues finding patient in the correction versus continued referral to state hospital Request HC Surrog/Guard Advoc?: Yes Anthony Boswell MD Jun 04, 2017 12:07
[2017-06-04] MEDS: ALBUTEROL SULFATE 90 MCG/ACT HFA 8 GM INHALER INH PRN (12:40)
[2017-06-04 18:07] VITALS: BP 162/98; PULSE 88; RESP 20; TEMP 98; O2SAT 97
[2017-06-04] MEDS: LORazepam 1 MG TAB PO PRN (21:07)
[2017-06-04] MEDS: MIRTAZAPINE 15 MG TAB PO SCH (21:08)
[2017-06-04] MEDS: OLANZapine 10 MG TAB PO SCH (21:09)
[2017-06-05 05:35] VITALS: BP 136/75; PULSE 72; RESP 18; TEMP 97.9; O2SAT 97
[2017-06-05] MEDS: HALOPERIDOL 10 MG TAB PO SCH ×3 (10:21→17:46)
[2017-06-05] MEDS: DIVALPROEX SODIUM E.R. 500 MG TAB PO SCH ×2 (10:22→20:00)
[2017-06-05] MEDS: BENZTROPINE MESYLATE 1 MG TAB PO SCH ×3 (10:23→17:47)
[2017-06-05] MEDS: ALUMINUM/MAGNESIUM/SIMETH 30 ML CUP PO PRN ×2 (10:25→20:34)
--- NOTE | 2017-06-05 13:24 | HHI.PYPN ---
Subjective Remarks Patient was seen and case discussed with nursing. Patient is pleasant and cooperative with exam. Behaving well on the unit. Compliant with his medications, no outbursts. Cognitive deficits are evident. Today, patient is complaining of urinary hesitancy with pain nursing will contact his medical team Mental Status Examination Appearance: Appropriate Consciousness: Alert Orientation: Person, Place Motor Activity: Normal gait Speech: Hesitant, Slow Language: Adequate Fund of Knowledge: Inadequate Attention and Concentration: Other (fair) Memory: Unremarkable Mood: Sad, Other (guarded and vigilant) Affect: Other (decreased range and intensity) Thought Process & Associations: Other (simple/concrete) Thought Content: Hallucinations Hallucination Type: Auditory (denies) Delusion Type: None Suicidal Ideation: Yes (fleeting) Suicidal Plan: No Suicidal Intention: No Homicidal Ideation: No Homicidal Plan: No Homicidal Intention: No Insight: Poor Judgment: Poor Results Vitals/IOs Vital Signs Date Time Temp Pulse Resp B/P (MAP) Pulse Ox O2 Delivery O2 Flow Rate FiO2 06/05/17 05:35 97.9 72 18 136/75 (95) 97 Assessment & Plan Problem List: (1) Schizoaffective disorder, depressive type ICD Codes: F25.1 - Schizoaffective disorder, depressive type Assessment & Plan Continue current treatment plan Justification for Cont. Inpt. Patient will decompensate in a less restrictive setting Request HC Surrog/Guard Advoc?: Yes Raphael Hazel DO Jun 05, 2017 13:24
[2017-06-05 15:46] LABS: BILIRUBIN, URINE NEG (NEG); BLOOD, URINE NEG (NEG); GLUCOSE,URINE NEG (NEG); KETONE, URINE NEG (NEG); NITRITE,URINE NEG (NEG); PH, URINE 7.5 (5.0-8.5); URINE COLOR LIGHT-YELLOW (YELLW/STRAW); URINE LEUKOCYTE ESTERASE NEG (NEG)
--- NOTE | 2017-06-05 16:54 | RADRPT ---
EXAM DATE/TIME: 06/05/2017 15:49 [place] COMPARISON: No previous studies available for comparison. INDICATIONS : Short of Breath MEDICAL HISTORY : None. SURGICAL HISTORY : None. ENCOUNTER: Initial ACUITY: 1 day PAIN SCORE: 7/10 LOCATION: chest FINDINGS: A single view of the chest demonstrates the lungs to be symmetrically aerated without evidence of mas s, infiltrate or effusion. The cardiomediastinal contours are unremarkable. Osseous structures are intact. CONCLUSION: No acute disease. Marck Mendoza MD on June 05, 2017 at 16:51 Board Certified Radiologist. This report was verified electronically.
--- NOTE | 2017-06-05 16:54 | PD.CONS ---
HPI Service [facility] Hospitalists Consult Requested By Psychiatric services Reason for Consult Medical management Primary Care Physician Bri Nolasco MD Diagnoses: History of Present Illness This is a 31-year-old male with a past medical history significant for schizophrenia, hepatitis B, MANISHA and hypertension who is domiciled in a custodial who was admitted to inpatient psychiatric unit under Baumann act as he was hearing voices telling him to kill himself. Reportedly, patient was recently discharged from the [facility] due to patient knocking over items inside the residence and punching from the bedroom braga. Hospitalist services have been consulted for medical management. Patient has complaints of shortness of breath with activity. He is requesting breathing treatments. He denies any fever or chills. He reports sharp intermittent midsternal chest pain but is unable to provide any aggravating or alleviating factors. He also reports 2 day history of dysuria and hematuria. He also states she's had diarrhea for the past 2 days with 2 loose stools yesterday and none thus far today. He denies any nausea, vomiting or abdominal pain. Nurse was unable to corroborate the patient has had hematuria and/or diarrhea. Review of Systems Except as stated in HPI: all other systems reviewed are Neg Past Family Social History Allergies: Coded Allergies: No Known Allergies (Verified Allergy, Unknown, 04/26/17) Past Medical History Hypertension Schizophrenia Hepatitis B Past Surgical History Left knee surgery Liver biopsy Reported Medications Olanzapine 10 Mg Tab 10 Mg PO HS Haloperidol 10 Mg Tab 10 Mg PO TID Depakote ER (Divalproex Sodium) 500 Mg Gina 500 Mg PO DIRECTED One by mouth a.m., 2 by mouth at bedtime Mirtazapine 45 Mg Tab 45 Mg PO HS Benztropine (Benztropine Mesylate) 0.5 Mg Tab 0.5 Mg PO TID Fluticasone Nasal Pinon 50 Mcg/Act Naspr 50 Mcg EACH NARE BID 50 mcg/spray Haldol Decanoate Inj (Haloperidol Decanoate) 100 Mg/Ml Inj 100 Mg IM Q28D Patient refused injection on 04/19/17 Mapap (Acetaminophen) 500 Mg Tab 1,000 Mg PO Q8H PRN Reguloid Powder (Psyllium Seed (with Sugar)) 369 Gm Powder Voltaren (Diclofenac Sodium) 1 % Gel..gram. 4 Gm TOPICAL BID Triamcinolone Topical (Triamcinolone Acetonide) 0.1% Cream 1 Applic TOPICAL DAILY Active Ordered Medications Current Medications Medications (Trade) Dose Ordered Sig/Bacilio Route Start Time Stop Time Status Last Admin (Cogentin) 0.5 mg TID PO 05/20/17 13:00 06/05/17 14:52 (Haldol) 10 mg TID PO 05/20/17 13:00 Future hold 06/05/17 14:49 (Remeron) 45 mg HS PO 05/20/17 21:00 Future hold 06/04/17 21:08 (ZyPREXA) 10 mg HS PO 05/20/17 21:00 Future hold 06/04/17 21:09 Patient Own Medication PT OWN MED: Diclofe... BID TOPICAL 05/20/17 21:00 Future Hold (Depakote Er) 1,000 mg HS PO 05/20/17 21:00 Future hold 06/04/17 21:07 (Ativan) 1 mg Q6H PRN PO 05/20/17 10:45 Future hold 06/04/17 21:07 (Ativan Inj) 1 mg Q6H PRN IM 05/20/17 10:45 Future hold (Tylenol) 650 mg Q4H PRN PO 05/20/17 10:45 (Milk Of Magnesia Liq) 30 ml DAILY PRN PO 05/20/17 10:45 05/31/17 21:33 (Mag-Al Plus Susp Liq) 30 ml Q6H PRN PO 05/20/17 10:45 06/05/17 10:25 (Pill Splitter) 1 ea UNSCH PRN OTHER 05/20/17 11:30 (Atarax) 50 mg Q6H PRN PO 05/21/17 15:15 Future hold 06/02/17 20:15 (Tylenol) 1,000 mg Q8H PRN PO 05/21/17 15:15 05/30/17 14:55 (Depakote Er) 1,000 mg DAILY PO 06/01/17 09:00 06/05/17 10:22 (Proair Hfa Inh) 1 puff Q6H PRN INH 06/02/17 21:15 06/04/17 12:40 Family History Mother, asthma Social History Patient has a history of tobacco use of one pack per day since the age of 10. He denies any alcohol use. He denies any illicit drug use. Physical Exam Vital Signs Vital Signs Date Time Temp Pulse Resp B/P (MAP) Pulse Ox O2 Delivery O2 Flow Rate FiO2 06/05/17 05:35 97.9 72 18 136/75 (95) 97 06/04/17 18:07 98.0 88 20 162/98 (119) 97 Physical Exam GENERAL: This is a well-nourished, well-developed male patient, in no apparent distress. Awake and alert. SKIN: No rashes, ecchymoses or lesions. Cool and dry. HEAD: Atraumatic. Normocephalic. No temporal or scalp tenderness. EYES: Pupils equal round and reactive, amblyopia. No scleral icterus. No injection or drainage. ENT: Nose without bleeding or purulent drainage. Throat without erythema, tonsillar hypertrophy or exudate. Uvula midline. Airway patent. NECK: Trachea midline. No lymphadenopathy. Supple, nontender, no meningeal signs. CARDIOVASCULAR: Regular rate and rhythm without murmurs, gallops, or rubs. RESPIRATORY: Clear to auscultation. Breath sounds equal bilaterally. No wheezes , rales, or rhonchi. GASTROINTESTINAL: Abdomen soft, non-tender, nondistended. No hepato-splenomegaly , or palpable masses. No guarding. MUSCULOSKELETAL: Extremities without clubbing, cyanosis, or edema. No joint tenderness, effusion, or edema noted. No calf tenderness. NEUROLOGICAL: Awake and alert. Cranial nerves II through XII grossly intact. Motor and sensory grossly within normal limits. No focal neurologic findings appreciated. Normal speech. Laboratory Laboratory Tests Test 06/05/17 13:50 Urine Color LIGHT-YELLOW Urine Turbidity CLEAR Urine pH 7.5 Urine Specific [place] 1.007 Urine Protein TRACE Urine Glucose (UA) NEG Urine Ketones NEG Urine Occult Blood NEG Urine Nitrite NEG Urine Bilirubin NEG Urine Urobilinogen LESS THAN 2.0 Urine Leukocyte Esterase NEG Urine RBC 1 Urine WBC LESS THAN 1 Microscopic Urinalysis Comment CULT NOT INDICATED Imaging Last Impressions Hand X-Ray 05/24/17 0000 Signed Impressions: Service Date/Time: Wednesday, May 24, 2017 21:23 - CONCLUSION: The osseous structures of the hand are grossly intact. Sukumar Butts MD Assessment and Plan Assessment and Plan 31-year-old male with a past medical history significant for schizophrenia, hepatitis B, MANISHA and hypertension who is domiciled in a custodial who was admitted to inpatient psychiatric unit under Baumann act as he was hearing voices telling him to kill himself. Patient has developed complaints of hematuria, dysuria, diarrhea and shortness of breath with activity. Hospitalist services have been consulted for medical management. Schizoaffective disorder -Management per psychiatric team Dysuria Hematuria -Obtain UA for further evaluation -Requested nurse monitor urinary output to confirm hematuria Diarrhea -No reports of diarrhea per nursing staff -Instructed patient to alert nursing staff if he has another loose stool, discussed with nursing staff -Will obtain stool studies and C. difficile Dyspnea with exertion Ongoing tobaccoism -Patient denies history of asthma but does have significant smoking history -lungs clear on exam. O2 sats 97% on room air -Obtain chest x-ray -DuoNeb's as needed -Discussed importance of smoking cessation Hypertension, not well controlled -Start on Norvasc 5 mg daily -Monitor BP and adjust treatment accordingly -Clonidine when necessary with parameters Hepatitis B -Per patient, he was treated -Recommend follow-up with gastroenterology as outpatient DVT prophylaxis -Patient is ambulatory Thank you very kindly for this consultation. We'll continue to follow along with you. Discussed Condition With Patient, nursing staff Trena Marquez Jun 05, 2017 16:54
[2017-06-05] MEDS ORDERED: RESP: ALBUTEROL 2.5 MG/IPRATROPIUM 0.5 MG NEB (PRN) NEB (17:00)
[2017-06-05] MEDS: hydrOXYzine HCL 50 MG TAB PO PRN (17:46)
[2017-06-05] MEDS: LORazepam 1 MG TAB PO PRN (19:40)
[2017-06-05] MEDS: OLANZapine 10 MG TAB PO SCH (20:00)
[2017-06-05] MEDS: MIRTAZAPINE 15 MG TAB PO SCH (20:00)
[2017-06-05] MEDS: LORazepam 2 MG/ML VIAL IM PRN (22:26)
[2017-06-06 06:06] VITALS: BP 135/85; PULSE 69; RESP 17; TEMP 97.4; O2SAT 98
[2017-06-06] MEDS: HALOPERIDOL 10 MG TAB PO SCH ×3 (09:44→17:41)
[2017-06-06] MEDS: DIVALPROEX SODIUM E.R. 500 MG TAB PO SCH ×2 (09:44→21:00)
[2017-06-06] MEDS: BENZTROPINE MESYLATE 1 MG TAB PO SCH ×3 (09:44→17:40)
[2017-06-06] MEDS: amLODIPine BESYLATE 5 MG TAB PO SCH (09:44)
[2017-06-06] MEDS: ALUMINUM/MAGNESIUM/SIMETH 30 ML CUP PO PRN (10:54)
--- NOTE | 2017-06-06 11:38 | HHI.PR ---
Subjective Remarks Follow-up on patient with complaints of shortness of breath, dysuria, diarrhea. Patient seen and examined. Patient very sleepy today. Does arouse to voice stimulation but quickly falls back asleep again snoring. He continues to have complaints of dysuria. He denies any complaints of shortness of breath or chest pain. Denies any nausea, vomiting or abdominal pain. Discussed with nursing staff, no episodes of hematuria or diarrhea noted. Objective Vitals Vital Signs Date Time Temp Pulse Resp B/P (MAP) Pulse Ox O2 Delivery O2 Flow Rate FiO2 06/06/17 06:06 97.4 69 17 135/85 (102) 98 Imaging Last Impressions Chest X-Ray 06/05/17 0000 Signed Impressions: Service Date/Time: Monday, June 05, 2017 15:49 - CONCLUSION: No acute disease. Marck Mendoza MD Hand X-Ray 05/24/17 0000 Signed Impressions: Service Date/Time: Wednesday, May 24, 2017 21:23 - CONCLUSION: The osseous structures of the hand are grossly intact. Sukumar Butts MD Objective Remarks GENERAL: This is a well-nourished, well-developed male patient, in no apparent distress. Sleeping, easily arousable to voice. SKIN: Cool and dry. HEAD: Atraumatic. Normocephalic. EYES: Pupils equal round and reactive, amblyopia. No scleral icterus. No injection or drainage. ENT: Nose without bleeding or purulent drainage. Airway patent. NECK: Trachea midline. CARDIOVASCULAR: Regular rate and rhythm without murmurs, gallops, or rubs. RESPIRATORY: Clear to auscultation. Breath sounds equal bilaterally. No wheezes , rales, or rhonchi. GASTROINTESTINAL: Abdomen soft, non-tender, nondistended. MUSCULOSKELETAL: Extremities without clubbing, cyanosis, or edema. NEUROLOGICAL: Awake and alert. Able to move all extremities spontaneously. Motor and sensory grossly within normal limits. No focal neurologic findings appreciated. Normal speech. Medications and IVs Current Medications Medications (Trade) Dose Ordered Sig/Bacilio Route Start Time Stop Time Status Last Admin (Cogentin) 0.5 mg TID PO 05/20/17 13:00 06/06/17 09:44 (Haldol) 10 mg TID PO 05/20/17 13:00 Future hold 06/06/17 09:44 (Remeron) 45 mg HS PO 05/20/17 21:00 Future hold 06/05/17 20:00 (ZyPREXA) 10 mg HS PO 05/20/17 21:00 Future hold 06/05/17 20:00 Patient Own Medication PT OWN MED: Diclofe... BID TOPICAL 05/20/17 21:00 Future Hold (Depakote Er) 1,000 mg HS PO 05/20/17 21:00 Future hold 06/05/17 20:00 (Ativan) 1 mg Q6H PRN PO 05/20/17 10:45 Future hold 06/04/17 21:07 (Ativan Inj) 1 mg Q6H PRN IM 05/20/17 10:45 Future hold 06/05/17 22:26 (Tylenol) 650 mg Q4H PRN PO 05/20/17 10:45 (Milk Of Magnesia Liq) 30 ml DAILY PRN PO 05/20/17 10:45 05/31/17 21:33 (Mag-Al Plus Susp Liq) 30 ml Q6H PRN PO 05/20/17 10:45 06/06/17 10:54 (Pill Splitter) 1 ea UNSCH PRN OTHER 05/20/17 11:30 (Atarax) 50 mg Q6H PRN PO 05/21/17 15:15 Future hold 06/05/17 17:46 (Tylenol) 1,000 mg Q8H PRN PO 05/21/17 15:15 05/30/17 14:55 (Depakote Er) 1,000 mg DAILY PO 06/01/17 09:00 06/06/17 09:44 (Proair Hfa Inh) 1 puff Q6H PRN INH 06/02/17 21:15 06/04/17 12:40 (Duoneb Neb) 1 ampule Q4HR NEB PRN NEB 06/05/17 17:00 (Norvasc) 5 mg DAILY PO 06/06/17 09:00 06/06/17 09:44 A/P Assessment and Plan 31-year-old male with a past medical history significant for mild MR, schizophrenia, hepatitis B, MANISHA and hypertension who is domiciled in a [facility] who was admitted to inpatient psychiatric unit under Baumann act as he was hearing voices telling him to kill himself. Patient has developed complaints of hematuria, dysuria, diarrhea and shortness of breath with activity. Hospitalist services have been consulted for medical management. Schizoaffective disorder -Management per psychiatric team Dysuria Hematuria -UA unremarkable -No episodes of hematuria per ERIKA Stephens -Check for chlamydia/gonorrhea. Diarrhea -No reports of diarrhea per nursing staff -Instructed patient to alert nursing staff if he has another loose stool, discussed with nursing staff -Will obtain stool studies and C. difficile if able to send a sample Dyspnea with exertion Ongoing tobaccoism -Patient denies history of asthma but does have significant smoking history -lungs clear on exam. O2 sats 98% on room air -Chest x-ray shows no acute cardiopulmonary process, images reviewed by me Henriquez's as needed -Discussed importance of smoking cessation Hypertension, not well controlled -Start on Norvasc 5 mg daily -Monitor BP and adjust treatment accordingly -Clonidine when necessary with parameters Hepatitis B -Per patient, he was treated -Recommend follow-up with gastroenterology as outpatient Hx of MANISHA -Patient with increased sleepiness today -Patient may use CPAP machine from home -Obtain ammonia level Vitamin D deficiency -Vitamin D level 15.2 04/02/17 -Give Ergicakcuferik 50,000 units once and begin po supplementation Vit D 2000u daily -Patient will need a follow-up with his PCP and have vitamin D level rechecked in 3 months DVT prophylaxis -Patient is ambulatory Trena Marquez Jun 06, 2017 11:38
[2017-06-06] MEDS ORDERED: ERGOCALCIFEROL (VIT D2) 50,000 UNIT CAP PO ONE (12:00)
--- NOTE | 2017-06-06 12:09 | HHI.PYPN ---
Subjective Remarks Patient was seen and case discussed with nursing. Patient is behaving better in this unit. No more head banging. Compliant with medications. Needs to have somatic urinary complaints which is being followed by medicine Mental Status Examination Appearance: Appropriate Consciousness: Alert Orientation: Person, Place Motor Activity: Normal gait Speech: Hesitant, Slow Language: Adequate Fund of Knowledge: Inadequate Attention and Concentration: Other (fair) Memory: Unremarkable Mood: Sad, Other (guarded and vigilant) Affect: Other (decreased range and intensity) Thought Process & Associations: Other (simple/concrete) Thought Content: Hallucinations Hallucination Type: Auditory (denies) Delusion Type: None Suicidal Ideation: Yes (fleeting) Suicidal Plan: No Suicidal Intention: No Homicidal Ideation: No Homicidal Plan: No Homicidal Intention: No Insight: Poor Judgment: Poor Results Labs Test 06/05/17 13:50 Urine Color LIGHT-YELLOW Urine Turbidity CLEAR Urine pH 7.5 Urine Specific [place] 1.007 Urine Protein TRACE mg/dL Urine Glucose (UA) NEG mg/dL Urine Ketones NEG mg/dL Urine Occult Blood NEG Urine Nitrite NEG Urine Bilirubin NEG Urine Urobilinogen LESS THAN 2.0 MG/DL Urine Leukocyte Esterase NEG Urine RBC 1 /hpf Urine WBC LESS THAN 1 /hpf Microscopic Urinalysis Comment CULT NOT INDICATED Vitals/IOs Vital Signs Date Time Temp Pulse Resp B/P (MAP) Pulse Ox O2 Delivery O2 Flow Rate FiO2 06/06/17 06:06 97.4 69 17 135/85 (102) 98 Assessment & Plan Problem List: (1) Schizoaffective disorder, depressive type ICD Codes: F25.1 - Schizoaffective disorder, depressive type Assessment & Plan Continue current treatment plan Justification for Cont. Inpt. Patient will decompensate in a less restrictive setting Request HC Surrog/Guard Advoc?: Yes Raphael Hazel DO Jun 06, 2017 12:09
[2017-06-06] MEDS: LORazepam 1 MG TAB PO PRN (12:30)
[2017-06-06 14:25] LABS: AUTOMATED NEUTROPHIL # 1.8 TH/MM3 (1.8-7.7); BASOPHIL % 1.1 % (0.0-2.0); EOSINOPHIL # 0.1 TH/MM3 (0-0.4); EOSINOPHIL % 3.3 % (0.0-4.0); HEMATOCRIT 44.1 % (39.0-51.0); HEMOGLOBIN 14.8 GM/DL (13.0-17.0); LYMPH % 33.2 % (9.0-44.0); LYMPHOCYTE # 1.2 TH/MM3 (1.0-4.8); MEAN CELL VOLUME 86.5 FL (80.0-100.0); MEAN CORPUSCULAR HEMOGLOBIN 29.1 PG (27.0-34.0); MEAN CORPUSCULAR HGB CONC 33.6 % (32.0-36.0); MEAN PLATELET VOLUME 8.2 FL (7.0-11.0); MONO % 12.8 % (0.0-8.0); MONOCYTE # 0.5 TH/MM3 (0-0.9); NEUT % 49.6 % (16.0-70.0); PLATELET COUNT 221 TH/MM3 (150-450); RED CELL DISTRIBUTION WIDTH 12.8 % (11.6-17.2); WHITE BLOOD COUNT 3.7 TH/MM3 (4.0-11.0)
[2017-06-06 14:57] LABS: BICARBONATE 27.8 MEQ/L (21.0-32.0); CALCIUM 8.7 MG/DL (8.5-10.1); CREATININE 0.84 MG/DL (0.60-1.30); MAGNESIUM 2.1 MG/DL (1.5-2.5); PHOSPHORUS 2.2 MG/DL (2.5-4.9)
[2017-06-06 17:06] VITALS: BP 172/99; PULSE 79; RESP 18; TEMP 97.6; O2SAT 98
[2017-06-06] MEDS: LORazepam 2 MG/ML VIAL IM PRN (20:30)
[2017-06-06] MEDS: OLANZapine 10 MG TAB PO SCH (21:00)
[2017-06-06] MEDS: MIRTAZAPINE 15 MG TAB PO SCH (21:00)
[2017-06-07 06:13] VITALS: BP 150/90; PULSE 85; RESP 17; TEMP 97.5; O2SAT 100
[2017-06-07] MEDS: amLODIPine BESYLATE 5 MG TAB PO SCH (09:10)
[2017-06-07] MEDS: HALOPERIDOL 10 MG TAB PO SCH ×3 (09:10→17:41)
[2017-06-07] MEDS: BENZTROPINE MESYLATE 1 MG TAB PO SCH ×3 (09:10→17:41)
[2017-06-07] MEDS: DIVALPROEX SODIUM E.R. 500 MG TAB PO SCH ×2 (09:10→20:14)
[2017-06-07] MEDS: CHOLECALCIFEROL (VIT D3) 1000 UNIT TAB PO SCH (09:10)
[2017-06-07] MEDS ORDERED: LACTULOSE SYRUP 20 GM/30 ML CUP PO ONE (10:45)
[2017-06-07] MEDS: LORazepam 1 MG TAB PO PRN (12:01)
--- NOTE | 2017-06-07 12:39 | HHI.PYPN ---
Subjective Remarks Patient seen in [place] with nurse Lien, chart review, reviewed patient's lab tests related to his elevated ammonia level, also reviewed the hospitalists progress notes. Agree with above treatment. Patient continues somewhat childlike and contract his behaviors. Not giving any significant reason for his outbursts. At this time we'll continue medication no change continue to work with finding appropriate placement for this young man Review of Systems Except as stated in HPI: all other systems reviewed are Neg Mental Status Examination Appearance: Appropriate Consciousness: Alert Orientation: Person, Place Motor Activity: Normal gait Speech: Hesitant, Slow Language: Adequate Fund of Knowledge: Inadequate Attention and Concentration: Other (fair) Memory: Unremarkable Mood: Sad, Other (guarded and vigilant) Affect: Other (decreased range and intensity) Thought Process & Associations: Other (simple/concrete) Thought Content: Hallucinations Hallucination Type: Auditory (denies) Delusion Type: None Suicidal Ideation: Yes (fleeting) Suicidal Plan: No Suicidal Intention: No Homicidal Ideation: No Homicidal Plan: No Homicidal Intention: No Insight: Poor Judgment: Poor Results Labs Test 06/06/17 14:02 06/07/17 10:30 White Blood Count 3.7 TH/MM3 Red Blood Count 5.10 MIL/MM3 Hemoglobin 14.8 GM/DL Hematocrit 44.1 % Mean Corpuscular Volume 86.5 FL Mean Corpuscular Hemoglobin 29.1 PG Mean Corpuscular Hemoglobin Concent 33.6 % Red Cell Distribution Width 12.8 % Platelet Count 221 TH/MM3 Mean Platelet Volume 8.2 FL Neutrophils (%) (Auto) 49.6 % Lymphocytes (%) (Auto) 33.2 % Monocytes (%) (Auto) 12.8 % Eosinophils (%) (Auto) 3.3 % Basophils (%) (Auto) 1.1 % Neutrophils # (Auto) 1.8 TH/MM3 Lymphocytes # (Auto) 1.2 TH/MM3 Monocytes # (Auto) 0.5 TH/MM3 Eosinophils # (Auto) 0.1 TH/MM3 Basophils # (Auto) 0.0 TH/MM3 CBC Comment DIFF FINAL Differential Comment Blood Urea Nitrogen 9 MG/DL Creatinine 0.84 MG/DL Random Glucose 92 MG/DL Calcium Level 8.7 MG/DL Phosphorus Level 2.2 MG/DL Magnesium Level 2.1 MG/DL Sodium Level 143 MEQ/L Potassium Level 4.1 MEQ/L Chloride Level 108 MEQ/L Carbon Dioxide Level 27.8 MEQ/L Anion Gap 7 MEQ/L Estimat Glomerular Filtration Rate 105 ML/MIN Ammonia 208 MCMOL/L Vitals/IOs Vital Signs Date Time Temp Pulse Resp B/P (MAP) Pulse Ox O2 Delivery O2 Flow Rate FiO2 06/07/17 06:13 97.5 85 17 150/90 (110) 100 Assessment & Plan Problem List: (1) Schizoaffective disorder, depressive type ICD Codes: F25.1 - Schizoaffective disorder, depressive type Assessment & Plan Estimated LOS: days patient continues somewhat psychotic and vigilant, overall no significant behavioral problems at times he exhibits self mutilating behaviors. For now continue treatment continue to work on placement issues Justification for Cont. Inpt. At this time patient will decompensate with placed a lower level of care Discharge Planning Continue to work with finding appropriate placement for this young man Request HC Surrog/Guard Advoc?: Yes Anthony Boswell MD Jun 07, 2017 12:39
[2017-06-07] MEDS: LACTULOSE SYRUP 20 GM/30 ML CUP PO SCH ×3 (13:04→20:14)
[2017-06-07 15:09] VITALS: BP 140/85; PULSE 96; RESP 18; TEMP 98.5; O2SAT 98
--- NOTE | 2017-06-07 16:17 | HHI.PR ---
Subjective Remarks Follow-up on patient with complaints of shortness of breath, dysuria, diarrhea. Patient seen and examined. Patient continues to be somnolent. Ammonia level elevated at 208. Discussed with nursing staff. Started on Lactulose. Objective Vitals Vital Signs Date Time Temp Pulse Resp B/P (MAP) Pulse Ox O2 Delivery O2 Flow Rate FiO2 06/07/17 15:09 98.5 96 18 140/85 (103) 98 06/07/17 06:13 97.5 85 17 150/90 (110) 100 06/06/17 17:06 97.6 79 18 172/99 (123) 98 Result Diagram: 06/06/17 1402 06/06/17 1402 Imaging Last Impressions Chest X-Ray 06/05/17 0000 Signed Impressions: Service Date/Time: Monday, June 05, 2017 15:49 - CONCLUSION: No acute disease. Marck Mendoza MD Hand X-Ray 05/24/17 0000 Signed Impressions: Service Date/Time: Wednesday, May 24, 2017 21:23 - CONCLUSION: The osseous structures of the hand are grossly intact. Sukumar Butts MD Objective Remarks GENERAL: This is a well-nourished, well-developed male patient, in no apparent distress. Somnolent, does awaken to voice stimulation. SKIN: Cool and dry. HEAD: Atraumatic. Normocephalic. EYES: Pupils equal round and reactive, amblyopia. No scleral icterus. No injection or drainage. ENT: Nose without bleeding or purulent drainage. Airway patent. NECK: Trachea midline. CARDIOVASCULAR: Regular rate and rhythm without murmurs, gallops, or rubs. RESPIRATORY: Clear to auscultation. Breath sounds equal bilaterally. No wheezes , rales, or rhonchi. GASTROINTESTINAL: Abdomen soft, non-tender, nondistended. MUSCULOSKELETAL: Extremities without clubbing, cyanosis, or edema. NEUROLOGICAL: Somnolent. Able to move all extremities spontaneously. Motor and sensory grossly within normal limits. No focal neurologic findings appreciated. Normal speech. Medications and IVs Current Medications Medications (Trade) Dose Ordered Sig/Bacilio Route Start Time Stop Time Status Last Admin (Cogentin) 0.5 mg TID PO 05/20/17 13:00 06/07/17 13:00 (Haldol) 10 mg TID PO 05/20/17 13:00 Future hold 06/07/17 13:04 (Remeron) 45 mg HS PO 05/20/17 21:00 Future hold 06/06/17 21:00 (ZyPREXA) 10 mg HS PO 05/20/17 21:00 Future hold 06/06/17 21:00 Patient Own Medication PT OWN MED: Diclofe... BID TOPICAL 05/20/17 21:00 Future Hold (Depakote Er) 1,000 mg HS PO 05/20/17 21:00 Future hold 06/06/17 21:00 (Ativan) 1 mg Q6H PRN PO 05/20/17 10:45 Future hold 06/07/17 12:01 (Ativan Inj) 1 mg Q6H PRN IM 05/20/17 10:45 Future hold 06/06/17 20:30 (Tylenol) 650 mg Q4H PRN PO 05/20/17 10:45 (Milk Of Magnesia Liq) 30 ml DAILY PRN PO 05/20/17 10:45 05/31/17 21:33 (Mag-Al Plus Susp Liq) 30 ml Q6H PRN PO 05/20/17 10:45 06/06/17 10:54 (Pill Splitter) 1 ea UNSCH PRN OTHER 05/20/17 11:30 (Atarax) 50 mg Q6H PRN PO 05/21/17 15:15 Future hold 06/05/17 17:46 (Tylenol) 1,000 mg Q8H PRN PO 05/21/17 15:15 05/30/17 14:55 (Depakote Er) 1,000 mg DAILY PO 06/01/17 09:00 06/07/17 09:10 (Proair Hfa Inh) 1 puff Q6H PRN INH 06/02/17 21:15 06/04/17 12:40 (Duoneb Neb) 1 ampule Q4HR NEB PRN NEB 06/05/17 17:00 (Norvasc) 5 mg DAILY PO 06/06/17 09:00 06/07/17 09:10 (Vitamin D3) 2,000 units DAILY PO 06/07/17 09:00 06/07/17 09:10 (Lactulose Liq) 30 ml QID PO 06/07/17 13:00 06/07/17 13:04 A/P Assessment and Plan 31-year-old male with a past medical history significant for mild MR, schizophrenia, hepatitis B, MANISHA and hypertension who is domiciled in a [facility] who was admitted to inpatient psychiatric unit under Baumann act as he was hearing voices telling him to kill himself. Patient has developed complaints of hematuria, dysuria, diarrhea and shortness of breath with activity. Hospitalist services have been consulted for medical management. Schizoaffective disorder -Management per psychiatric team Dysuria Hematuria -UA unremarkable -No episodes of hematuria per ERIKA Stephens -chlamydia/gonorrhea not detected Diarrhea -No reports of diarrhea per nursing staff -Instructed patient to alert nursing staff if he has another loose stool, discussed with nursing staff -Will obtain stool studies and C. difficile if able to send a sample Dyspnea with exertion Ongoing tobaccoism -Patient denies history of asthma but does have significant smoking history -lungs clear on exam. O2 sats 98% on room air -Chest x-ray shows no acute cardiopulmonary process, images reviewed by me Henriquez's as needed -Discussed importance of smoking cessation Hyperammonemia -ammonia level 208 -patient is somnolent -Lactulose QID -monitor for improvement Hypertension, not well controlled -Started on Norvasc 5 mg daily, improved -Monitor BP and adjust treatment accordingly -Clonidine when necessary with parameters Hepatitis B -Per patient, he was treated -Recommend follow-up with gastroenterology as outpatient Hx of MANISHA -Patient may use CPAP machine from home Vitamin D deficiency -Vitamin D level 15.2 04/02/17 -Given Ergocalciferol 50,000 units once -Continue on po supplementation Vit D 2000u daily -Patient will need a follow-up with his PCP and have vitamin D level rechecked in 3 months DVT prophylaxis -Patient is ambulatory Trena Marquez Jun 07, 2017 16:17
[2017-06-07] MEDS: MIRTAZAPINE 15 MG TAB PO SCH (20:14)
[2017-06-07] MEDS: OLANZapine 10 MG TAB PO SCH (20:14)
[2017-06-07] MEDS: ALBUTEROL SULFATE 90 MCG/ACT HFA 8 GM INHALER INH PRN (21:18)
[2017-06-08 05:59] VITALS: BP 130/68; PULSE 66; RESP 18; TEMP 97.4; O2SAT 98
[2017-06-08] MEDS: CHOLECALCIFEROL (VIT D3) 1000 UNIT TAB PO SCH (09:00)
[2017-06-08] MEDS: amLODIPine BESYLATE 5 MG TAB PO SCH (09:55)
[2017-06-08] MEDS: DIVALPROEX SODIUM E.R. 500 MG TAB PO SCH ×2 (09:55→20:14)
[2017-06-08] MEDS: LACTULOSE SYRUP 20 GM/30 ML CUP PO SCH ×4 (09:55→20:14)
[2017-06-08] MEDS: BENZTROPINE MESYLATE 1 MG TAB PO SCH ×3 (09:55→17:44)
[2017-06-08] MEDS: HALOPERIDOL 10 MG TAB PO SCH ×3 (09:55→17:44)
--- NOTE | 2017-06-08 14:18 | HHI.PYPN ---
Subjective Remarks Upon review of the EMR for this hospitalization it appears I change patient's capacity to no capacity for hospitalization or for medication. On 05/24/16 I asked for a health care surrogate and a guardian advocate will treat be in accordance with the patient having no capacity for guiding his admission treatment or medications. Patient seen today on 2700 is somewhat excited about having had a phone interview with a possible placement in the [place] area. However this is somewhat tenuous. We still have our recommendation for placement in the [facility] if and when it is approved in a bed is made available. He is been in good behavior today, continue somewhat childish and need E. For now continue treatment Review of Systems Except as stated in HPI: all other systems reviewed are Neg Mental Status Examination Appearance: Appropriate Consciousness: Alert Orientation: Person, Place Motor Activity: Normal gait Speech: Hesitant, Slow Language: Adequate Fund of Knowledge: Inadequate Attention and Concentration: Other (fair) Memory: Unremarkable Mood: Sad, Other (guarded and vigilant) Affect: Other (decreased range and intensity) Thought Process & Associations: Other (simple/concrete) Thought Content: Hallucinations Hallucination Type: Auditory (denies) Delusion Type: None Suicidal Ideation: Yes (fleeting) Suicidal Plan: No Suicidal Intention: No Homicidal Ideation: No Homicidal Plan: No Homicidal Intention: No Insight: Poor Judgment: Poor Results Vitals/IOs Vital Signs Date Time Temp Pulse Resp B/P (MAP) Pulse Ox O2 Delivery O2 Flow Rate FiO2 06/08/17 05:59 97.4 66 18 130/68 (88) 98 Assessment & Plan Problem List: (1) Schizoaffective disorder, depressive type ICD Codes: F25.1 - Schizoaffective disorder, depressive type Assessment & Plan Estimated LOS: days patient continues somewhat labile intrusive in ED, he is somewhat excited about the telephone interview he just had. As mentioned above an approximately 05/24/17 I asked for a health care surrogate and guardian advocate. The time I feel patient no longer had capacity to agreed to either hospitalization or medication. At that time I ask for healthcare surrogate and guardian advocate Justification for Cont. Inpt. At this time patient will decompensate a placed on the lower level of care Discharge Planning Continues 20 word from [facility] referral murmur there is a possibility that placement may be found prior to that Request HC Surrog/Guard Advoc?: Yes (request for healthcare surrogate and guardian advocate was initiated on 05/24) Anthony Boswell MD Jun 08, 2017 14:18
--- NOTE | 2017-06-08 14:20 | HHI.PR ---
Subjective Remarks Follow-up on patient with complaints of shortness of breath, dysuria, diarrhea. Patient continues to complain of diarrhea and reports that he is going about 4 times a day, denies any abdominal pain or discomfort, denies nausea or vomiting. He is requesting double portions with meals. He denies any fevers, chills, nausea, vomiting, headaches, cough or shortness of breath. Objective Vitals Vital Signs Date Time Temp Pulse Resp B/P (MAP) Pulse Ox O2 Delivery O2 Flow Rate FiO2 06/08/17 05:59 97.4 66 18 130/68 (88) 98 06/07/17 15:09 98.5 96 18 140/85 (103) 98 Result Diagram: 06/06/17 1402 06/06/17 1402 Imaging Last Impressions Chest X-Ray 06/05/17 0000 Signed Impressions: Service Date/Time: Monday, June 05, 2017 15:49 - CONCLUSION: No acute disease. Marck Mendoza MD Hand X-Ray 05/24/17 0000 Signed Impressions: Service Date/Time: Wednesday, May 24, 2017 21:23 - CONCLUSION: The osseous structures of the hand are grossly intact. Sukumar Butts MD Objective Remarks GENERAL: This is a well-nourished, well-developed male patient, in no apparent distress. Awake and alert, ambulating in the hallway. SKIN: Cool and dry. HEAD: Atraumatic. Normocephalic. EYES: Pupils equal round and reactive, amblyopia. No scleral icterus. No injection or drainage. ENT: Nose without bleeding or purulent drainage. Airway patent. NECK: Trachea midline. CARDIOVASCULAR: Regular rate and rhythm without murmurs, gallops, or rubs. RESPIRATORY: Clear to auscultation. Breath sounds equal bilaterally. No wheezes , rales, or rhonchi. GASTROINTESTINAL: Abdomen soft, non-tender, nondistended. Hyperactive bowel sounds. MUSCULOSKELETAL: Extremities without clubbing, cyanosis, or edema. NEUROLOGICAL: Awake, alert oriented to self. Able to move all extremities spontaneously. Motor and sensory grossly within normal limits. No focal neurologic findings appreciated. Normal speech. Childlike demeanor. A/P Assessment and Plan 31-year-old male with a past medical history significant for mild MR, schizophrenia, hepatitis B, MANISHA and hypertension who is domiciled in a correction who was admitted to inpatient psychiatric unit under Baumann act as he was hearing voices telling him to kill himself. Patient has developed complaints of hematuria, dysuria, diarrhea and shortness of breath with activity. Hospitalist services have been consulted for medical management. Schizoaffective disorder -Management per psychiatric team Dysuria Hematuria -UA unremarkable -No hematuria or dysuria reported by patient -chlamydia/gonorrhea not detected Diarrhea -Ongoing diarrhea -discussed with nurse and patient, the need to obtain stool for C.diff testing Dyspnea with exertion Ongoing tobaccoism -Patient denies history of asthma but does have significant smoking history -lungs clear. O2 sats 98% on room air -Chest x-ray shows no acute cardiopulmonary process -DuoNeb's as needed -Reiterated importance of smoking cessation Hyperammonemia -ammonia level 208 -patient is awake and alert today -Lactulose QID, diarrhea, check Ammonia levels tomorrow -monitor for improvement, if improving consider decreasing dose to BID or QD Hypertension, controlled -continue Norvasc 5 mg daily -Monitor BP and adjust treatment accordingly -Clonidine when necessary with parameters Hepatitis B -Per patient, he was treated -Recommend follow-up with gastroenterology as outpatient Hx of MANISHA -Patient may use CPAP machine from home Vitamin D deficiency -Vitamin D level 15.2 04/02/17 -Given Ergocalciferol 50,000 units once -Continue on po supplementation Vit D 2000u daily -Patient will need a follow-up with his PCP and have vitamin D level rechecked in 3 months DVT prophylaxis -Patient is ambulatory Discussed with nurse. Monico Cosme Jun 08, 2017 14:20
[2017-06-08 18:12] VITALS: BP 126/68; PULSE 89; RESP 17; TEMP 98.3; O2SAT 96
[2017-06-08] MEDS: OLANZapine 10 MG TAB PO SCH (20:14)
[2017-06-08] MEDS: MIRTAZAPINE 15 MG TAB PO SCH (20:14)
[2017-06-09 06:06] VITALS: BP 137/88; PULSE 80; RESP 18; TEMP 97.2; O2SAT 98
[2017-06-09] MEDS: amLODIPine BESYLATE 5 MG TAB PO SCH (08:26)
[2017-06-09] MEDS: HALOPERIDOL 10 MG TAB PO SCH ×3 (08:26→18:04)
[2017-06-09] MEDS: DIVALPROEX SODIUM E.R. 500 MG TAB PO SCH ×2 (08:26→21:21)
[2017-06-09] MEDS: BENZTROPINE MESYLATE 1 MG TAB PO SCH ×3 (08:26→18:04)
[2017-06-09] MEDS: CHOLECALCIFEROL (VIT D3) 1000 UNIT TAB PO SCH (08:26)
[2017-06-09] MEDS: LACTULOSE SYRUP 20 GM/30 ML CUP PO SCH ×4 (08:26→21:22)
--- NOTE | 2017-06-09 13:11 | HHI.PR ---
Subjective Remarks Follow-up visit for elevated ammonia, HTN, and diarrhea. Patient seen and examined today in the room. He continues to complain of loose stools, denies any abdominal pain or discomfort. He denies any nausea, vomiting, fevers, chills, headaches or dizziness. He is requesting something for sore throat, denies any cough or shortness of breath. Objective Vitals Vital Signs Date Time Temp Pulse Resp B/P (MAP) Pulse Ox O2 Delivery O2 Flow Rate FiO2 06/09/17 06:06 97.2 80 18 137/88 (104) 98 06/08/17 18:12 98.3 89 17 126/68 (87) 96 I/O 06/08/17 06/08/17 06/08/17 06/09/17 06/09/17 06/09/17 07:00 15:00 23:00 07:00 15:00 23:00 Intake Total 480 ml Balance 480 ml Intake Oral 480 ml Result Diagram: 06/06/17 1402 06/06/17 1402 Imaging Last Impressions Chest X-Ray 06/05/17 0000 Signed Impressions: Service Date/Time: Monday, June 05, 2017 15:49 - CONCLUSION: No acute disease. Marck Mendoza MD Hand X-Ray 05/24/17 0000 Signed Impressions: Service Date/Time: Wednesday, May 24, 2017 21:23 - CONCLUSION: The osseous structures of the hand are grossly intact. Sukumar Butts MD Objective Remarks GENERAL: This is a well-nourished, well-developed male patient, in no apparent distress. Awake and alert, ambulating in the hallway. SKIN: Cool and dry. HEAD: Atraumatic. Normocephalic. EYES: Pupils equal round and reactive, amblyopia. No scleral icterus. No injection or drainage. ENT: Nose without bleeding or purulent drainage. Airway patent. NECK: Trachea midline. CARDIOVASCULAR: Regular rate and rhythm without murmurs, gallops, or rubs. RESPIRATORY: Clear to auscultation. Breath sounds equal bilaterally. No wheezes , rales, or rhonchi. GASTROINTESTINAL: Abdomen soft, non-tender, nondistended. Hyperactive bowel sounds. MUSCULOSKELETAL: Extremities without clubbing, cyanosis, or edema. NEUROLOGICAL: Awake, alert oriented to self. Able to move all extremities spontaneously. Motor and sensory grossly within normal limits. No focal neurologic findings appreciated. Normal speech. Childlike demeanor. A/P Assessment and Plan 31-year-old male with a past medical history significant for mild MR, schizophrenia, hepatitis B, MANISHA and hypertension who is domiciled in a halfway who was admitted to inpatient psychiatric unit under Baumann act as he was hearing voices telling him to kill himself. Patient has developed complaints of hematuria, dysuria, diarrhea and shortness of breath with activity. Hospitalist services have been consulted for medical management. Schizoaffective disorder -Management per psychiatric team Dysuria Hematuria -UA unremarkable -No hematuria or dysuria reported by patient -chlamydia/gonorrhea not detected Diarrhea -Ongoing diarrhea likely related to lactulose, frequency decreased. -C. difficile negative Dyspnea with exertion Ongoing tobaccoism Sore throat -Patient denies history of asthma but does have significant smoking history -lungs clear. O2 sats 98% on room air -Chest x-ray shows no acute cardiopulmonary process -DuoNeb's as needed -Reiterated importance of smoking cessation -Menthol throat lozenges as needed, afebrile with no other complaints. Hyperammonemia -ammonia level 208-->79 -patient is awake and alert today -Lactulose QID, diarrhea, decrease lactulose dose to daily Hypertension, controlled -continue Norvasc 5 mg daily -Monitor BP and adjust treatment accordingly -Clonidine when necessary with parameters Hepatitis B -Per patient, he was treated -Recommend follow-up with gastroenterology as outpatient Hx of MANISHA -Patient may use CPAP machine from home Vitamin D deficiency -Vitamin D level 15.2 04/02/17 -Given Ergocalciferol 50,000 units once -Continue on po supplementation Vit D 2000u daily -Patient will need a follow-up with his PCP and have vitamin D level rechecked in 3 months DVT prophylaxis -Patient is ambulatory Discussed with nurse. Monico Cosme Jun 09, 2017 13:11
--- NOTE | 2017-06-09 15:03 | HHI.PYPN ---
Subjective Remarks Patient seen in [place] on 2699, with floor staff, chart review, patient compliant medication, patient discussed with nurse. Patient and change in behavior is childlike and somewhat impulsive and reactive. Is also an innocence about him. It appears she has been accepted at the [facility]cf in the [facility] late this week or early next week. For now continue treatment. Review of Systems Except as stated in HPI: all other systems reviewed are Neg Mental Status Examination Appearance: Appropriate Consciousness: Alert Orientation: Person, Place Motor Activity: Normal gait Speech: Hesitant, Slow Language: Adequate Fund of Knowledge: Inadequate Attention and Concentration: Other (fair) Memory: Unremarkable Mood: Sad, Other (guarded and vigilant) Affect: Other (decreased range and intensity) Thought Process & Associations: Other (simple/concrete) Thought Content: Hallucinations Hallucination Type: Auditory (denies) Delusion Type: None Suicidal Ideation: Yes (fleeting) Suicidal Plan: No Suicidal Intention: No Homicidal Ideation: No Homicidal Plan: No Homicidal Intention: No Insight: Poor Judgment: Poor Results Labs Test 06/08/17 15:45 06/09/17 10:40 Stool C. difficile Toxin (PCR) NEGATIVE Stl C. difficile Toxin Epiderm 027 PRESUMPTIVE NEGATIVE Ammonia 79 MCMOL/L Date/Time Source Procedure Growth Status 06/08/17 15:45 Stool Stool Pending Received Vitals/IOs Vital Signs Date Time Temp Pulse Resp B/P (MAP) Pulse Ox O2 Delivery O2 Flow Rate FiO2 06/09/17 06:06 97.2 80 18 137/88 (104) 98 Assessment & Plan Problem List: (1) Schizoaffective disorder, depressive type ICD Codes: F25.1 - Schizoaffective disorder, depressive type Assessment & Plan Estimated LOS: days patient continues somewhat impulsive and labile, though redirectable. It appears patient is found placement the [facility]cf in the [facility] we will no specific dates either end of this week or first part next week Justification for Cont. Inpt. At this time patient would decompensated placed in a lower level of care Discharge Planning Placement perhaps in a chcf in the Area Request HC Surrog/Guard Advoc?: Yes (request for healthcare surrogate and guardian advocate was initiated on 05/24) Anthony Boswell MD Jun 09, 2017 15:03
[2017-06-09 16:13] VITALS: BP 169/85; PULSE 81; RESP 18; TEMP 97.6; O2SAT 99
[2017-06-09] MEDS ORDERED: MENTHOL LOZENGE BUCCAL PRN (16:15)
[2017-06-09] MEDS: OLANZapine 10 MG TAB PO SCH (21:21)
[2017-06-09] MEDS: MIRTAZAPINE 15 MG TAB PO SCH (21:22)
[2017-06-09] MEDS: LORazepam 2 MG/ML VIAL IM PRN (22:09)
[2017-06-10 06:43] VITALS: BP 119/58; PULSE 90; RESP 16; TEMP 97.2; O2SAT 90
[2017-06-10] MEDS: amLODIPine BESYLATE 5 MG TAB PO SCH (09:35)
[2017-06-10] MEDS: DIVALPROEX SODIUM E.R. 500 MG TAB PO SCH ×2 (09:35→20:49)
[2017-06-10] MEDS: HALOPERIDOL 10 MG TAB PO SCH ×3 (09:35→18:28)
[2017-06-10] MEDS: LACTULOSE SYRUP 20 GM/30 ML CUP PO SCH (09:35)
[2017-06-10] MEDS: BENZTROPINE MESYLATE 1 MG TAB PO SCH ×3 (09:35→18:28)
[2017-06-10] MEDS: CHOLECALCIFEROL (VIT D3) 1000 UNIT TAB PO SCH (09:36)
--- NOTE | 2017-06-10 13:57 | HHI.PR ---
Subjective Remarks Follow-up for hypertension, elevated ammonia and diarrhea. Patient seen and examined in his room asleep, arouses with light touch. He denies any fevers, chills, nausea, vomiting, or diarrhea. He denies any cough, throat pain or shortness of breath. Nurse reports patient has been sleepy this morning, no other acute concerns. Objective Vitals Vital Signs Date Time Temp Pulse Resp B/P (MAP) Pulse Ox O2 Delivery O2 Flow Rate FiO2 06/10/17 06:43 97.2 90 16 119/58 (78) 90 06/09/17 16:13 97.6 81 18 169/85 (113) 99 Result Diagram: 06/06/17 1402 06/06/17 1402 Imaging Last Impressions Chest X-Ray 06/05/17 0000 Signed Impressions: Service Date/Time: Monday, June 05, 2017 15:49 - CONCLUSION: No acute disease. Marck Mendoza MD Hand X-Ray 05/24/17 0000 Signed Impressions: Service Date/Time: Wednesday, May 24, 2017 21:23 - CONCLUSION: The osseous structures of the hand are grossly intact. Sukumar Butts MD Objective Remarks GENERAL: This is a well-nourished, well-developed male patient, in no apparent distress. SKIN: Cool and dry. HEAD: Atraumatic. Normocephalic. EYES: Pupils equal round and reactive, amblyopia. No scleral icterus. No injection or drainage. ENT: Nose without bleeding or purulent drainage. Airway patent. NECK: Trachea midline. CARDIOVASCULAR: Regular rate and rhythm without murmurs, gallops, or rubs. RESPIRATORY: Clear to auscultation. Breath sounds equal bilaterally. No wheezes , rales, or rhonchi. GASTROINTESTINAL: Abdomen soft, non-tender, nondistended. Hyperactive bowel sounds. MUSCULOSKELETAL: Extremities without clubbing, cyanosis, or edema. NEUROLOGICAL: Awake, alert oriented to self. Able to move all extremities spontaneously. Motor and sensory grossly within normal limits. No focal neurologic findings appreciated. Normal speech. Childlike demeanor. A/P Assessment and Plan 31-year-old male with a past medical history significant for mild MR, schizophrenia, hepatitis B, MANISHA and hypertension who is domiciled in a chcf who was admitted to inpatient psychiatric unit under Baumann act as he was hearing voices telling him to kill himself. Patient has developed complaints of hematuria, dysuria, diarrhea and shortness of breath with activity. Hospitalist services have been consulted for medical management. Schizoaffective disorder -Management per psychiatric team Dysuria Hematuria -UA unremarkable -No hematuria or dysuria reported by patient -chlamydia/gonorrhea not detected Diarrhea -Ongoing diarrhea likely related to lactulose, frequency decreased. -C. difficile negative Dyspnea with exertion Ongoing tobaccoism Sore throat -Patient denies history of asthma but does have significant smoking history -lungs clear. O2 sats 98% on room air -Chest x-ray shows no acute cardiopulmonary process -DuoNeb's as needed -Reiterated importance of smoking cessation -Menthol throat lozenges as needed, afebrile with no other complaints. Hyperammonemia -ammonia level 208-->79 -patient has been sleeping throughout the morning. Recheck ammonia level tomorrow -Lactulose daily due to ongoing diarrhea Hypertension, controlled -continue Norvasc 5 mg daily -Monitor BP and adjust treatment accordingly -Clonidine when necessary with parameters Hepatitis B -Per patient, he was treated -Recommend follow-up with gastroenterology as outpatient Hx of MANISHA -Patient may use CPAP machine from home Vitamin D deficiency -Vitamin D level 15.2 04/02/17 -Given Ergocalciferol 50,000 units once -Continue on po supplementation Vit D 2000u daily -Patient will need a follow-up with his PCP and have vitamin D level rechecked in 3 months DVT prophylaxis -Patient is ambulatory Discussed with nurse. Monico Cosme Jun 10, 2017 13:57
--- NOTE | 2017-06-10 17:12 | HHI.PYPN ---
Subjective Remarks Patient seen in day room with nurse Ruthy. Chart reviewed. Patient compliant medications. Patient discussed with nurse. It appears placement is been verified for Wednesday. Patient aware of this and is coping with that. Now continue treatment Review of Systems Except as stated in HPI: all other systems reviewed are Neg Mental Status Examination Appearance: Appropriate Consciousness: Alert Orientation: Person, Place Motor Activity: Normal gait Speech: Hesitant, Slow Language: Adequate Fund of Knowledge: Inadequate Attention and Concentration: Other (fair) Memory: Unremarkable Mood: Sad, Other (guarded and vigilant) Affect: Other (decreased range and intensity) Thought Process & Associations: Other (simple/concrete) Thought Content: Hallucinations Hallucination Type: Auditory (denies) Delusion Type: None Suicidal Ideation: Yes (fleeting) Suicidal Plan: No Suicidal Intention: No Homicidal Ideation: No Homicidal Plan: No Homicidal Intention: No Insight: Poor Judgment: Poor Results Labs Date/Time Source Procedure Growth Status 06/08/17 15:45 Stool Stool - Final Complete Vitals/IOs Vital Signs Date Time Temp Pulse Resp B/P (MAP) Pulse Ox O2 Delivery O2 Flow Rate FiO2 06/10/17 06:43 97.2 90 16 119/58 (78) 90 Assessment & Plan Problem List: (1) Schizoaffective disorder, depressive type ICD Codes: F25.1 - Schizoaffective disorder, depressive type Assessment & Plan Estimated LOS: days patient continues somewhat irritable quite childlike though he is coping and processing fairly well the delays in his placement. It appears place will occur on Wednesday 06/14 Justification for Cont. Inpt. At this time patient decompensate if place the lower level of care Discharge Planning Possible discharge Wednesday 06/14 Request HC Surrog/Guard Advoc?: Yes (request for healthcare surrogate and guardian advocate was initiated on 05/24) Anthony Boswell MD Jun 10, 2017 17:12
[2017-06-10 18:10] VITALS: BP 151/81; PULSE 100; RESP 17; TEMP 97.8; O2SAT 97
[2017-06-10] MEDS: MIRTAZAPINE 15 MG TAB PO SCH (20:49)
[2017-06-10] MEDS: OLANZapine 10 MG TAB PO SCH (20:49)
[2017-06-11] MEDS: MAGNESIUM HYDROXIDE SUSP 30 ML CUP PO PRN (05:27)
[2017-06-11] MEDS: ACETAMINOPHEN 325 MG TAB PO PRN (05:28)
[2017-06-11 05:51] VITALS: BP 138/83; PULSE 72; RESP 18; TEMP 96.9; O2SAT 98
[2017-06-11] MEDS: HALOPERIDOL 10 MG TAB PO SCH ×3 (09:11→18:41)
[2017-06-11] MEDS: BENZTROPINE MESYLATE 1 MG TAB PO SCH ×3 (09:11→18:41)
[2017-06-11] MEDS: DIVALPROEX SODIUM E.R. 500 MG TAB PO SCH ×2 (09:12→21:05)
[2017-06-11] MEDS: CHOLECALCIFEROL (VIT D3) 1000 UNIT TAB PO SCH (09:12)
[2017-06-11] MEDS: LACTULOSE SYRUP 20 GM/30 ML CUP PO SCH ×2 (09:12→18:42)
[2017-06-11] MEDS: amLODIPine BESYLATE 5 MG TAB PO SCH (09:12)
--- NOTE | 2017-06-11 15:01 | HHI.PR ---
Subjective Remarks Follow-up visit for hypertension and elevated ammonia. Patient seen and examined ambulating in the hallways. He denies any fevers, chills, nausea, vomiting, headache, shortness of breath or cough. Discussed with nurse who reports patient had constipation earlier. [facility]. Objective Vitals Vital Signs Date Time Temp Pulse Resp B/P (MAP) Pulse Ox O2 Delivery O2 Flow Rate FiO2 06/11/17 05:51 96.9 72 18 138/83 (101) 98 06/10/17 18:10 97.8 100 17 151/81 (104) 97 Imaging Last Impressions Chest X-Ray 06/05/17 0000 Signed Impressions: Service Date/Time: Monday, June 05, 2017 15:49 - CONCLUSION: No acute disease. Marck Mendoza MD Hand X-Ray 05/24/17 0000 Signed Impressions: Service Date/Time: Wednesday, May 24, 2017 21:23 - CONCLUSION: The osseous structures of the hand are grossly intact. Sukumar Butts MD Objective Remarks GENERAL: This is a well-nourished, well-developed male patient, in no apparent distress. SKIN: Cool and dry. HEAD: Atraumatic. Normocephalic. EYES: Pupils equal round and reactive, amblyopia. No scleral icterus. No injection or drainage. ENT: Nose without bleeding or purulent drainage. Airway patent. NECK: Trachea midline. CARDIOVASCULAR: Regular rate and rhythm without murmurs, gallops, or rubs. RESPIRATORY: Clear to auscultation. Breath sounds equal bilaterally. No wheezes , rales, or rhonchi. GASTROINTESTINAL: Abdomen soft, non-tender, nondistended. Hyperactive bowel sounds. MUSCULOSKELETAL: Extremities without clubbing, cyanosis, or edema. NEUROLOGICAL: Awake, alert oriented to self. Able to move all extremities spontaneously. Motor and sensory grossly within normal limits. No focal neurologic findings appreciated. Normal speech. Childlike demeanor. A/P Assessment and Plan 31-year-old male with a past medical history significant for mild MR, schizophrenia, hepatitis B, MANISHA and hypertension who is domiciled in a prison who was admitted to inpatient psychiatric unit under Baumann act as he was hearing voices telling him to kill himself. Patient has developed complaints of hematuria, dysuria, diarrhea and shortness of breath with activity. Hospitalist services have been consulted for medical management. Schizoaffective disorder -Management per psychiatric team Dysuria Hematuria -UA unremarkable -No hematuria or dysuria reported by patient -chlamydia/gonorrhea not detected Dyspnea with exertion Ongoing tobaccoism Sore throat -Patient denies history of asthma but does have significant smoking history -lungs clear. O2 sats 98% on room air -Chest x-ray shows no acute cardiopulmonary process -DuoNeb's as needed -Reiterated importance of smoking cessation -Menthol throat lozenges as needed, afebrile with no other complaints. Hyperammonemia -ammonia level 208-->79--101 -Increase lactulose dose to 3 times a day. Hypertension, controlled -continue Norvasc 5 mg daily -Monitor BP and adjust treatment accordingly -Clonidine when necessary with parameters Hepatitis B -Per patient, he was treated -Recommend follow-up with gastroenterology as outpatient Hx of MANISHA -Patient may use CPAP machine from home Vitamin D deficiency -Vitamin D level 15.2 04/02/17 -Given Ergocalciferol 50,000 units once -Continue on po supplementation Vit D 2000u daily -Patient will need a follow-up with his PCP and have vitamin D level rechecked in 3 months Constipation -Lactulose has been increased to 3 times daily DVT prophylaxis -Patient is ambulatory Discussed with nurse. Monico Cosme Jun 11, 2017 15:01
--- NOTE | 2017-06-11 15:08 | HHI.PYPN ---
Subjective Remarks Reviewed electronic medical record, labs, and discussed case with staff. Follow- up conducted in [facility]. Patient advises that he would like to be discharged today. Explained that he will be going to his new care setting on Wednesday and he has to wait until then. Patient is child-like and impulsive. Discharge set for Wednesday. Mental Status Examination Appearance: Appropriate Consciousness: Alert Orientation: Person, Place Motor Activity: Normal gait Speech: Hesitant, Slow Language: Adequate Fund of Knowledge: Inadequate Attention and Concentration: Other (fair) Memory: Unremarkable Mood: Sad, Other (guarded and vigilant) Affect: Other (decreased range and intensity) Thought Process & Associations: Other (simple/concrete) Thought Content: Hallucinations Hallucination Type: Auditory (denies) Delusion Type: None Suicidal Ideation: Yes (fleeting) Suicidal Plan: No Suicidal Intention: No Homicidal Ideation: No Homicidal Plan: No Homicidal Intention: No Insight: Poor Judgment: Poor Results Labs Test 06/11/17 10:07 Ammonia 101 MCMOL/L Date/Time Source Procedure Growth Status 06/08/17 15:45 Stool Stool - Final Complete Vitals/IOs Vital Signs Date Time Temp Pulse Resp B/P (MAP) Pulse Ox O2 Delivery O2 Flow Rate FiO2 06/11/17 05:51 96.9 72 18 138/83 (101) 98 Assessment & Plan Problem List: (1) Schizoaffective disorder, depressive type ICD Codes: F25.1 - Schizoaffective disorder, depressive type Assessment & Plan Estimated LOS: Patient to be discharged on Wednesday. Justification for Cont. Inpt. Awaiting safe discharge. Request HC Surrog/Guard Advoc?: Yes (request for healthcare surrogate and guardian advocate was initiated on 05/24) Chelo Yeung Jun 11, 2017 15:08
[2017-06-11 18:00] VITALS: BP 158/76; PULSE 93; RESP 16; TEMP 98.2; O2SAT 96
[2017-06-11] MEDS: OLANZapine 10 MG TAB PO SCH (21:05)
[2017-06-11] MEDS: MIRTAZAPINE 15 MG TAB PO SCH (21:05)
[2017-06-12] MEDS: ACETAMINOPHEN 325 MG TAB PO PRN ×2 (05:16→11:25)
[2017-06-12 06:15] VITALS: BP 124/65; PULSE 57; RESP 16; TEMP 96.9; O2SAT 100
[2017-06-12 06:17] VITALS: BP 158/95; RESP 18; TEMP 96.9; O2SAT 99
[2017-06-12] MEDS: BENZTROPINE MESYLATE 1 MG TAB PO SCH ×3 (08:22→18:14)
[2017-06-12] MEDS: LACTULOSE SYRUP 20 GM/30 ML CUP PO SCH ×2 (08:22→20:22)
[2017-06-12] MEDS: CHOLECALCIFEROL (VIT D3) 1000 UNIT TAB PO SCH (08:23)
[2017-06-12] MEDS: amLODIPine BESYLATE 5 MG TAB PO SCH (08:24)
[2017-06-12] MEDS: DIVALPROEX SODIUM E.R. 500 MG TAB PO SCH ×2 (08:24→20:22)
[2017-06-12] MEDS: HALOPERIDOL 10 MG TAB PO SCH ×3 (08:24→18:14)
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
[2017-06-12] MEDS ORDERED: IBUPROFEN 400 MG TAB PO PRN (12:00)
--- NOTE | 2017-06-12 16:52 | RADRPT ---
EXAM DATE/TIME: 06/12/2017 15:30 [facility] COMPARISON: No previous studies available for comparison. INDICATIONS : Left knee swelling and pain that started today. No known injury. Pain around whole knee. MEDICAL HISTORY : Arthritis. Schizophrenia. SURGICAL HISTORY : None. ENCOUNTER: Initial ACUITY: 1 day PAIN SCORE: 10/10 LOCATION: Left knee. FINDINGS: An acute fracture is not seen. There is a mild joint effusion. There is chronic calcification seen ar ound the superior aspect of the medial femoral condyle likely from prior injury. There is minimal spu rring at the medial joint space. CONCLUSION: 1. No acute bony injury seen. 2. Mild joint effusion. 3. Chronic calcification seen on the medial femoral condyle likely from prior injury. A prior medial collateral ligament injury could create this appearance. Anthony Messina MD on June 12, 2017 at 16:48 Board Certified Radiologist. This report was verified electronically.
--- NOTE | 2017-06-12 16:57 | HHI.PYPN ---
Subjective Remarks Pt seen and discussed with staff.He is compliant with mediations and denies side effects. No behavioral problems on unit. He is tearful and states that he misses his mother. No SI/HI Mental Status Examination Appearance: Appropriate Consciousness: Alert Orientation: Person, Place Motor Activity: Normal gait Speech: Hesitant, Slow Language: Adequate Fund of Knowledge: Inadequate Attention and Concentration: Other (fair) Memory: Unremarkable Mood: Sad Affect: Flat Thought Process & Associations: Other (simple/concrete) Thought Content: Appropriate Delusion Type: None Suicidal Ideation: Yes (fleeting) Suicidal Plan: No Suicidal Intention: No Homicidal Ideation: No Homicidal Plan: No Homicidal Intention: No Insight: Poor Judgment: Poor Results Labs Date/Time Source Procedure Growth Status 06/08/17 15:45 Stool Stool - Final Complete Vitals/IOs Vital Signs Date Time Temp Pulse Resp B/P (MAP) Pulse Ox O2 Delivery O2 Flow Rate FiO2 06/12/17 06:17 96.9 18 158/95 (116) 99 06/11/17 18:00 93 Assessment & Plan Problem List: (1) Schizoaffective disorder, depressive type ICD Codes: F25.1 - Schizoaffective disorder, depressive type Assessment & Plan Continue curent tx plan Estimated LOS: days Justification for Cont. Inpt. risk of decompensation Request HC Surrog/Guard Advoc?: Yes (request for healthcare surrogate and guardian advocate was initiated on 05/24) Kiersten Silver MD Jun 12, 2017 16:57
[2017-06-12 18:11] VITALS: BP 155/71; PULSE 91; RESP 19; TEMP 97.9; O2SAT 98
[2017-06-12] MEDS: OLANZapine 10 MG TAB PO SCH (20:22)
[2017-06-12] MEDS: MIRTAZAPINE 15 MG TAB PO SCH (20:22)
[2017-06-13 05:45] VITALS: BP 129/76; PULSE 76; RESP 20; TEMP 97.5; O2SAT 98
[2017-06-13] MEDS: BENZTROPINE MESYLATE 1 MG TAB PO SCH ×3 (08:54→17:09)
[2017-06-13] MEDS: CHOLECALCIFEROL (VIT D3) 1000 UNIT TAB PO SCH (08:54)
[2017-06-13] MEDS: HALOPERIDOL 10 MG TAB PO SCH ×3 (08:54→17:09)
[2017-06-13] MEDS: amLODIPine BESYLATE 5 MG TAB PO SCH (08:55)
[2017-06-13] MEDS: DIVALPROEX SODIUM E.R. 500 MG TAB PO SCH ×2 (08:55→20:37)
[2017-06-13] MEDS: LACTULOSE SYRUP 20 GM/30 ML CUP PO SCH ×2 (08:57→20:37)
--- NOTE | 2017-06-13 12:46 | HHI.PR ---
Subjective Remarks Follow-up hypertension, constipation, left knee pain. Patient seen and examined in his room. He denies any fevers, chills, nausea, vomiting, diarrhea. Moving his bowels, 2 bowel movements today, denies any abdominal pain or discomfort. Left knee pain is about the same. Objective Vitals Vital Signs Date Time Temp Pulse Resp B/P (MAP) Pulse Ox O2 Delivery O2 Flow Rate FiO2 06/13/17 05:45 97.5 76 20 129/76 (93) 98 06/12/17 18:11 97.9 91 19 155/71 (99) 98 Imaging Last Impressions Chest X-Ray 06/05/17 0000 Signed Impressions: Service Date/Time: Monday, June 05, 2017 15:49 - CONCLUSION: No acute disease. Marck Mendoza MD Hand X-Ray 05/24/17 0000 Signed Impressions: Service Date/Time: Wednesday, May 24, 2017 21:23 - CONCLUSION: The osseous structures of the hand are grossly intact. Sukumar Butts MD Objective Remarks GENERAL: This is a well-nourished, well-developed male patient, in no apparent distress. SKIN: Cool and dry. HEAD: Atraumatic. Normocephalic. EYES: Pupils equal round and reactive, amblyopia. No scleral icterus. No injection or drainage. ENT: Nose without bleeding or purulent drainage. Airway patent. NECK: Trachea midline. CARDIOVASCULAR: Regular rate and rhythm without murmurs, gallops, or rubs. RESPIRATORY: Clear to auscultation. Breath sounds equal bilaterally. No wheezes , rales, or rhonchi. GASTROINTESTINAL: Abdomen soft, non-tender, nondistended. Hyperactive bowel sounds. MUSCULOSKELETAL: Extremities without clubbing or cyanosis. Left knee with knee edema noted, +crepitus with active ROM, +tenderness with medial and lateral palpation, limited ROM with flexion due to pain although better compared to yesterday. No warmth or erythema noted. NEUROLOGICAL: Awake, alert oriented to self. Able to move all extremities spontaneously. Motor and sensory grossly within normal limits. No focal neurologic findings appreciated. Normal speech. Childlike demeanor. A/P Assessment and Plan 31-year-old male with a past medical history significant for mild MR, schizophrenia, hepatitis B, MANISHA and hypertension who is domiciled in a custodial who was admitted to inpatient psychiatric unit under Baumann act as he was hearing voices telling him to kill himself. Patient has developed complaints of hematuria, dysuria, diarrhea and shortness of breath with activity. Hospitalist services have been consulted for medical management. Schizoaffective disorder -Management per psychiatric team Dysuria Hematuria -UA unremarkable -No hematuria or dysuria reported by patient -chlamydia/gonorrhea not detected Dyspnea with exertion Ongoing tobaccoism Sore throat -Patient denies history of asthma but does have significant smoking history -lungs clear. O2 sats 98% on room air -Chest x-ray shows no acute cardiopulmonary process -DuoNeb's as needed -Reiterated importance of smoking cessation -Menthol throat lozenges as needed, afebrile with no other complaints. Hyperammonemia -ammonia level 208-->79--101 -Continue lactulose to BID, can have ammonia level checked as outpatient. Hypertension, controlled -continue Norvasc 5 mg daily -BP elevated this AM, prior to this was relatively well controlled. Continue monitoring and adjusting accordingly -Clonidine when necessary with parameters Hepatitis B -Per patient, he was treated -Recommend follow-up with gastroenterology as outpatient Hx of MANISHA -Patient may use CPAP machine from home Vitamin D deficiency -Vitamin D level 15.2 04/02/17 -Given Ergocalciferol 50,000 units once -Continue on po supplementation Vit D 2000u daily -Patient will need a follow-up with his PCP and have vitamin D level rechecked in 3 months Left knee pain and swelling - Patient with a history of knee injury and arthritis -Knee x-ray reviewed with patient. No acute bony injury seen, mild joint effusion, chronic calcification seen on medial femoral condyle likely from prior injury, prior medial collateral ligament injury could creat this appearance. - Discussed with patient that effusion is mild, he can follow up with this as out patient. - Encouraged to use Tylenol and Ibuprofen PRN for pain DVT prophylaxis -Patient is ambulatory Discussed with nurse. Patient will be D/C to custodial tomorrow. Monico Cosme Jun 13, 2017 12:46
[2017-06-13 15:36] VITALS: BP 129/71; PULSE 77; RESP 18; TEMP 99; O2SAT 100
--- NOTE | 2017-06-13 16:01 | HHI.PYPN ---
Subjective Remarks Pt seen and discussed with staff. No behavioral problems. He is compliant with medications. No SI/HI. Pt reports that mood is good and he is free from AH. Mental Status Examination Appearance: Appropriate Consciousness: Alert Orientation: Person, Place Motor Activity: Normal gait Speech: Unremarkable, Hesitant Language: Adequate Fund of Knowledge: Inadequate Attention and Concentration: Other (fair) Memory: Unremarkable Mood: Appropriate Affect: Appropriate Thought Process & Associations: Other (simple/concrete) Thought Content: Appropriate Delusion Type: None Suicidal Ideation: No Suicidal Plan: No Suicidal Intention: No Homicidal Ideation: No Homicidal Plan: No Homicidal Intention: No Insight: Poor Judgment: Poor Results Labs Date/Time Source Procedure Growth Status 06/08/17 15:45 Stool Stool - Final Complete Vitals/IOs Vital Signs Date Time Temp Pulse Resp B/P (MAP) Pulse Ox O2 Delivery O2 Flow Rate FiO2 06/13/17 15:36 99.0 77 18 129/71 (90) 100 Assessment & Plan Problem List: (1) Schizoaffective disorder, depressive type ICD Codes: F25.1 - Schizoaffective disorder, depressive type Assessment & Plan continue current tx plan. Estimated LOS: days Justification for Cont. Inpt. risk of decompensation Request HC Surrog/Guard Advoc?: Yes (request for healthcare surrogate and guardian advocate was initiated on 05/24) Kiersten Silver MD Jun 13, 2017 16:01
[2017-06-13] MEDS: OLANZapine 10 MG TAB PO SCH (20:37)
[2017-06-13] MEDS: MIRTAZAPINE 15 MG TAB PO SCH (20:37)
[2017-06-13] MEDS: LORazepam 1 MG TAB PO PRN (22:59)
[2017-06-14 05:51] VITALS: BP 119/54; PULSE 78; RESP 19; TEMP 97.4; O2SAT 96
[2017-06-14] MEDS: HALOPERIDOL 10 MG TAB PO SCH ×2 (08:26→12:17)
[2017-06-14] MEDS: CHOLECALCIFEROL (VIT D3) 1000 UNIT TAB PO SCH (08:26)
[2017-06-14] MEDS: DIVALPROEX SODIUM E.R. 500 MG TAB PO SCH (08:26)
[2017-06-14] MEDS: LACTULOSE SYRUP 20 GM/30 ML CUP PO SCH (08:26)
[2017-06-14] MEDS: amLODIPine BESYLATE 5 MG TAB PO SCH (08:27)
[2017-06-14] MEDS: BENZTROPINE MESYLATE 1 MG TAB PO SCH ×2 (08:27→12:17)
[2017-06-14] MEDS ORDERED: FLUT50SP EACH NARE (08:44)
[2017-06-14] MEDS ORDERED: AMLO5 PO (08:44)
[2017-06-14] MEDS ORDERED: MIRT45TA PO (08:44)
[2017-06-14] MEDS ORDERED: DEPA500T3 PO (08:44)
[2017-06-14] MEDS ORDERED: CHOL1000 PO (08:44)
[2017-06-14] MEDS ORDERED: HALO10TA PO (08:44)
[2017-06-14] MEDS ORDERED: Lactulose Liq PO (08:44)
[2017-06-14] MEDS ORDERED: Albuterol Hfa Inh INH (08:44)
[2017-06-14] MEDS ORDERED: BENZ0.5T PO (08:44)
[2017-06-14] MEDS ORDERED: OLAN10TA PO (08:44)
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
[2017-06-14] MEDS: LORazepam 1 MG TAB PO PRN (12:17)
== END 2017-06-14 17:31 | DRG 885 ==
LOC: NEDAMB 20:27 → NEDA 05-20 10:45 → H270 05-20 15:38 → H260 05-29 18:26 → H270 06-05 19:41 → H260 06-08 13:40 → H270 06-08 19:33
PROVIDERS: ADMIT Psychiatry & Neurology Psychiatry; ATTEND Psychiatry & Neurology Psychiatry
DX: F25.1 Schizoaffective disorder, depressive type (principal); K52.1 Toxic gastroenteritis and colitis; E72.20 Disorder of urea cycle metabolism, unspecified; R45.851 Suicidal ideations; F23 Brief psychotic disorder; F70 Mild intellectual disabilities; G47.33 Obstructive sleep apnea (adult) (pediatric); I10 Essential (primary) hypertension; R31.9 Hematuria, unspecified; R30.0 Dysuria; J45.909 Unspecified asthma, uncomplicated; E55.9 Vitamin D deficiency, unspecified; T47.3X5A Adverse effect of saline and osmotic laxatives, initial encounter; J02.9 Acute pharyngitis, unspecified; K59.00 Constipation, unspecified; M17.12 Unilateral primary osteoarthritis, left knee; F17.200 Nicotine dependence, unspecified, uncomplicated; Z81.8 Family history of other mental and behavioral disorders; Z91.14 Patient's other noncompliance with medication regimen; Z91.5 Personal history of self-harm
CPT/HCPCS: 71045; 73130; 73564; 80048; 80061; 80076; 80164; 81001; 82140; 83036; 83735; 84100; 85025; 87491; 87493; 87506; 87591; 93005; J1200; J1630; J2060